=== PATIENT | female | born 1960 | race Hispanic/Latino ===

== ENCOUNTER 2017-09-12 13:34 | Emergency (ER) | payer MEDICAID ==
[2017-09-12 14:24] LABS: APPEARANCE,URINE Clear (CLEAR); BILIRUBIN,URINE Negative (NEGATIVE); COLOR,URINE Yellow (YELLOW); GLUCOSE, URINE (UA) Negative (NEGATIVE); KETONES,URINE Trace mg/dL (NEGATIVE); LEUKOCYTE ESTERASE ,URINE Negative (NEGATIVE); NITRATE,URINE Negative (NEGATIVE); OCCULT BLOOD,URINE Negative (NEGATIVE); PH,URINE 5.5 (5.0-8.0); PROTEIN,URINE Negative (NEGATIVE)
[2017-09-12 14:35] LABS: BACTERIA,URINE Rare /HPF (None Seen); RBC,URINE None Seen /HPF (0-1); WBC,URINE 0-1 /HPF (0-1)
[2017-09-12] MEDS ORDERED: ONDANSETRON HCL 4 MG/2 ML VIAL ONE (14:37)
[2017-09-12 15:00] LABS: BASOPHILS % (AUTO) 0.4 % (0.0-5.0); EOSINOPHILS % (AUTO) 2.2 % (0.0-8.0); HEMATOCRIT 41.1 % (36-48); LYMPHOCYTES % (AUTO) 23.5 % (21.0-51.0); MEAN CORPUSCULAR HEMOGLOBIN 27.5 pg (27.0-33.0); MEAN CORPUSCULAR HGB CONC 33.7 g/dL (32.0-36.0); MEAN CORPUSCULAR VOLUME 81.6 fL (79-99); MONOCYTES % (AUTO) 7.4 % (3.0-13.0); NEUTROPHILS % (AUTO) 66.5 % (40.0-77.0); PLATELET COUNT (AUTO) 223 K/uL (130-400); RED BLOOD CELL COUNT(AUTO) 5.03 MIL/uL (4.00-5.50); RED CELL DISTRIBUTION WIDTH 14.7 % (11.0-15.5); WHITE BLOOD COUNT (AUTO) 5.7 K/uL (4.8-10.8)
[2017-09-12 15:18] LABS: CREATININE 0.7 mg/dL (0.5-1.5); POTASSIUM 3.5 mmol/L (3.5-5.1)
[2017-09-12 15:20] LABS: ALBUMIN 3.4 g/dL (3.5-5.0); BILIRUBIN,DIRECT 0.1 mg/dL (0.0-0.3); BILIRUBIN,TOTAL 0.6 mg/dL (0.2-1.0); TOTAL PROTEIN, SERUM 7.1 g/dL (6.0-8.3)
[2017-09-12] MEDS ORDERED: HYOSCYAMINE SULFATE 0.125 MG TAB.SUBL SL ONE (15:48)
[2017-09-12] MEDS ORDERED: KETOROLAC TROMETHAMINE 30MG/ML ONE (15:48)
[2018-01-28] MEDS ORDERED: ATOR40TA71 PO (10:08)
[2018-01-28] MEDS ORDERED: CYCL30DR OP (10:08)
[2018-01-28] MEDS ORDERED: PANT40TA25 PO (10:08)
[2018-01-28] MEDS ORDERED: ERGO500014 PO (10:08)
[2018-01-28] MEDS ORDERED: METO5TAB87 PO (10:08)
[2018-01-28] MEDS ORDERED: HYDR-2534 PO (10:08)
[2018-01-28] MEDS ORDERED: SUCR1ORA3 PO (10:08)
[2018-01-28] MEDS ORDERED: METO-409 PO (10:08)
[2018-01-28] MEDS ORDERED: ISOS20TA7 PO (10:08)
[2018-01-28] MEDS ORDERED: ENAL20TA PO (10:08)
[2018-01-28] MEDS ORDERED: AMLO5TAB5 PO (10:08)
[2018-01-28] MEDS ORDERED: METF500T6 PO (10:08)
== END 2017-09-12 16:53 | disposition home or self-care (01) ==
LOC: EDH 13:34
DX: R10.84 Generalized abdominal pain (principal); M71.552 Other bursitis, not elsewhere classified, left hip; I25.10 Atherosclerotic heart disease of native coronary artery without angina pectoris; E11.9 Type 2 diabetes mellitus without complications; E78.5 Hyperlipidemia, unspecified; I10 Essential (primary) hypertension; Z90.49 Acquired absence of other specified parts of digestive tract; Z98.890 Other specified postprocedural states
CPT/HCPCS: 36415; 74176; 80048; 80076; 81001; 83690; 85025; 96374; 96375; 99285; J1885; J2405

== ENCOUNTER 2017-10-08 16:08 | Emergency (ER) | payer MEDICAID ==
[2017-10-08 16:51] LABS: BASOPHILS % (AUTO) 0.8 % (0.0-5.0); EOSINOPHILS % (AUTO) 3.8 % (0.0-8.0); HEMATOCRIT 40.3 % (36-48); LYMPHOCYTES % (AUTO) 33.1 % (21.0-51.0); MEAN CORPUSCULAR HEMOGLOBIN 28.4 pg (27.0-33.0); MEAN CORPUSCULAR HGB CONC 34.5 g/dL (32.0-36.0); MEAN CORPUSCULAR VOLUME 82.1 fL (79-99); MONOCYTES % (AUTO) 7.4 % (3.0-13.0); NEUTROPHILS % (AUTO) 54.9 % (40.0-77.0); PLATELET COUNT (AUTO) 239 K/uL (130-400); RED BLOOD CELL COUNT(AUTO) 4.91 MIL/uL (4.00-5.50); RED CELL DISTRIBUTION WIDTH 14.2 % (11.0-15.5); WHITE BLOOD COUNT (AUTO) 6.5 K/uL (4.8-10.8)
[2017-10-08 16:59] LABS: CREATININE 0.8 mg/dL (0.5-1.5); POTASSIUM 3.8 mmol/L (3.5-5.1)
[2017-10-08 17:03] LABS: ALBUMIN 3.5 g/dL (3.5-5.0); BILIRUBIN,TOTAL 0.3 mg/dL (0.2-1.0); TOTAL PROTEIN, SERUM 7.4 g/dL (6.0-8.3)
[2018-01-28] MEDS ORDERED: METF500T6 PO (10:08)
[2018-01-28] MEDS ORDERED: PANT40TA25 PO (10:08)
[2018-01-28] MEDS ORDERED: METO-409 PO (10:08)
[2018-01-28] MEDS ORDERED: ISOS20TA7 PO (10:08)
[2018-01-28] MEDS ORDERED: AMLO5TAB5 PO (10:08)
[2018-01-28] MEDS ORDERED: HYDR-2534 PO (10:08)
[2018-01-28] MEDS ORDERED: METO5TAB87 PO (10:08)
[2018-01-28] MEDS ORDERED: ERGO500014 PO (10:08)
[2018-01-28] MEDS ORDERED: SUCR1ORA3 PO (10:08)
[2018-01-28] MEDS ORDERED: CYCL30DR OP (10:08)
[2018-01-28] MEDS ORDERED: ENAL20TA PO (10:08)
[2018-01-28] MEDS ORDERED: ATOR40TA71 PO (10:08)
== END 2017-10-08 18:54 | disposition home or self-care (01) ==
LOC: EDH 16:08
DX: F41.9 Anxiety disorder, unspecified (principal); E11.9 Type 2 diabetes mellitus without complications; I10 Essential (primary) hypertension; I25.10 Atherosclerotic heart disease of native coronary artery without angina pectoris; E78.5 Hyperlipidemia, unspecified; Z98.890 Other specified postprocedural states
CPT/HCPCS: 36415; 80053; 84484; 85025; 93005

== ENCOUNTER 2017-11-20 13:46 | Emergency (ER) | payer MEDICAID ==
[2017-11-20] MEDS ORDERED: KETOROLAC TROMETHAMINE 30MG/ML ONE (15:04)
[2018-01-28] MEDS ORDERED: HYDR-2534 PO (10:08)
[2018-01-28] MEDS ORDERED: ENAL20TA PO (10:08)
[2018-01-28] MEDS ORDERED: ATOR40TA71 PO (10:08)
[2018-01-28] MEDS ORDERED: SUCR1ORA3 PO (10:08)
[2018-01-28] MEDS ORDERED: ISOS20TA7 PO (10:08)
[2018-01-28] MEDS ORDERED: CYCL30DR OP (10:08)
[2018-01-28] MEDS ORDERED: PANT40TA25 PO (10:08)
[2018-01-28] MEDS ORDERED: METO-409 PO (10:08)
[2018-01-28] MEDS ORDERED: ERGO500014 PO (10:08)
[2018-01-28] MEDS ORDERED: AMLO5TAB5 PO (10:08)
[2018-01-28] MEDS ORDERED: METF500T6 PO (10:08)
[2018-01-28] MEDS ORDERED: METO5TAB87 PO (10:08)
== END 2017-11-20 15:25 | disposition home or self-care (01) ==
LOC: EDH 13:46
DX: K08.89 Other specified disorders of teeth and supporting structures (principal); H92.01 Otalgia, right ear; I25.10 Atherosclerotic heart disease of native coronary artery without angina pectoris; E11.9 Type 2 diabetes mellitus without complications; E78.5 Hyperlipidemia, unspecified; I10 Essential (primary) hypertension
CPT/HCPCS: 96372; 99283; J1885

== ENCOUNTER 2018-01-21 03:58 | Emergency (ER) | payer MEDICAID ==
[2018-01-21] MEDS ORDERED: HYDROCODONE/ACETAMINOPHEN 7.5/325 MG 15 ML UDCUP ONE (04:32)
[2018-01-21 04:46] LABS: CREATININE 0.8 mg/dL (0.5-1.5); POTASSIUM 3.5 mmol/L (3.5-5.1)
[2018-01-21 04:51] LABS: ALBUMIN 3.3 g/dL (3.5-5.0); BILIRUBIN,TOTAL 0.2 mg/dL (0.2-1.0); TOTAL PROTEIN, SERUM 6.9 g/dL (6.0-8.3)
[2018-01-21 05:04] LABS: BASOPHILS % (AUTO) 0.5 % (0.0-5.0); EOSINOPHILS % (AUTO) 2.7 % (0.0-8.0); HEMATOCRIT 36.5 % (36-48); LYMPHOCYTES % (AUTO) 34.1 % (21.0-51.0); MEAN CORPUSCULAR HEMOGLOBIN 29.3 pg (27.0-33.0); MEAN CORPUSCULAR HGB CONC 34.7 g/dL (32.0-36.0); MEAN CORPUSCULAR VOLUME 84.5 fL (79-99); NEUTROPHILS % (AUTO) 54.7 % (40.0-77.0); NUCLEATED RED BLOOD CELLS 0.1 % (0.0-0.19); PLATELET COUNT (AUTO) 220 K/uL (130-400); RED BLOOD CELL COUNT(AUTO) 4.32 MIL/uL (4.00-5.50); RED CELL DISTRIBUTION WIDTH 14.6 % (11.0-15.5); WHITE BLOOD COUNT (AUTO) 8.1 K/uL (4.8-10.8)
[2018-01-21] MEDS ORDERED: KETOROLAC TROMETHAMINE 30MG/ML ONE (06:34)
[2018-01-28] MEDS ORDERED: PANT40TA25 PO (10:08)
[2018-01-28] MEDS ORDERED: ERGO500014 PO (10:08)
[2018-01-28] MEDS ORDERED: METF500T6 PO (10:08)
[2018-01-28] MEDS ORDERED: CYCL30DR OP (10:08)
[2018-01-28] MEDS ORDERED: METO5TAB87 PO (10:08)
[2018-01-28] MEDS ORDERED: HYDR-2534 PO (10:08)
[2018-01-28] MEDS ORDERED: AMLO5TAB5 PO (10:08)
[2018-01-28] MEDS ORDERED: ISOS20TA7 PO (10:08)
[2018-01-28] MEDS ORDERED: METO-409 PO (10:08)
[2018-01-28] MEDS ORDERED: ATOR40TA71 PO (10:08)
[2018-01-28] MEDS ORDERED: ENAL20TA PO (10:08)
[2018-01-28] MEDS ORDERED: SUCR1ORA3 PO (10:08)
== END 2018-01-21 06:50 | disposition home or self-care (01) ==
LOC: EDH 03:58
DX: R10.9 Unspecified abdominal pain (principal); G89.29 Other chronic pain; E11.9 Type 2 diabetes mellitus without complications; I10 Essential (primary) hypertension; E78.5 Hyperlipidemia, unspecified; I25.10 Atherosclerotic heart disease of native coronary artery without angina pectoris; Z98.51 Tubal ligation status; Z90.49 Acquired absence of other specified parts of digestive tract
CPT/HCPCS: 36415; 76705; 80053; 85025; 96374; 99285; J1885

== ENCOUNTER 2018-01-29 08:49 | Day surgery (SDC) | payer MEDICAID ==
[~2018-01-29] VITALS: Ht 160 cm; Wt 106.6 kg
[~2018-01-29 08:49] MED LIST: AMLO5TAB5 PO; ATOR40TA71 PO; CYCL30DR OP; ENAL20TA PO; ERGO500014 PO; HYDR-2534 PO; ISOS20TA7 PO; METF500T6 PO; METO-409 PO; METO5TAB87 PO; PANT40TA25 PO; SODIUM CHLORIDE 0.9% 1000ML 1,000 ML IV ONE; SUCR1ORA3 PO
[2018-01-29 09:33] VITALS: BP 148/62
[2018-01-29] MEDS ORDERED: PROPOFOL 10 MG/ML 20ML VIAL IV ONE ×2 (10:09)
[2018-01-29 10:21] VITALS: BP 117/60
[2018-01-29 10:27] VITALS: BP 121/62
[2018-01-29 10:30] VITALS: BP 117/68
== END 2018-01-29 10:51 | disposition home or self-care (01) ==
LOC: ENDO 08:49 → DAH 08:49 → ENDO 10:51
PROVIDERS: ATTEND Internal Medicine Gastroenterology
DX: K29.50 Unspecified chronic gastritis without bleeding (principal); K22.8 Other specified diseases of esophagus; E78.5 Hyperlipidemia, unspecified; I10 Essential (primary) hypertension; E66.9 Obesity, unspecified; M19.90 Unspecified osteoarthritis, unspecified site; M54.16 Radiculopathy, lumbar region; E11.43 Type 2 diabetes mellitus with diabetic autonomic (poly)neuropathy; K31.84 Gastroparesis; G25.81 Restless legs syndrome; Z90.49 Acquired absence of other specified parts of digestive tract; Z98.890 Other specified postprocedural states; Z68.41 Body mass index [BMI] 40.0-44.9, adult; Z79.899 Other long term (current) drug therapy; Z79.84 Long term (current) use of oral hypoglycemic drugs; Z79.4 Long term (current) use of insulin; K21.9 Gastro-esophageal reflux disease without esophagitis; K76.0 Fatty (change of) liver, not elsewhere classified; G47.30 Sleep apnea, unspecified
CPT/HCPCS: 43239; 82948 ×2; 88305; 88312; A4606; J2704 ×2; J7030

== ENCOUNTER → 2018-09-09 | Outpatient (CLI) | payer MEDICAID ==
[~2018-09-09] MED LIST changes: +METF-444 PO; -METF500T6 PO; -SODIUM CHLORIDE 0.9% 1000ML 1,000 ML IV ONE
== END | disposition home or self-care (01) ==
LOC: RAH 09:24
PROVIDERS: ATTEND Internal Medicine Gastroenterology
DX: K21.9 Gastro-esophageal reflux disease without esophagitis (principal); K31.84 Gastroparesis; R13.10 Dysphagia, unspecified
CPT/HCPCS: 74240

== ENCOUNTER 2018-09-16 16:36 | Observation (INO) | payer MEDICAID ==
[2018-09-16 17:08] LABS: BASOPHILS % (AUTO) 0.4 % (0.0-5.0); EOSINOPHILS % (AUTO) 2.5 % (0.0-8.0); HEMATOCRIT 40.6 % (36-48); LYMPHOCYTES % (AUTO) 36.6 % (21.0-51.0); MEAN CORPUSCULAR HEMOGLOBIN 27.1 pg (27.0-33.0); MEAN CORPUSCULAR VOLUME 81.9 fL (79-99); MONOCYTES % (AUTO) 8.7 % (3.0-13.0); NEUTROPHILS % (AUTO) 51.8 % (40.0-77.0); NUCLEATED RED BLOOD CELLS 0.1 % (0.0-0.19); PLATELET COUNT (AUTO) 207 K/uL (130-400); RED BLOOD CELL COUNT(AUTO) 4.95 MIL/uL (4.00-5.50); RED CELL DISTRIBUTION WIDTH 14.9 % (11.0-15.5); WHITE BLOOD COUNT (AUTO) 6.6 K/uL (4.8-10.8)
[2018-09-16] MEDS ORDERED: ONDANSETRON HCL 4 MG/2 ML VIAL ONE (17:13)
[2018-09-16] MEDS ORDERED: MORPHINE SULFATE 4 MG/1ML SYG ONE ×2 (17:13→19:55)
[2018-09-16 17:21] LABS: CARBON DIOXIDE 28 mmol/L (21-32); CHLORIDE 103 mmol/L (101-111); CREATININE 0.8 mg/dL (0.5-1.5); GLOMERULAR FILTR. RATE CALC 78 mL/min (>60); GLUCOSE,RANDOM 117 mg/dL (70-105); POTASSIUM 4.1 mmol/L (3.5-5.1); SODIUM SERUM 141 mmol/L (136-145); UREA NITROGEN, BLOOD 14 mg/dL (7-18)
[2018-09-16 17:31] LABS: INR 0.92 (0.85-1.15); PARTIAL THROMBOPLASTIN TIME 25.1 SEC (26.3-35.5); PROTHROMBIN TIME 9.7 SEC (9.6-11.6)
[2018-09-16 17:34] LABS: ALANINE AMINOTRANSFERASE 40 U/L (12-78); ALBUMIN 3.5 g/dL (3.5-5.0); ASPARTATE AMINOTRANSFERASE 24 U/L (10-37); BILIRUBIN,TOTAL 0.3 mg/dL (0.2-1.0); CREATINE KINASE, TOTAL 78 U/L (21-232); MYOGLOBIN 29 ng/mL (10-92); TOTAL PROTEIN, SERUM 7.1 g/dL (6.0-8.3); TROPONIN I < 0.04 ng/mL (0.00-0.06)
[2018-09-16] MEDS ORDERED: IOHEXOL 350 MG/ML 100ML INFUS..BTL IV ONE ×2 (17:53→18:32)
[2018-09-16] MEDS ORDERED: LABETALOL HCL 5 MG/ML 20ML VIAL IV ONE (19:36)
[2018-09-16] MEDS ORDERED: ASPIRIN 325 MG TABLET ONE (19:55)
[2018-09-16] MEDS ORDERED: NITROGLYCERIN 1GM/1 INCH PACKET TD ONE (19:55)
[2018-09-16] MEDS ORDERED: ACETAMINOPHEN 325 MG TAB PO PRN (21:30)
[2018-09-16] MEDS ORDERED: ONDANSETRON HCL 4 MG/2 ML VIAL IV PRN (21:30)
[2018-09-16] MEDS ORDERED: NITROGLYCERIN 1GM/1 INCH PACKET TD SCH (21:30)
[2018-09-16] MEDS ORDERED: MORPHINE SULFATE 2 MG/ML 1ML SYG IV PRN (21:30)
[2018-09-16 21:32] LABS: APPEARANCE,URINE Cloudy (CLEAR); BILIRUBIN,URINE Negative (NEGATIVE); COLOR,URINE Yellow (YELLOW); GLUCOSE, URINE (UA) Negative (NEGATIVE); KETONES,URINE Negative (NEGATIVE); LEUKOCYTE ESTERASE ,URINE Negative (NEGATIVE); NITRATE,URINE Negative (NEGATIVE); OCCULT BLOOD,URINE Negative (NEGATIVE); PROTEIN,URINE Negative (NEGATIVE); UROBILINOGEN,URINE 0.2 mg/dL (0.2-1.0)
[2018-09-16 21:55] LABS: BACTERIA,URINE Rare /HPF (None Seen); MUCUS,URINE None Seen LPF (None Seen); RBC,URINE 0-1 /HPF (0-1); WBC,URINE 0-1 /HPF (0-1)
[2018-09-17] MEDS ORDERED: ONDANSETRON HCL 4 MG/2 ML VIAL ONE ×2 (01:30→05:50)
[2018-09-17] MEDS ORDERED: MORPHINE SULFATE 2 MG/ML 1ML SYG ONE ×2 (01:30→05:51)
[2018-09-17 05:54] LABS: BASOPHILS % (AUTO) 0.4 % (0.0-5.0); EOSINOPHILS % (AUTO) 2.6 % (0.0-8.0); HEMATOCRIT 38.6 % (36-48); LYMPHOCYTES % (AUTO) 34.1 % (21.0-51.0); MEAN CORPUSCULAR HEMOGLOBIN 27.5 pg (27.0-33.0); MEAN CORPUSCULAR HGB CONC 33.6 g/dL (32.0-36.0); MEAN CORPUSCULAR VOLUME 81.8 fL (79-99); MONOCYTES % (AUTO) 7.9 % (3.0-13.0); NUCLEATED RED BLOOD CELLS 0.1 % (0.0-0.19); PLATELET COUNT (AUTO) 216 K/uL (130-400); RED BLOOD CELL COUNT(AUTO) 4.71 MIL/uL (4.00-5.50); RED CELL DISTRIBUTION WIDTH 15.5 % (11.0-15.5); WHITE BLOOD COUNT (AUTO) 5.9 K/uL (4.8-10.8)
[2018-09-17 06:11] LABS: CREATININE 0.6 mg/dL (0.5-1.5); POTASSIUM 4.3 mmol/L (3.5-5.1)
[2018-09-17 06:17] LABS: ALBUMIN 3.1 g/dL (3.5-5.0); BILIRUBIN,TOTAL 0.4 mg/dL (0.2-1.0); TOTAL PROTEIN, SERUM 6.7 g/dL (6.0-8.3)
[2018-09-17] MEDS ORDERED: ASPIRIN 325 MG TABLET ONE (08:24)
[2018-09-17] MEDS ORDERED: AMLODIPINE BESYLATE 5 MG TAB PO ONE (08:25)
[2018-09-17] MEDS ORDERED: NITROGLYCERIN 1GM/1 INCH PACKET TD ONE (08:25)
[2018-09-17] MEDS ORDERED: ENOXAPARIN SODIUM 40 MG/0.4 ML SYRINGE SQ ONE (08:25)
[2018-09-17] MEDS ORDERED: FAMOTIDINE/PF 20 MG/2 ML VIAL IV ONE (08:26)
[2018-09-17] MEDS ORDERED: METOCLOPRAMIDE 5 MG TABLET ONE (08:26)
[2018-09-17] MEDS ORDERED: SUCRALFATE 1 GM TABLET ONE (08:26)
[2018-09-17] MEDS ORDERED: NITROGLYCERIN 1GM/1 INCH PACKET TD SCH (08:52)
[2018-09-17] MEDS ORDERED: AMLODIPINE BESYLATE 5 MG TAB PO SCH (09:00)
[2018-09-17] MEDS ORDERED: ASPIRIN 325 MG TABLET PO SCH (09:00)
[2018-09-17] MEDS ORDERED: SUCRALFATE 1 GM/10 ML PO SCH (09:00)
[2018-09-17] MEDS ORDERED: METOCLOPRAMIDE 5 MG TABLET PO SCH (09:00)
[2018-09-17] MEDS ORDERED: PANTOPRAZOLE SODIUM 40 MG TABLET.DR PO SCH (09:00)
[2018-09-17] MEDS ORDERED: Cyclosporine (Restasis) 1 EACH OP SCH (09:00)
[2018-09-17] MEDS ORDERED: ATORVASTATIN CALCIUM 40 MG TABLET PO SCH (09:00)
[2018-09-17] MEDS ORDERED: Metoprolol Succinate 100 MG PO SCH (09:00)
[2018-09-17] MEDS ORDERED: METFORMIN HCL 500 MG TABLET PO SCH (09:00)
[2018-09-17] MEDS ORDERED: HYDROCHLOROTHIAZIDE 25 MG TABLET PO SCH (09:00)
[2018-09-17] MEDS ORDERED: ENALAPRIL MALEATE 10 MG TABLET PO SCH (09:00)
[2018-09-17] MEDS ORDERED: ENOXAPARIN SODIUM 40 MG/0.4 ML SYRINGE SQ SCH (09:00)
[2018-09-17] MEDS ORDERED: FAMOTIDINE/PF 20 MG/2 ML VIAL IV SCH (09:00)
[2018-09-17] MEDS ORDERED: ISOSORBIDE MONONITRATE 20 MG TABLET PO SCH ×2 (09:00)
[2018-09-17] MEDS ORDERED: INSULIN HUMULIN R 100 UNIT/ML 3ML SQ SCH (11:30)
== END 2018-09-17 13:15 | disposition home or self-care (01) ==
LOC: EDH 16:36 → EDHIP 16:37
PROVIDERS: ADMIT Internal Medicine; ATTEND Internal Medicine
DX: I25.110 Atherosclerotic heart disease of native coronary artery with unstable angina pectoris (principal); I11.9 Hypertensive heart disease without heart failure; E11.9 Type 2 diabetes mellitus without complications; E78.5 Hyperlipidemia, unspecified; N20.0 Calculus of kidney; N28.1 Cyst of kidney, acquired; E66.01 Morbid (severe) obesity due to excess calories; Z79.84 Long term (current) use of oral hypoglycemic drugs; Z96.653 Presence of artificial knee joint, bilateral; Z82.49 Family history of ischemic heart disease and other diseases of the circulatory system; Z82.3 Family history of stroke; Z91.81 History of falling; Z83.3 Family history of diabetes mellitus; Z90.49 Acquired absence of other specified parts of digestive tract; Z98.51 Tubal ligation status; Z79.01 Long term (current) use of anticoagulants
CPT/HCPCS: 36415 ×2; 71045; 71275; 74174; 80053 ×2; 81001; 82550; 83874; 84484 ×3; 85025 ×2; 85378; 85610; 85730; 93005; 99291; G0378 ×21; J1650; J2270 ×2; J2405 ×3; J3490 ×2; Q9967 ×2

== ENCOUNTER 2018-09-21 01:35 | Observation (INO) | payer MEDICAID ==
[~2018-09-21] VITALS: Ht 160 cm; Wt 110.8 kg
[~2018-09-21 01:35] MED LIST changes: -ENAL20TA PO; -HYDR-2534 PO; -METO5TAB87 PO
[2018-09-21 02:02] LABS: BASOPHILS % (AUTO) 0.6 % (0.0-5.0); EOSINOPHILS % (AUTO) 3.7 % (0.0-8.0); HEMATOCRIT 40.6 % (36-48); LYMPHOCYTES % (AUTO) 39.1 % (21.0-51.0); MEAN CORPUSCULAR HEMOGLOBIN 27.5 pg (27.0-33.0); MEAN CORPUSCULAR HGB CONC 33.4 g/dL (32.0-36.0); MEAN CORPUSCULAR VOLUME 82.5 fL (79-99); MONOCYTES % (AUTO) 9.2 % (3.0-13.0); NEUTROPHILS % (AUTO) 47.4 % (40.0-77.0); NUCLEATED RED BLOOD CELLS 0.1 % (0.0-0.19); PLATELET COUNT (AUTO) 194 K/uL (130-400); RED BLOOD CELL COUNT(AUTO) 4.92 MIL/uL (4.00-5.50); RED CELL DISTRIBUTION WIDTH 14.6 % (11.0-15.5); WHITE BLOOD COUNT (AUTO) 6.1 K/uL (4.8-10.8)
[2018-09-21 02:11] LABS: CREATININE 0.8 mg/dL (0.5-1.5); POTASSIUM 4.3 mmol/L (3.5-5.1)
[2018-09-21 02:16] LABS: ALBUMIN 3.6 g/dL (3.5-5.0); BILIRUBIN,TOTAL 0.2 mg/dL (0.2-1.0); TOTAL PROTEIN, SERUM 7.2 g/dL (6.0-8.3)
[2018-09-21 02:22] LABS: INR 0.93 (0.85-1.15); PARTIAL THROMBOPLASTIN TIME 23.4 SEC (26.3-35.5); PROTHROMBIN TIME 9.8 SEC (9.6-11.6)
[2018-09-21 02:50] LABS: APPEARANCE,URINE Cloudy (CLEAR); BILIRUBIN,URINE Negative (NEGATIVE); COLOR,URINE Yellow (YELLOW); GLUCOSE, URINE (UA) Negative (NEGATIVE); KETONES,URINE Negative (NEGATIVE); LEUKOCYTE ESTERASE ,URINE Negative (NEGATIVE); NITRATE,URINE Negative (NEGATIVE); OCCULT BLOOD,URINE Negative (NEGATIVE); PROTEIN,URINE Negative (NEGATIVE); UROBILINOGEN,URINE 0.2 mg/dL (0.2-1.0)
[2018-09-21] MEDS ORDERED: LORAZEPAM 1 MG TABLET ONE (03:03)
[2018-09-21] MEDS: NITROGLYCERIN 1GM/1 INCH PACKET TD SCH ×3 (03:30→20:32)
[2018-09-21] MEDS ORDERED: MORPHINE SULFATE 2 MG/ML 1ML SYG IV PRN (03:30)
[2018-09-21] MEDS ORDERED: ACETAMINOPHEN 325 MG TAB PO PRN (03:30)
[2018-09-21] MEDS ORDERED: LORAZEPAM 1 MG TABLET PO PRN (03:30)
[2018-09-21] MEDS ORDERED: ONDANSETRON HCL 4 MG/2 ML VIAL IV PRN (03:30)
[2018-09-21] MEDS ORDERED: MORPHINE SULFATE 2 MG/ML 1ML SYG ONE (03:44)
[2018-09-21] MEDS ORDERED: NITROGLYCERIN 1GM/1 INCH PACKET TD ONE (03:44)
[2018-09-21] MEDS ORDERED: ONDANSETRON HCL 4 MG/2 ML VIAL ONE (03:44)
[2018-09-21] MEDS ORDERED: LORA10TA7 PO (06:23)
[2018-09-21] MEDS ORDERED: AEC81 PO (06:23)
[2018-09-21] MEDS ORDERED: OXYB5TAB10 PO (06:23)
[2018-09-21 06:56] VITALS: BP 133/77
[2018-09-21] MEDS: CYCLOSPORINE OP SCH ×2 (09:00→21:00)
[2018-09-21] MEDS: AMLODIPINE BESYLATE 5 MG TAB PO SCH (09:08)
[2018-09-21] MEDS: ISOSORBIDE MONONITRATE 20 MG TABLET PO SCH (09:08)
[2018-09-21] MEDS: ASPIRIN 325 MG TABLET PO SCH (09:09)
[2018-09-21] MEDS: ENOXAPARIN SODIUM 40 MG/0.4 ML SYRINGE SQ SCH ×2 (09:09→20:33)
[2018-09-21] MEDS: PANTOPRAZOLE SODIUM 40 MG TABLET.DR PO SCH (09:09)
[2018-09-21] MEDS: SUCRALFATE 1 GM/10 ML PO SCH ×4 (09:09→20:31)
[2018-09-21] MEDS: FAMOTIDINE/PF 20 MG/2 ML VIAL IV SCH ×2 (09:09→20:32)
[2018-09-21] MEDS: METOPROLOL TARTRATE 50 MG TAB PO SCH ×2 (09:09→20:32)
[2018-09-21 11:30] VITALS: BP 123/65
--- NOTE | 2018-09-21 14:50 | NUR ---
INITIAL: Met with pt and dtr this afternoon to discuss dcp. Prior to admission pt was living w spouse and son. Pt uses a cane for ambulation and requires assist ADLs. She mentions that her dtr assists her as needed. Pt does not own any DME or receive services. Per pt she feels safe and comfortable to return home at [place]. Will continue to follow and wait for Md recommendations. Addendum: 09/21/18 at 1452 by NURIA EDDY Amended: Links added.
[2018-09-21 16:50] VITALS: BP 132/65
[2018-09-21 19:52] VITALS: BP 146/81
[2018-09-21] MEDS ORDERED: ATORVASTATIN CALCIUM 20 MG TABLET PO SCH (21:00)
[2018-09-22] VITALS: BP 134/77
[2018-09-22 04:00] VITALS: BP 131/80
[2018-09-22] MEDS: NITROGLYCERIN 1GM/1 INCH PACKET TD SCH ×3 (05:14→19:30)
[2018-09-22 05:34] LABS: BASOPHILS % (AUTO) 0.6 % (0.0-5.0); HEMATOCRIT 39.2 % (36-48); LYMPHOCYTES % (AUTO) 34.5 % (21.0-51.0); MEAN CORPUSCULAR HEMOGLOBIN 27.5 pg (27.0-33.0); MEAN CORPUSCULAR HGB CONC 33.3 g/dL (32.0-36.0); MEAN CORPUSCULAR VOLUME 82.6 fL (79-99); MONOCYTES % (AUTO) 7.9 % (3.0-13.0); NUCLEATED RED BLOOD CELLS 0.1 % (0.0-0.19); PLATELET COUNT (AUTO) 204 K/uL (130-400); RED BLOOD CELL COUNT(AUTO) 4.75 MIL/uL (4.00-5.50); RED CELL DISTRIBUTION WIDTH 14.6 % (11.0-15.5); WHITE BLOOD COUNT (AUTO) 5.7 K/uL (4.8-10.8)
[2018-09-22 05:50] LABS: CREATININE 0.6 mg/dL (0.5-1.5); POTASSIUM 3.8 mmol/L (3.5-5.1); THYROID STIMULATING HORMONE 2.52 uIU/mL (0.36-3.74)
[2018-09-22 08:00] VITALS: BP 152/92
[2018-09-22] MEDS: SUCRALFATE 1 GM/10 ML PO SCH ×3 (08:35→17:00)
[2018-09-22] MEDS: ENOXAPARIN SODIUM 40 MG/0.4 ML SYRINGE SQ SCH (08:35)
[2018-09-22] MEDS: PANTOPRAZOLE SODIUM 40 MG TABLET.DR PO SCH (08:36)
[2018-09-22] MEDS: AMLODIPINE BESYLATE 5 MG TAB PO SCH (08:36)
[2018-09-22] MEDS: CYCLOSPORINE OP SCH (08:36)
[2018-09-22] MEDS: ASPIRIN 325 MG TABLET PO SCH (08:36)
[2018-09-22] MEDS: ISOSORBIDE MONONITRATE 20 MG TABLET PO SCH (08:36)
[2018-09-22] MEDS: METOPROLOL TARTRATE 50 MG TAB PO SCH (08:36)
[2018-09-22] MEDS: FAMOTIDINE/PF 20 MG/2 ML VIAL IV SCH (08:36)
[2018-09-22 12:00] VITALS: BP 134/76
[2018-09-22 13:20] LABS: APPEARANCE,URINE CLOUDY (CLEAR); BILIRUBIN,URINE NEGATIVE (NEGATIVE); COLOR,URINE YELLOW (YELLOW); GLUCOSE, URINE (UA) NEGATIVE (NEGATIVE); KETONES,URINE NEGATIVE (NEGATIVE); LEUKOCYTE ESTERASE ,URINE SMALL (NEGATIVE); NITRATE,URINE NEGATIVE (NEGATIVE); OCCULT BLOOD,URINE SMALL (NEGATIVE); PROTEIN,URINE NEGATIVE (NEGATIVE); UROBILINOGEN,URINE 0.2 mg/dL (0.2-1.0)
[2018-09-22 13:28] LABS: AMPHET/METH SCREEN,URINE NEGATIVE (NEGATIVE); BARBITURATE SCREEN, URINE NEGATIVE (NEGATIVE); BENZODIAZEPINES SCREEN,URINE NEGATIVE (NEGATIVE); CANNABINOID SCREEN,URINE NEGATIVE (NEGATIVE); COCAINE SCREEN,URINE NEGATIVE (NEGATIVE); OPIATE SCREEN,URINE NEGATIVE (NEGATIVE); PHENCYCLIDINE SCREEN,URINE NEGATIVE (NEGATIVE)
[2018-09-22 13:36] LABS: BACTERIA,URINE Rare /HPF (None Seen); RBC,URINE 0-1 /HPF (0-1); SQUAMOUS EPITHELIAL CELL,UR Rare /HPF (0-2); WBC,URINE 51-100 /HPF (0-1)
[2018-09-22 16:00] VITALS: BP 119/80
--- NOTE | 2018-09-22 17:00 | NUR ---
PT D/C WITH EDUCATION GIVEN USING TEACH BACK SATISFACTORILY IV REMOVED, CATHETER INTACT NO SIGNS OF DISTRESS NOTED PT DENIES SOB OR CHEST PAIN
== END 2018-09-22 17:00 | disposition home or self-care (01) ==
LOC: EDH 01:35 → EDHIP 01:36 → 4CH 05:49
PROVIDERS: ADMIT Hospitalist; ATTEND Hospitalist
DX: R07.89 Other chest pain (principal); R00.2 Palpitations; E11.9 Type 2 diabetes mellitus without complications; I11.9 Hypertensive heart disease without heart failure; E78.5 Hyperlipidemia, unspecified; G47.33 Obstructive sleep apnea (adult) (pediatric); I25.10 Atherosclerotic heart disease of native coronary artery without angina pectoris; E66.01 Morbid (severe) obesity due to excess calories; Z82.3 Family history of stroke; Z83.3 Family history of diabetes mellitus; Z82.49 Family history of ischemic heart disease and other diseases of the circulatory system; Z79.84 Long term (current) use of oral hypoglycemic drugs; Z23 Encounter for immunization; Z79.899 Other long term (current) drug therapy
CPT/HCPCS: 36415 ×2; 71045; 80048; 80053; 80305; 81001; 81003; 82550; 82948 ×6; 83880; 84443; 84484 ×2; 85025 ×2; 85610; 85730; 93005; 96372 ×2; 96374; 96375; 96376 ×2; 99284; G0008; G0378 ×39; J1650 ×3; J2405 ×2; J3490 ×3; Q2035

== ENCOUNTER → 2018-11-06 | Outpatient (CLI) | payer MEDICAID ==
[~2018-11-06] MED LIST changes: +AEC81 PO; +LORA10TA7 PO; +OXYB5TAB10 PO
--- NOTE | 2018-11-06 13:47 | NUR ---
MBSS COMPLETED. -S/S OF ASPIRATION. RECOMMEND REGULAR, THIN LIQUID DIET; PILLS WHOLE WITH LIQUIDS. GI CONSULT. PATIENT INFORMATION: Pt IS A 58Y.O. FEMALE REFERRED FOR A MBSS SECONDARY TO DIFFICULTY SWALLOWING. Pt STATES THAT SHE FEELS LIKE SHE IS VERY FULL QUICKLY AFTER EATING. SHE STATES THAT SHE FEELS A PAIN IN THE MID SECTION OF HER ABDOMEN WHEN SHE EATS. Pt HAS A PAST MEDICAL HISTORY SIGNIFICANT FOR NON-INSULIN DEPENDENT DIABETES MELLITUS, CORONARY ARTERY DISEASE, HYPERLIPIDEMIA, HYPERTENSION, OBESITY, AND GERD (ON PROTONIX). MBSS INTERPRETATION: SWALLOW FUNCTION AND EFFICIENCY WITHIN FUNCTIONAL LIMITS. ORAL MOTOR STRENGTH, COORDINATION, AND ROM WITHIN FUNCTIONAL LIMITS. LARYNGEAL ELEVATION/EXCURSION STRONG WITH TIMELY PHARYNGEAL RESPONSE. NO OVERT SIGNS OR SYMPTOMS OF ASPIRATION PRESENT DURING MBSS. A-P VIEW: REFLUX OF BOLUS WITHIN THE ESOPHAGUS WITH RESIDUE IN UPPER 1/3 OF ESOPHAGUS NOT EXCEEDING UPPER ESOPHAGEAL SPHINCTER. RECOMMENDATIONS: 1. REGULAR TEXTURE, THIN LIQUID DIET; PILLS WHOLE WITH LIQUIDS. 2. COMPENSATORY STRATEGIES (PROPHYLAXIS): *SEATED AT 90 DEGREE ANGLE *ALTERNATE BITES AND SIPS *SLOW RATE *REMAIN UPRIGHT 30 MINUTES AFTER MEAL TIMES 3. GI CONSULT DUE TO A-P VIEW FINDINGS G-CODES SWALLOWING: [id number]
== END | disposition home or self-care (01) ==
LOC: RAH 10:50
PROVIDERS: ATTEND Internal Medicine
DX: R13.13 Dysphagia, pharyngeal phase (principal); R63.3 Feeding difficulties
CPT/HCPCS: 74230

== ENCOUNTER 2018-11-09 23:13 | Emergency (ER) | payer MEDICAID ==
[2018-11-09 23:35] LABS: BASOPHILS % (AUTO) 0.4 % (0.0-5.0); EOSINOPHILS % (AUTO) 2.9 % (0.0-8.0); HEMATOCRIT 41.1 % (36-48); LYMPHOCYTES % (AUTO) 21.3 % (21.0-51.0); MEAN CORPUSCULAR HEMOGLOBIN 27.6 pg (27.0-33.0); MEAN CORPUSCULAR HGB CONC 33.7 g/dL (32.0-36.0); MEAN CORPUSCULAR VOLUME 81.9 fL (79-99); MONOCYTES % (AUTO) 6.5 % (3.0-13.0); NEUTROPHILS % (AUTO) 68.9 % (40.0-77.0); PLATELET COUNT (AUTO) 192 K/uL (130-400); RED BLOOD CELL COUNT(AUTO) 5.02 MIL/uL (4.00-5.50); RED CELL DISTRIBUTION WIDTH 14.4 % (11.0-15.5); WHITE BLOOD COUNT (AUTO) 6.3 K/uL (4.8-10.8)
[2018-11-09 23:35] LABS: APPEARANCE,URINE Clear (CLEAR); BILIRUBIN,URINE Negative (NEGATIVE); COLOR,URINE Yellow (YELLOW); GLUCOSE, URINE (UA) Negative (NEGATIVE); KETONES,URINE Negative (NEGATIVE); LEUKOCYTE ESTERASE ,URINE Trace (NEGATIVE); NITRATE,URINE Negative (NEGATIVE); OCCULT BLOOD,URINE Negative (NEGATIVE); PH,URINE 5.5 (5.0-8.0); PROTEIN,URINE Negative (NEGATIVE)
[2018-11-09 23:40] LABS: HCG,QUAL RESULT NEGATIVE (NEGATIVE)
[2018-11-09 23:42] LABS: CREATININE 0.7 mg/dL (0.5-1.5); POTASSIUM 3.9 mmol/L (3.5-5.1)
[2018-11-09 23:46] LABS: ALBUMIN 3.8 g/dL (3.5-5.0); BILIRUBIN,TOTAL 0.3 mg/dL (0.2-1.0); TOTAL PROTEIN, SERUM 7.5 g/dL (6.0-8.3)
[2018-11-09] MEDS ORDERED: ONDANSETRON HCL 4 MG/2 ML VIAL ONE (23:55)
[2018-11-09] MEDS ORDERED: MORPHINE SULFATE 4 MG/1ML SYG ONE (23:56)
[2018-11-10 00:02] LABS: BACTERIA,URINE None Seen /HPF (None Seen); RBC,URINE None Seen /HPF (0-1); SQUAMOUS EPITHELIAL CELL,UR Rare /HPF (0-2); WBC,URINE 0-1 /HPF (0-1)
== END 2018-11-10 01:19 | disposition home or self-care (01) ==
LOC: EDH 23:13
DX: N20.0 Calculus of kidney (principal); I10 Essential (primary) hypertension; E11.9 Type 2 diabetes mellitus without complications; I25.10 Atherosclerotic heart disease of native coronary artery without angina pectoris; E78.5 Hyperlipidemia, unspecified; Z90.49 Acquired absence of other specified parts of digestive tract; Z98.51 Tubal ligation status; Z98.890 Other specified postprocedural states
CPT/HCPCS: 36415 ×2; 74176; 80053; 81001; 81025; 83690; 85025; 96374; 96375; 99284; J2270; J2405

== ENCOUNTER → 2018-12-09 | Outpatient (CLI) | payer MEDICAID | END | disposition home or self-care (01) | LOC: RAH 11:05 | PROVIDERS: ATTEND Internal Medicine Gastroenterology | DX: R10.10 Upper abdominal pain, unspecified (principal); K31.84 Gastroparesis; R11.2 Nausea with vomiting, unspecified | CPT/HCPCS: 78264; A9541 ==

== ENCOUNTER 2019-01-01 23:16 | Emergency (ER) | payer MEDICAID ==
[2019-01-01 23:56] LABS: BASOPHILS % (AUTO) 0.8 % (0.0-5.0); EOSINOPHILS % (AUTO) 5.1 % (0.0-8.0); HEMATOCRIT 38.6 % (36-48); LYMPHOCYTES % (AUTO) 39.3 % (21.0-51.0); MEAN CORPUSCULAR HEMOGLOBIN 27.7 pg (27.0-33.0); MEAN CORPUSCULAR HGB CONC 33.3 g/dL (32.0-36.0); NEUTROPHILS % (AUTO) 46.8 % (40.0-77.0); PLATELET COUNT (AUTO) 184 K/uL (130-400); RED BLOOD CELL COUNT(AUTO) 4.64 MIL/uL (4.00-5.50); RED CELL DISTRIBUTION WIDTH 14.8 % (11.0-15.5); WHITE BLOOD COUNT (AUTO) 5.8 K/uL (4.8-10.8)
[2019-01-01 23:58] LABS: RAPID GROUP A STREP NEGATIVE (NEGATIVE)
[2019-01-02 00:06] LABS: CREATININE 0.7 mg/dL (0.5-1.5); INR 0.91 (0.85-1.15); PARTIAL THROMBOPLASTIN TIME 25.1 SEC (26.3-35.5); PROTHROMBIN TIME 9.6 SEC (9.6-11.6)
[2019-01-02 00:06] LABS: AMYLASE 28 U/L (25-115); LIPASE 93 U/L (114-286)
[2019-01-02 00:11] LABS: ALBUMIN 3.6 g/dL (3.5-5.0); BILIRUBIN,TOTAL 0.2 mg/dL (0.2-1.0); TOTAL PROTEIN, SERUM 7.2 g/dL (6.0-8.3)
[2019-01-02] MEDS ORDERED: ONDANSETRON HCL 4 MG/2 ML VIAL ONE (01:00)
[2019-01-02] MEDS ORDERED: HYOSCYAMINE SULFATE 0.125 MG TAB.SUBL SL ONE (01:01)
[2019-01-02 01:07] LABS: APPEARANCE,URINE Clear (CLEAR); BILIRUBIN,URINE Negative (NEGATIVE); COLOR,URINE Yellow (YELLOW); GLUCOSE, URINE (UA) Negative (NEGATIVE); KETONES,URINE Negative (NEGATIVE); LEUKOCYTE ESTERASE ,URINE Negative (NEGATIVE); NITRATE,URINE Negative (NEGATIVE); OCCULT BLOOD,URINE Negative (NEGATIVE); PROTEIN,URINE Negative (NEGATIVE); UROBILINOGEN,URINE 0.2 mg/dL (0.2-1.0)
== END 2019-01-02 02:20 | disposition home or self-care (01) ==
LOC: EDH 23:16
DX: E86.0 Dehydration (principal); R11.2 Nausea with vomiting, unspecified; E11.9 Type 2 diabetes mellitus without complications; I10 Essential (primary) hypertension; E78.5 Hyperlipidemia, unspecified; I25.10 Atherosclerotic heart disease of native coronary artery without angina pectoris; Z98.51 Tubal ligation status; Z90.49 Acquired absence of other specified parts of digestive tract
CPT/HCPCS: 36415; 71045; 80053; 81003; 82150; 83690; 84484; 85025; 85610; 85730; 87804 ×2; 87880; 93005; 96361; 96374; 99285; J2405

== ENCOUNTER 2019-01-23 00:20 | Emergency (ER) | payer MEDICAID ==
[2019-01-23] MEDS ORDERED: ASPIRIN 325 MG TABLET ONE (00:37)
[2019-01-23 00:52] LABS: BASOPHILS % (AUTO) 0.5 % (0.0-5.0); EOSINOPHILS % (AUTO) 4.9 % (0.0-8.0); HEMATOCRIT 39.4 % (36-48); LYMPHOCYTES % (AUTO) 39.1 % (21.0-51.0); MEAN CORPUSCULAR HEMOGLOBIN 28.1 pg (27.0-33.0); MEAN CORPUSCULAR HGB CONC 33.4 g/dL (32.0-36.0); MEAN CORPUSCULAR VOLUME 84.1 fL (79-99); MONOCYTES % (AUTO) 7.6 % (3.0-13.0); NEUTROPHILS % (AUTO) 47.9 % (40.0-77.0); NUCLEATED RED BLOOD CELLS 0.1 % (0.0-0.19); PLATELET COUNT (AUTO) 172 K/uL (130-400); RED BLOOD CELL COUNT(AUTO) 4.68 MIL/uL (4.00-5.50); RED CELL DISTRIBUTION WIDTH 14.9 % (11.0-15.5); WHITE BLOOD COUNT (AUTO) 6.7 K/uL (4.8-10.8)
[2019-01-23 01:01] LABS: CREATININE 0.7 mg/dL (0.5-1.5); POTASSIUM 3.9 mmol/L (3.5-5.1)
[2019-01-23 01:05] LABS: ALBUMIN 3.8 g/dL (3.5-5.0); BILIRUBIN,TOTAL 0.2 mg/dL (0.2-1.0); INR 0.93 (0.85-1.15); PARTIAL THROMBOPLASTIN TIME 25.9 SEC (26.3-35.5); PROTHROMBIN TIME 9.8 SEC (9.6-11.6); TOTAL PROTEIN, SERUM 7.2 g/dL (6.0-8.3)
[2019-01-23] MEDS ORDERED: LIDOCAINE 5% TOPICAL PATCH TP ONE (02:25)
[2019-01-23] MEDS ORDERED: KETOROLAC TROMETHAMINE 15MG/ML ONE (03:06)
[2019-01-23] MEDS ORDERED: ORPHENADRINE CITRATE 30 MG/ML ML ONE (03:06)
== END 2019-01-23 04:39 | disposition home or self-care (01) ==
LOC: EDH 00:20
DX: M62.830 Muscle spasm of back (principal); M54.6 Pain in thoracic spine; I10 Essential (primary) hypertension; E78.5 Hyperlipidemia, unspecified; E11.9 Type 2 diabetes mellitus without complications; I25.10 Atherosclerotic heart disease of native coronary artery without angina pectoris; Z90.49 Acquired absence of other specified parts of digestive tract; Z98.51 Tubal ligation status
CPT/HCPCS: 36415; 71045; 80053; 82550; 84484 ×2; 85025; 85610; 85730; 93005; 96374; 96375; 99285; J1885; J2360

== ENCOUNTER 2019-03-18 01:12 | Emergency (ER) | payer MEDICAID ==
[2019-03-18] MEDS ORDERED: ASPIRIN 325MG EC TAB 325 MG TABLET.DR PO ONE (01:33)
[2019-03-18] MEDS ORDERED: KETOROLAC TROMETHAMINE 15MG/ML ONE (01:34)
[2019-03-18] MEDS ORDERED: ORPHENADRINE CITRATE 30 MG/ML ML ONE (01:34)
[2019-03-18] MEDS ORDERED: LIDOCAINE 5% TOPICAL PATCH TP ONE (02:13)
== END 2019-03-18 02:52 | disposition home or self-care (01) ==
LOC: EDH 01:12
DX: S29.011A Strain of muscle and tendon of front wall of thorax, initial encounter (principal); R07.89 Other chest pain; I10 Essential (primary) hypertension; E11.9 Type 2 diabetes mellitus without complications; I25.10 Atherosclerotic heart disease of native coronary artery without angina pectoris; E78.5 Hyperlipidemia, unspecified; Z98.51 Tubal ligation status; Z90.49 Acquired absence of other specified parts of digestive tract; Z95.1 Presence of aortocoronary bypass graft; Z96.653 Presence of artificial knee joint, bilateral; X58.XXXA Exposure to other specified factors, initial encounter; Y93.89 Activity, other specified; Y92.89 Other specified places as the place of occurrence of the external cause; Y99.8 Other external cause status
CPT/HCPCS: 84484; 93005; 96372 ×2; 99285; J1885; J2360

== ENCOUNTER 2019-04-16 00:19 | Emergency (ER) | payer MEDICAID ==
[2019-04-16] MEDS ORDERED: ONDANSETRON HCL 4 MG/2 ML VIAL ONE (01:23)
[2019-04-16] MEDS ORDERED: SODIUM CHLORIDE 0.9% 1000ML 1,000 ML IV ONE (01:24)
[2019-04-16 01:25] LABS: BASOPHILS % (AUTO) 0.9 % (0.0-5.0); EOSINOPHILS % (AUTO) 1.9 % (0.0-8.0); HEMATOCRIT 38.5 % (36-48); MEAN CORPUSCULAR HEMOGLOBIN 27.8 pg (27.0-33.0); MEAN CORPUSCULAR HGB CONC 33.5 g/dL (32.0-36.0); MEAN CORPUSCULAR VOLUME 83.1 fL (79-99); MONOCYTES % (AUTO) 7.9 % (3.0-13.0); NEUTROPHILS % (AUTO) 53.3 % (40.0-77.0); NUCLEATED RED BLOOD CELLS 0.1 % (0.0-0.19); PLATELET COUNT (AUTO) 199 K/uL (130-400); RED BLOOD CELL COUNT(AUTO) 4.64 MIL/uL (4.00-5.50); RED CELL DISTRIBUTION WIDTH 13.8 % (11.0-15.5); WHITE BLOOD COUNT (AUTO) 8.3 K/uL (4.8-10.8)
[2019-04-16 01:25] LABS: APPEARANCE,URINE Clear (CLEAR); BILIRUBIN,URINE Negative (NEGATIVE); COLOR,URINE Yellow (YELLOW); GLUCOSE, URINE (UA) Negative (NEGATIVE); KETONES,URINE Trace mg/dL (NEGATIVE); LEUKOCYTE ESTERASE ,URINE Negative (NEGATIVE); NITRATE,URINE Negative (NEGATIVE); OCCULT BLOOD,URINE Negative (NEGATIVE); PH,URINE 5.5 (5.0-8.0); PROTEIN,URINE Negative (NEGATIVE)
[2019-04-16 01:34] LABS: CREATININE 1.1 mg/dL (0.5-1.5); POTASSIUM 4.1 mmol/L (3.5-5.1)
[2019-04-16 01:42] LABS: ALBUMIN 3.7 g/dL (3.5-5.0); BILIRUBIN,TOTAL 0.2 mg/dL (0.2-1.0); TOTAL PROTEIN, SERUM 7.1 g/dL (6.0-8.3)
== END 2019-04-16 02:17 | disposition home or self-care (01) ==
LOC: EDH 00:19
DX: K52.89 Other specified noninfective gastroenteritis and colitis (principal); E11.9 Type 2 diabetes mellitus without complications; I10 Essential (primary) hypertension; E78.5 Hyperlipidemia, unspecified; I25.10 Atherosclerotic heart disease of native coronary artery without angina pectoris; Z90.49 Acquired absence of other specified parts of digestive tract; Z98.51 Tubal ligation status; Z96.653 Presence of artificial knee joint, bilateral
CPT/HCPCS: 36415; 80053; 81003; 83690; 85025; 87804 ×2; 96361; 96374; 99284; J2405; J7030

== ENCOUNTER 2021-07-25 23:55 | Emergency (ER) | payer MEDICAID ==
[~2021-07-25] VITALS: Ht 167.6 cm; Wt 113.4 kg
[~2021-07-25 23:55] MED LIST changes: -ISOS20TA7 PO; +ISOS20TA85 PO; -OXYB5TAB10 PO; +OXYB5TAB15 PO; -PANT40TA25 PO; +PANT40TA54 PO
[2021-07-26] MEDS ORDERED: LIDOCAINE HCL 2% JELLY 5 ML ONE (01:13)
[2021-07-26] MEDS ORDERED: CLIN-141 PO (01:16)
[2021-07-26] MEDS ORDERED: [UNRECOGNIZED DRUG - CODE] MM (01:16)
[2021-07-26 01:27] VITALS: BP 132/78
[2021-07-26] MEDS ORDERED: LIDOCAINE HCL 2% VISCOUS 15 ML UDCUP MM ONE (01:30)
[2021-07-26] MEDS ORDERED: CLINDAMYCIN 150 MG CAP PO ONE (01:30)
[2021-07-26] MEDS ORDERED: ACETAMINOPHEN 500 MG TABLET PO ONE (01:30)
== END 2021-07-26 01:36 | disposition home or self-care (01) ==
LOC: EDH 23:55
DX: K08.89 Other specified disorders of teeth and supporting structures (principal); H92.02 Otalgia, left ear; E11.9 Type 2 diabetes mellitus without complications; E78.00 Pure hypercholesterolemia, unspecified; I10 Essential (primary) hypertension; Z79.82 Long term (current) use of aspirin; Z79.84 Long term (current) use of oral hypoglycemic drugs; Z79.899 Other long term (current) drug therapy; Z98.890 Other specified postprocedural states

== ENCOUNTER 2021-12-07 15:40 | Emergency (ER) | payer MEDICAID ==
[~2021-12-07] VITALS: Ht 160 cm; Wt 112.9 kg
[~2021-12-07 15:40] MED LIST changes: +CLIN-141 PO; +[UNRECOGNIZED DRUG - CODE] MM
[2021-12-07 16:13] VITALS: BP 159/83
[2021-12-07 16:19] LABS: APPEARANCE,URINE Clear (CLEAR); BILIRUBIN,URINE Negative (NEGATIVE); COLOR,URINE Yellow (YELLOW); GLUCOSE, URINE (UA) 250 mg/dL (NEGATIVE); KETONES,URINE Negative (NEGATIVE); LEUKOCYTE ESTERASE ,URINE Negative (NEGATIVE); NITRATE,URINE Negative (NEGATIVE); OCCULT BLOOD,URINE Negative (NEGATIVE); PH,URINE 6.5 (5.0-8.0); PROTEIN,URINE Negative (NEGATIVE); UROBILINOGEN,URINE 0.2 mg/dL (0.2-1.0)
[2021-12-07 16:30] LABS: BACTERIA,URINE Few /HPF (None Seen); MUCUS,URINE Rare LPF (None Seen); RBC,URINE 0-1 /HPF (0-1); SQUAMOUS EPITHELIAL CELL,UR Few /HPF (0-2); WBC,URINE 0-1 /HPF (0-1)
[2021-12-07] MEDS ORDERED: ASPIRIN 325MG TAB PO ONE (16:30)
[2021-12-07 16:31] LABS: BASOPHILS % (AUTO) 0.4 % (0.0-5.0); EOSINOPHILS % (AUTO) 2.1 % (0.0-8.0); HEMATOCRIT 40.9 % (36-48); LYMPHOCYTES % (AUTO) 31.1 % (21.0-51.0); MEAN CORPUSCULAR HEMOGLOBIN 25.9 pg (27.0-33.0); MEAN CORPUSCULAR HGB CONC 31.8 g/dL (32.0-36.0); MEAN CORPUSCULAR VOLUME 81.6 fL (79-99); MONOCYTES % (AUTO) 6.6 % (3.0-13.0); NEUTROPHILS % (AUTO) 59.3 % (40.0-77.0); PLATELET COUNT (AUTO) 181 K/uL (130-400); RED BLOOD CELL COUNT(AUTO) 5.01 MIL/uL (4.00-5.50); WHITE BLOOD COUNT (AUTO) 8.5 K/uL (4.8-10.8)
[2021-12-07 16:51] LABS: B-TYPE NATRIURETIC PEPTIDE 15 pg/mL (0-100)
[2021-12-07 16:52] LABS: CREATININE 0.6 mg/dL (0.5-1.5)
[2021-12-07 17:01] LABS: ALBUMIN 3.5 g/dL (3.5-5.0); BILIRUBIN,TOTAL 0.3 mg/dL (0.2-1.0); TOTAL PROTEIN, SERUM 7.2 g/dL (6.0-8.3)
[2021-12-07] MEDS ORDERED: LORAZEPAM 1 MG TABLET PO ONE (18:00)
== END 2021-12-07 18:24 | disposition home or self-care (01) ==
LOC: EDH 15:40
DX: R07.89 Other chest pain (principal); E11.65 Type 2 diabetes mellitus with hyperglycemia; F41.9 Anxiety disorder, unspecified; I11.9 Hypertensive heart disease without heart failure; I25.10 Atherosclerotic heart disease of native coronary artery without angina pectoris; K21.9 Gastro-esophageal reflux disease without esophagitis; E66.9 Obesity, unspecified; Z79.82 Long term (current) use of aspirin; Z79.84 Long term (current) use of oral hypoglycemic drugs; Z79.899 Other long term (current) drug therapy; Z90.49 Acquired absence of other specified parts of digestive tract; Z68.41 Body mass index [BMI] 40.0-44.9, adult
CPT/HCPCS: 36415; 71045; 80053; 81001; 82550; 83880; 84484; 85025; 93005

== ENCOUNTER → 2022-01-23 | Outpatient (CLI) | payer MEDICAID | END | disposition home or self-care (01) | LOC: RAH 08:42 | PROVIDERS: ATTEND Internal Medicine Gastroenterology | DX: K76.0 Fatty (change of) liver, not elsewhere classified (principal); R10.11 Right upper quadrant pain | CPT/HCPCS: 76700 ==

== ENCOUNTER → 2022-02-19 | Outpatient (CLI) | payer MEDICAID ==
[~2022-02-19] VITALS: Ht 157.5 cm; Wt 112.5 kg
[~2022-02-19] MED LIST changes: +REGADENOSON 0.4 MG/5 ML PF SYG IVP SCH
== END | disposition home or self-care (01) ==
LOC: SHCH 08:14
PROVIDERS: ATTEND Internal Medicine Cardiovascular Disease
DX: I25.10 Atherosclerotic heart disease of native coronary artery without angina pectoris (principal); I49.3 Ventricular premature depolarization
CPT/HCPCS: 78452; 93017; 96374; A9500 ×2; J2785

== ENCOUNTER 2022-05-17 01:27 | Emergency (ER) | payer MEDICAID ==
[~2022-05-17] VITALS: Ht 160 cm; Wt 115.2 kg
[~2022-05-17 01:27] MED LIST changes: -REGADENOSON 0.4 MG/5 ML PF SYG IVP SCH
[2022-05-17 02:17] LABS: BASOPHILS % (AUTO) 0.4 % (0.0-5.0); EOSINOPHILS % (AUTO) 3.1 % (0.0-8.0); HEMATOCRIT 37.4 % (36-48); LYMPHOCYTES % (AUTO) 30.5 % (21.0-51.0); MEAN CORPUSCULAR HEMOGLOBIN 26.8 pg (27.0-33.0); MEAN CORPUSCULAR HGB CONC 33.2 g/dL (32.0-36.0); MEAN CORPUSCULAR VOLUME 80.8 fL (79-99); MONOCYTES % (AUTO) 7.6 % (3.0-13.0); PLATELET COUNT (AUTO) 173 K/uL (130-400); RED BLOOD CELL COUNT(AUTO) 4.63 MIL/uL (4.00-5.50); RED CELL DISTRIBUTION WIDTH 13.7 % (11.0-15.5); WHITE BLOOD COUNT (AUTO) 7.4 K/uL (4.8-10.8)
[2022-05-17 02:26] LABS: APPEARANCE,URINE CLEAR (CLEAR); BILIRUBIN,URINE NEGATIVE (NEGATIVE); COLOR,URINE LIGHT-YELLOW (YELLOW); GLUCOSE, URINE (UA) >=1000 mg/dL (NEGATIVE); KETONES,URINE 5 mg/dL (NEGATIVE); LEUKOCYTE ESTERASE ,URINE NEGATIVE Leu/uL (NEGATIVE); NITRATE,URINE NEGATIVE (NEGATIVE); OCCULT BLOOD,URINE NEGATIVE (NEGATIVE); PH,URINE 6.5 (5.0-8.0); PROTEIN,URINE NEGATIVE (NEGATIVE); UROBILINOGEN,URINE 0.2 mg/dL (0.2-1.0)
[2022-05-17 02:28] LABS: BACTERIA,URINE RARE /HPF (None Seen); SQUAMOUS EPITHELIAL CELL,UR MOD /HPF (0-2)
[2022-05-17 02:28] LABS: CREATININE 0.8 mg/dL (0.5-1.5)
[2022-05-17 02:33] LABS: ALBUMIN 3.5 g/dL (3.5-5.0); TOTAL PROTEIN, SERUM 6.6 g/dL (6.0-8.3)
[2022-05-17 02:38] LABS: B-TYPE NATRIURETIC PEPTIDE 17 pg/mL (0-100)
[2022-05-17] MEDS ORDERED: ALBUHFA IH (03:47)
[2022-05-17 03:53] VITALS: BP 150/80
== END 2022-05-17 04:01 | disposition home or self-care (01) ==
LOC: EDH 01:27
DX: R06.00 Dyspnea, unspecified (principal); E11.9 Type 2 diabetes mellitus without complications; E78.00 Pure hypercholesterolemia, unspecified; I10 Essential (primary) hypertension; G47.30 Sleep apnea, unspecified; Z79.899 Other long term (current) drug therapy; Z79.84 Long term (current) use of oral hypoglycemic drugs; Z79.82 Long term (current) use of aspirin; Z90.49 Acquired absence of other specified parts of digestive tract; Z98.890 Other specified postprocedural states
CPT/HCPCS: 99285; 71045; 87635; 84484; 80053; 83880; 85025; 87077; 87088; 87186; 87804 ×2; 81001; 36415; 93005; C9803

== ENCOUNTER 2022-05-30 23:50 | Emergency (ER) | payer MEDICAID ==
[~2022-05-30] VITALS: Ht 160 cm; Wt 113.4 kg
[~2022-05-30 23:50] MED LIST changes: +ALBUHFA IH
[2022-05-31 01:20] LABS: BASOPHILS % (AUTO) 0.3 % (0.0-5.0); EOSINOPHILS % (AUTO) 3.7 % (0.0-8.0); LYMPHOCYTES % (AUTO) 36.8 % (21.0-51.0); MEAN CORPUSCULAR VOLUME 81.8 fL (79-99); MONOCYTES % (AUTO) 7.8 % (3.0-13.0); NEUTROPHILS % (AUTO) 51.1 % (40.0-77.0); PLATELET COUNT (AUTO) 193 K/uL (130-400); RED BLOOD CELL COUNT(AUTO) 4.89 MIL/uL (4.00-5.50); WHITE BLOOD COUNT (AUTO) 7.3 K/uL (4.8-10.8)
[2022-05-31 01:24] LABS: APPEARANCE,URINE CLEAR (CLEAR); BILIRUBIN,URINE NEGATIVE (NEGATIVE); COLOR,URINE COLORLESS (YELLOW); GLUCOSE, URINE (UA) NEGATIVE (NEGATIVE); KETONES,URINE NEGATIVE (NEGATIVE); LEUKOCYTE ESTERASE ,URINE NEGATIVE Leu/uL (NEGATIVE); NITRATE,URINE NEGATIVE (NEGATIVE); OCCULT BLOOD,URINE NEGATIVE (NEGATIVE); PH,URINE 6.5 (5.0-8.0); PROTEIN,URINE NEGATIVE (NEGATIVE); UROBILINOGEN,URINE 0.2 mg/dL (0.2-1.0)
[2022-05-31] MEDS ORDERED: ONDANSETRON 4MG INJ IVP ONE (01:30)
[2022-05-31 01:32] LABS: CREATININE 0.7 mg/dL (0.5-1.5); POTASSIUM 3.6 mmol/L (3.5-5.1)
[2022-05-31 01:39] LABS: TOTAL PROTEIN, SERUM 7.8 g/dL (6.0-8.3)
[2022-05-31] MEDS ORDERED: ACETAMINOPHEN 325 MG TAB PO ONE (04:30)
[2022-05-31] MEDS ORDERED: DEXAMETHASONE SOD PHOSPHATE 4 MG/ML 1ML VIAL IV ONE (07:00)
[2022-05-31] MEDS ORDERED: MECLIZINE HCL 25 MG TABLET PO ONE (07:00)
[2022-05-31] MEDS ORDERED: MAGNESIUM 2GM PREMIX 50ML 50 ML IV SCH (08:00)
[2022-05-31] MEDS ORDERED: IOHEXOL 350 MG/ML 100ML INFUS..BTL IV ONE (08:45)
[2022-05-31] MEDS ORDERED: MECL-226 PO (13:01)
[2022-05-31 13:42] VITALS: BP 141/73
== END 2022-05-31 13:44 | disposition home or self-care (01) ==
LOC: EDH 23:50
DX: R42 Dizziness and giddiness (principal); E11.9 Type 2 diabetes mellitus without complications; K21.9 Gastro-esophageal reflux disease without esophagitis; I10 Essential (primary) hypertension; G47.30 Sleep apnea, unspecified; Z98.890 Other specified postprocedural states; Z79.899 Other long term (current) drug therapy; Z79.84 Long term (current) use of oral hypoglycemic drugs; Z79.82 Long term (current) use of aspirin
CPT/HCPCS: 99285; 82550; 83735; 84484; 80053; 83690; 85025; 81003; 36415; 70450; 74174; 96365; 71045; 96375; 96366; 71275; 93005; J1100; J3475; J2405; Q9967

== ENCOUNTER → 2022-06-16 | Outpatient (CLI) | payer MEDICAID ==
[~2022-06-16] MED LIST changes: +BIOT10006 PO; +DICY20TA3 PO; +FAMO40TA7 PO; +GLIP5TAB11 PO; +MECL-226 PO; +METO5TAB2 PO; +PYRI100T10 PO
== END | disposition home or self-care (01) ==
LOC: SHCH 14:46
PROVIDERS: ATTEND Internal Medicine Cardiovascular Disease
DX: R79.1 Abnormal coagulation profile (principal); R60.9 Edema, unspecified
CPT/HCPCS: 93970

== ENCOUNTER 2022-08-06 04:22 | Observation (INO) | payer MEDICAID ==
[2022-08-06] VITALS (22 sets, daily range): BP systolic 118–172; BP diastolic 55–90
[~2022-08-06] VITALS: Ht 160 cm; Wt 112.9 kg
[~2022-08-06 04:22] MED LIST changes: -BIOT10006 PO; -DICY20TA3 PO; -FAMO40TA7 PO; -GLIP5TAB11 PO; -METO5TAB2 PO; -PYRI100T10 PO
[2022-08-06 05:06] LABS: APPEARANCE,URINE CLEAR (CLEAR); BASOPHILS % (AUTO) 0.2 % (0.0-5.0); BILIRUBIN,URINE NEGATIVE (NEGATIVE); COLOR,URINE COLORLESS (YELLOW); EOSINOPHILS % (AUTO) 1.5 % (0.0-8.0); GLUCOSE, URINE (UA) NEGATIVE (NEGATIVE); HEMATOCRIT 41.8 % (36-48); KETONES,URINE NEGATIVE (NEGATIVE); LEUKOCYTE ESTERASE ,URINE NEGATIVE Leu/uL (NEGATIVE); MEAN CORPUSCULAR HEMOGLOBIN 26.4 pg (27.0-33.0); MEAN CORPUSCULAR HGB CONC 32.5 g/dL (32.0-36.0); MONOCYTES % (AUTO) 6.8 % (3.0-13.0); NEUTROPHILS % (AUTO) 68.9 % (40.0-77.0); NITRATE,URINE NEGATIVE (NEGATIVE); OCCULT BLOOD,URINE NEGATIVE (NEGATIVE); PLATELET COUNT (AUTO) 196 K/uL (130-400); PROTEIN,URINE NEGATIVE (NEGATIVE); RED BLOOD CELL COUNT(AUTO) 5.16 MIL/uL (4.00-5.50); RED CELL DISTRIBUTION WIDTH 13.5 % (11.0-15.5); UROBILINOGEN,URINE 0.2 mg/dL (0.2-1.0); WHITE BLOOD COUNT (AUTO) 10.5 K/uL (4.8-10.8)
[2022-08-06 05:22] LABS: CREATININE 0.6 mg/dL (0.5-1.5); POTASSIUM 4.1 mmol/L (3.5-5.1)
[2022-08-06 05:27] LABS: ALBUMIN 3.9 g/dL (3.5-5.0); TOTAL PROTEIN, SERUM 7.3 g/dL (6.0-8.3)
[2022-08-06] MEDS ORDERED: MORPHINE 4 MG SYG IVP ONE (05:30)
[2022-08-06] MEDS ORDERED: ONDANSETRON 4MG INJ IVP ONE (05:30)
[2022-08-06 05:32] LABS: B-TYPE NATRIURETIC PEPTIDE 15 pg/mL (0-100)
[2022-08-06] MEDS ORDERED: LIDOCAINE HCL-MPF 1% 2ML VIAL IV PRN (07:30)
[2022-08-06] MEDS ORDERED: ONDANSETRON 4MG INJ IVP PRN (07:30)
[2022-08-06] MEDS: INSULIN HUMULIN R 100 UNIT/ML 3ML SQ SCH ×4 (07:30→20:52)
[2022-08-06] MEDS ORDERED: LABETALOL 20MG VIAL IV PRN (07:30)
[2022-08-06] MEDS ORDERED: POTASSIUM CHLORIDE 10MEQ/100ML 100 ML IV PRN (07:30)
[2022-08-06] MEDS: LACTATED RINGERS 1000ML 1,000 ML IV SCH ×2 (07:54→21:24)
[2022-08-06] MEDS: MORPHINE 2 MG SYG IVP PRN ×2 (08:00→11:56)
[2022-08-06] MEDS: FAMOTIDINE 20MG VIAL IV SCH ×2 (09:30→21:24)
[2022-08-06] MEDS: ENOXAPARIN SODIUM 40 MG/0.4 ML SYRINGE SQ SCH (09:31)
[2022-08-06] MEDS: ZOSYN 3.375GM +NS 50ML IV SCH ×2 (11:00→19:32)
[2022-08-06] MEDS: HYDROMORPHONE 0.5 MG SYG (0.5MG/0.5ML) IVP PRN (13:55)
[2022-08-06] MEDS ORDERED: BUPIVACAINE/EPI/PF 0.25% 10ML VIAL IJ ONE ×2 (14:56→17:29)
[2022-08-06] MEDS ORDERED: BIOT10006 PO (15:46)
[2022-08-06] MEDS ORDERED: PYRI100T10 PO (15:46)
[2022-08-06] MEDS ORDERED: METO5TAB2 PO (15:46)
[2022-08-06] MEDS ORDERED: FAMO40TA7 PO (15:46)
[2022-08-06] MEDS ORDERED: GLIP5TAB11 PO (15:46)
[2022-08-06] MEDS ORDERED: DICY20TA3 PO (15:46)
[2022-08-06] MEDS ORDERED: PROPOFOL 10 MG/ML 20ML VIAL IV ONE (16:59)
[2022-08-06] MEDS ORDERED: MIDAZOLAM HCL 1 MG/ML 2ML VIAL ONE (16:59)
[2022-08-06] MEDS ORDERED: FENTANYL CITRATE PF 50 MCG/1 ML 2ML VIAL ONE (16:59)
[2022-08-06] MEDS ORDERED: ROCURONIUM 10MG/1ML SYR 10 MG/ML ML ONE (16:59)
[2022-08-06] MEDS ORDERED: SUCCINYLCHOLINE 200MG/10ML SYR ONE (16:59)
[2022-08-06] MEDS ORDERED: LIDOCAINE HCL 1% 20 ML VIAL MISC ONE (17:29)
[2022-08-06] MEDS ORDERED: ONDANSETRON 4MG INJ ONE (17:39)
[2022-08-06] MEDS ORDERED: GLYCOPYRROLATE 1 MG/5 ML SYRINGE ONE (17:40)
[2022-08-06] MEDS ORDERED: NEOSTIGMINE 5MG/5ML SYR IV ONE (17:40)
[2022-08-06] MEDS ORDERED: OXYCODONE/ACETAMIN 5/325MG TAB PO PRN (23:30)
[2022-08-07 00:07] VITALS: BP 155/76
[2022-08-07 00:25] VITALS: BP 164/95
[2022-08-07] MEDS: HYDROMORPHONE 0.5 MG SYG (0.5MG/0.5ML) IVP PRN ×3 (00:30→14:39)
[2022-08-07 00:52] VITALS: BP 150/81
[2022-08-07] MEDS: ZOSYN 3.375GM +NS 50ML IV SCH ×2 (02:36→11:20)
[2022-08-07 03:00] VITALS: BP 153/97
[2022-08-07 05:41] LABS: BASOPHILS % (AUTO) 0.2 % (0.0-5.0); EOSINOPHILS % (AUTO) 1.4 % (0.0-8.0); HEMATOCRIT 38.2 % (36-48); MEAN CORPUSCULAR HEMOGLOBIN 26.5 pg (27.0-33.0); MEAN CORPUSCULAR HGB CONC 31.9 g/dL (32.0-36.0); MEAN CORPUSCULAR VOLUME 82.9 fL (79-99); PLATELET COUNT (AUTO) 172 K/uL (130-400); RED BLOOD CELL COUNT(AUTO) 4.61 MIL/uL (4.00-5.50); RED CELL DISTRIBUTION WIDTH 14.2 % (11.0-15.5); WHITE BLOOD COUNT (AUTO) 8.3 K/uL (4.8-10.8)
[2022-08-07 05:53] LABS: ALBUMIN 3.1 g/dL (3.5-5.0); CREATININE 0.6 mg/dL (0.5-1.5); CRP QUANTITATIVE 41.7 mg/L (0.00-9.0); MAGNESIUM 1.5 mg/dL (1.80-2.40); TOTAL PROTEIN, SERUM 6.6 g/dL (6.0-8.3)
[2022-08-07] MEDS: INSULIN HUMULIN R 100 UNIT/ML 3ML SQ SCH ×2 (06:03→13:21)
[2022-08-07 07:29] VITALS: BP 161/92
[2022-08-07] MEDS ORDERED: MAGNESIUM 2GM PREMIX 50ML 50 ML IV SCH (07:30)
[2022-08-07] MEDS: FAMOTIDINE 20MG VIAL IV SCH (08:54)
[2022-08-07] MEDS: ENOXAPARIN SODIUM 40 MG/0.4 ML SYRINGE SQ SCH (08:55)
[2022-08-07 12:04] VITALS: BP 133/63
== END 2022-08-07 16:25 | disposition home or self-care (01) ==
LOC: EDH 04:22 → EDHIP 04:23 → INTOOBSV 04:23 → WSH 12:25
PROVIDERS: ADMIT Hospitalist; ATTEND Hospitalist
DX: K35.80 Unspecified acute appendicitis (principal); I10 Essential (primary) hypertension; E11.9 Type 2 diabetes mellitus without complications; E66.01 Morbid (severe) obesity due to excess calories; I25.10 Atherosclerotic heart disease of native coronary artery without angina pectoris; K35.30 Acute appendicitis with localized peritonitis, without perforation or gangrene; K38.1 Appendicular concretions; Z68.42 Body mass index [BMI] 45.0-49.9, adult; Z79.82 Long term (current) use of aspirin; Z86.73 Personal history of transient ischemic attack (TIA), and cerebral infarction without residual deficits; Z96.642 Presence of left artificial hip joint; Z96.653 Presence of artificial knee joint, bilateral; Z79.899 Other long term (current) drug therapy; Z98.890 Other specified postprocedural states
CPT/HCPCS: 44970; 96376 ×2; 96372 ×2; 96365; 96366 ×4; 96375; 99285; 84484; 80053 ×2; 83880; 85025 ×2; 82948 ×6; 81003; 36415 ×2; 71045; 74176; 93005; 96367; 83735; 86140; 73030; J7030; A4452; A4344; S0028 ×3; J3010; J0330; J3490 ×3; J2710; J2250; J2405 ×3; J2270; J2543 ×4; J1650 ×2; S0020 ×2; J1170 ×4; C1769 ×3; A4649 ×4; A4930; J7120; G0378 ×6; J3475; J1815; J2704

== ENCOUNTER 2022-08-24 20:08 | Emergency (ER) | payer MEDICAID ==
[~2022-08-24] VITALS: Ht 157.5 cm; Wt 111.6 kg
[~2022-08-24 20:08] MED LIST changes: -AMLO5TAB5 PO; +BIOT10006 PO; -CLIN-141 PO; +DICY20TA3 PO; -ERGO500014 PO; +FAMO40TA7 PO; +GLIP5TAB11 PO; -ISOS20TA85 PO; -LORA10TA7 PO; -MECL-226 PO; -METO-409 PO; +METO5TAB2 PO; +PYRI100T10 PO; -SUCR1ORA3 PO; -[UNRECOGNIZED DRUG - CODE] MM
[2022-08-24 20:58] LABS: APPEARANCE,URINE CLEAR (CLEAR); BILIRUBIN,URINE NEGATIVE (NEGATIVE); COLOR,URINE LIGHT-YELLOW (YELLOW); GLUCOSE, URINE (UA) NEGATIVE (NEGATIVE); KETONES,URINE NEGATIVE (NEGATIVE); LEUKOCYTE ESTERASE ,URINE NEGATIVE Leu/uL (NEGATIVE); NITRATE,URINE NEGATIVE (NEGATIVE); OCCULT BLOOD,URINE NEGATIVE (NEGATIVE); PH,URINE 6.5 (5.0-8.0); PROTEIN,URINE NEGATIVE (NEGATIVE); UROBILINOGEN,URINE 0.2 mg/dL (0.2-1.0)
[2022-08-24 21:03] LABS: BASOPHILS % (AUTO) 0.5 % (0.0-5.0); HEMATOCRIT 40.1 % (36-48); LYMPHOCYTES % (AUTO) 35.2 % (21.0-51.0); MEAN CORPUSCULAR HEMOGLOBIN 26.2 pg (27.0-33.0); MEAN CORPUSCULAR HGB CONC 32.7 g/dL (32.0-36.0); MEAN CORPUSCULAR VOLUME 80.2 fL (79-99); MONOCYTES % (AUTO) 7.8 % (3.0-13.0); NEUTROPHILS % (AUTO) 52.1 % (40.0-77.0); NUCLEATED RED BLOOD CELLS 0.3 % (0.0-0.19); PLATELET COUNT (AUTO) 216 K/uL (130-400); RED CELL DISTRIBUTION WIDTH 13.9 % (11.0-15.5); WHITE BLOOD COUNT (AUTO) 7.6 K/uL (4.8-10.8)
[2022-08-24 21:12] LABS: CREATININE 0.7 mg/dL (0.5-1.5); POTASSIUM 4.1 mmol/L (3.5-5.1)
[2022-08-24 21:20] LABS: ALBUMIN 3.7 g/dL (3.5-5.0); TOTAL PROTEIN, SERUM 7.5 g/dL (6.0-8.3)
[2022-08-24 21:45] LABS: B-TYPE NATRIURETIC PEPTIDE 48 pg/mL (0-100)
[2022-08-25] MEDS ORDERED: ACETAMINOPHEN 500 MG TABLET PO ONE (04:00)
[2022-08-25] MEDS ORDERED: GUAI120L62 PO (05:06)
[2022-08-25] MEDS ORDERED: BENZ200C53 PO (05:06)
[2022-08-25 05:10] VITALS: BP 159/80
== END 2022-08-25 05:25 | disposition home or self-care (01) ==
LOC: EDH 20:08
DX: B34.9 Viral infection, unspecified (principal); E11.9 Type 2 diabetes mellitus without complications; M19.90 Unspecified osteoarthritis, unspecified site; E78.00 Pure hypercholesterolemia, unspecified; I10 Essential (primary) hypertension; Z79.82 Long term (current) use of aspirin; Z79.84 Long term (current) use of oral hypoglycemic drugs; Z79.899 Other long term (current) drug therapy; Z90.49 Acquired absence of other specified parts of digestive tract; Z96.653 Presence of artificial knee joint, bilateral; Z20.822 Contact with and (suspected) exposure to COVID-19
CPT/HCPCS: 99285; 71045; 87635; 84484 ×2; 80053; 83880; 85025; 87804 ×2; 81003; 36415; 93005; C9803

== ENCOUNTER 2022-10-28 20:17 | Emergency (ER) | payer MEDICAID ==
[~2022-10-28] VITALS: Ht 160 cm; Wt 111.3 kg
[~2022-10-28 20:17] MED LIST changes: +BENZ200C53 PO; +GUAI120L62 PO
[2022-10-28 21:04] LABS: APPEARANCE,URINE CLEAR (CLEAR); BILIRUBIN,URINE NEGATIVE (NEGATIVE); COLOR,URINE YELLOW (YELLOW); GLUCOSE, URINE (UA) NEGATIVE (NEGATIVE); KETONES,URINE NEGATIVE (NEGATIVE); LEUKOCYTE ESTERASE ,URINE NEGATIVE Leu/uL (NEGATIVE); NITRATE,URINE NEGATIVE (NEGATIVE); OCCULT BLOOD,URINE NEGATIVE (NEGATIVE); PROTEIN,URINE NEGATIVE (NEGATIVE); UROBILINOGEN,URINE 0.2 mg/dL (0.2-1.0)
[2022-10-28 21:04] LABS: BASOPHILS % (AUTO) 0.2 % (0.0-5.0); EOSINOPHILS % (AUTO) 1.2 % (0.0-8.0); LYMPHOCYTES % (AUTO) 26.2 % (21.0-51.0); MEAN CORPUSCULAR HEMOGLOBIN 26.9 pg (27.0-33.0); MEAN CORPUSCULAR HGB CONC 32.4 g/dL (32.0-36.0); MONOCYTES % (AUTO) 6.3 % (3.0-13.0); NEUTROPHILS % (AUTO) 65.6 % (40.0-77.0); PLATELET COUNT (AUTO) 186 K/uL (130-400); RED BLOOD CELL COUNT(AUTO) 4.94 MIL/uL (4.00-5.50); RED CELL DISTRIBUTION WIDTH 14.1 % (11.0-15.5); WHITE BLOOD COUNT (AUTO) 8.5 K/uL (4.8-10.8)
[2022-10-28 21:21] LABS: CREATININE 0.7 mg/dL (0.5-1.5)
[2022-10-28 21:25] LABS: ALBUMIN 3.5 g/dL (3.5-5.0); TOTAL PROTEIN, SERUM 7.1 g/dL (6.0-8.3)
[2022-10-28] MEDS ORDERED: IOHEXOL 350 MG/ML 100ML INFUS..BTL IV ONE (21:37)
[2022-10-28 22:07] VITALS: BP 155/81
[2022-10-28] MEDS ORDERED: DOCU-116 PO (22:32)
[2022-10-28] MEDS ORDERED: IBUP-2071 PO (22:32)
[2022-10-28] MEDS ORDERED: TRAM50TA4 PO (22:32)
== END 2022-10-28 22:43 | disposition home or self-care (01) ==
LOC: EDH 20:17
DX: K42.9 Umbilical hernia without obstruction or gangrene (principal); I10 Essential (primary) hypertension; E78.00 Pure hypercholesterolemia, unspecified; E11.9 Type 2 diabetes mellitus without complications; Z79.82 Long term (current) use of aspirin; Z79.84 Long term (current) use of oral hypoglycemic drugs; Z79.899 Other long term (current) drug therapy; Z90.49 Acquired absence of other specified parts of digestive tract
CPT/HCPCS: 99285; 74177; 80053; 83690; 85025; 81003; 36415; Q9967

== ENCOUNTER 2023-03-10 17:48 | Emergency (ER) | payer MEDICAID ==
[~2023-03-10] VITALS: Ht 157.5 cm; Wt 113.4 kg
[~2023-03-10 17:48] MED LIST changes: +DOCU-116 PO; +IBUP-2071 PO; +TRAM50TA4 PO
[2023-03-10 17:50] VITALS: BP 154/84; PULSE 80; RESP 20
[2023-03-10 18:27] LABS: BASOPHILS % (AUTO) 0.4 % (0.0-5.0); EOSINOPHILS % (AUTO) 3.6 % (0.0-8.0); LYMPHOCYTES % (AUTO) 36.4 % (21.0-51.0); MEAN CORPUSCULAR HGB CONC 32.3 g/dL (32.0-36.0); MEAN CORPUSCULAR VOLUME 83.5 fL (79-99); MONOCYTES % (AUTO) 6.9 % (3.0-13.0); NEUTROPHILS % (AUTO) 52.3 % (40.0-77.0); PLATELET COUNT (AUTO) 204 K/uL (130-400); RED BLOOD CELL COUNT(AUTO) 4.67 MIL/uL (4.00-5.50); WHITE BLOOD COUNT (AUTO) 7.4 K/uL (4.8-10.8)
[2023-03-10 18:37] LABS: CREATININE 0.6 mg/dL (0.5-1.5)
[2023-03-10 18:43] LABS: ALBUMIN 3.2 g/dL (3.5-5.0); TOTAL PROTEIN, SERUM 6.8 g/dL (6.0-8.3)
[2023-03-10 18:49] LABS: B-TYPE NATRIURETIC PEPTIDE 83 pg/mL (0-100)
[2023-03-10] MEDS ORDERED: CYCL-309 PO (20:21)
[2023-03-10] MEDS ORDERED: IBUP-1493 PO (20:21)
[2023-03-10] MEDS ORDERED: CYCLOBENZAPRINE HCL 10 MG TABLET ONE (20:51)
[2023-03-10] MEDS ORDERED: CYCLOBENZAPRINE HCL 10 MG TABLET PO ONE (21:00)
== END 2023-03-10 21:01 | disposition home or self-care (01) ==
LOC: EDH 17:48
DX: M54.9 Dorsalgia, unspecified (principal); I10 Essential (primary) hypertension; E11.9 Type 2 diabetes mellitus without complications; E78.00 Pure hypercholesterolemia, unspecified; Z20.822 Contact with and (suspected) exposure to COVID-19; Z79.82 Long term (current) use of aspirin; Z79.84 Long term (current) use of oral hypoglycemic drugs; Z79.899 Other long term (current) drug therapy; Z98.890 Other specified postprocedural states
CPT/HCPCS: 99285; 71045; 87635; 80053; 83880; 85025; 87804 ×2; 36415; 93005; C9803

== ENCOUNTER → 2023-06-04 | Outpatient (CLI) | payer MEDICAID ==
[~2023-06-04] MED LIST changes: -BENZ200C53 PO; +CYCL-309 PO; -GLIP5TAB11 PO; +GLIP5TAB15 PO; -GUAI120L62 PO; +IBUP-1493 PO; -IBUP-2071 PO; -OXYB5TAB15 PO; +OXYB5TAB20 PO
[2023-06-04 16:22] LABS: CREATININE 0.7 mg/dL (0.5-1.5)
== END | disposition home or self-care (01) ==
LOC: LAB 15:39
PROVIDERS: ATTEND Internal Medicine Gastroenterology
DX: R10.30 Lower abdominal pain, unspecified (principal)
CPT/HCPCS: 36415; 82565; 84520

== ENCOUNTER 2023-06-13 23:12 | Emergency (ER) | payer MEDICAID ==
[~2023-06-13] VITALS: Ht 160 cm; Wt 110.7 kg
[2023-06-13 23:58] LABS: APPEARANCE,URINE CLEAR (CLEAR); BILIRUBIN,URINE NEGATIVE (NEGATIVE); COLOR,URINE COLORLESS (YELLOW); GLUCOSE, URINE (UA) NEGATIVE (NEGATIVE); KETONES,URINE NEGATIVE (NEGATIVE); LEUKOCYTE ESTERASE ,URINE NEGATIVE Leu/uL (NEGATIVE); NITRATE,URINE NEGATIVE (NEGATIVE); OCCULT BLOOD,URINE NEGATIVE (NEGATIVE); PH,URINE 6.5 (5.0-8.0); PROTEIN,URINE NEGATIVE (NEGATIVE); UROBILINOGEN,URINE 0.2 mg/dL (0.2-1.0)
[2023-06-13 23:59] LABS: ADD UA MICROSCOPIC NO
[2023-06-14] MEDS ORDERED: KETOROLAC 15MG/ML VIAL (15MG/ML) IV ONE
[2023-06-14] MEDS ORDERED: ONDANSETRON 4MG INJ IVP ONE
[2023-06-14 00:44] LABS: BASOPHILS # (AUTO) 0.02 K/uL (0.00-0.20); BASOPHILS % (AUTO) 0.3 % (0.0-5.0); EOSINOPHILS # (AUTO) 0.27 K/uL (0.00-0.70); EOSINOPHILS % (AUTO) 4.3 % (0.0-8.0); HEMATOCRIT 37.7 % (36-48); IMMATURE GRANULOCYTE ABSOLUTE 0.01 K/uL (0-1); LYMPHOCYTES # (AUTO) 2.6 K/uL (1.0-4.8); LYMPHOCYTES % (AUTO) 41.2 % (21.0-51.0); MEAN CORPUSCULAR HEMOGLOBIN 27.2 pg (27.0-33.0); MEAN CORPUSCULAR HGB CONC 32.6 g/dL (32.0-36.0); MEAN CORPUSCULAR VOLUME 83.4 fL (79-99); MONOCYTES # (AUTO) 0.5 K/uL (0.1-1.0); MONOCYTES % (AUTO) 8.4 % (3.0-13.0); NEUTROPHILS # (AUTO) 2.9 K/uL (1.8-7.7); NEUTROPHILS % (AUTO) 45.6 % (40.0-77.0); PLATELET COUNT (AUTO) 188 K/uL (130-400); RED BLOOD CELL COUNT(AUTO) 4.52 MIL/uL (4.00-5.50); RED CELL DISTRIBUTION WIDTH 13.8 % (11.0-15.5); WHITE BLOOD COUNT (AUTO) 6.3 K/uL (4.8-10.8)
[2023-06-14 00:57] LABS: CREATININE 0.7 mg/dL (0.5-1.5); POTASSIUM 3.7 mmol/L (3.5-5.1)
[2023-06-14 01:01] LABS: ALBUMIN 3.3 g/dL (3.5-5.0); BILIRUBIN,TOTAL 0.3 mg/dL (0.2-1.0); TOTAL PROTEIN, SERUM 6.8 g/dL (6.0-8.3)
[2023-06-14] MEDS ORDERED: IOHEXOL 350 MG/ML 100ML INFUS..BTL IV ONE (01:10)
[2023-06-14 02:26] VITALS: BP 146/76; PULSE 77; RESP 16; O2SAT 96
[2023-06-14] MEDS ORDERED: DICY20TA2 PO (02:27)
[2023-06-14] MEDS ORDERED: OMEP40CA21 PO (02:27)
== END 2023-06-14 02:56 | disposition home or self-care (01) ==
LOC: EDH 23:12
DX: R10.11 Right upper quadrant pain (principal); E11.9 Type 2 diabetes mellitus without complications; E78.00 Pure hypercholesterolemia, unspecified; I10 Essential (primary) hypertension; Z79.1 Long term (current) use of non-steroidal anti-inflammatories (NSAID); Z79.621 Long term (current) use of calcineurin inhibitor; Z79.82 Long term (current) use of aspirin; Z79.84 Long term (current) use of oral hypoglycemic drugs; Z79.899 Other long term (current) drug therapy; Z90.49 Acquired absence of other specified parts of digestive tract
CPT/HCPCS: 99285; 74177; 76705; 80053; 83690; 85025; 81003; 36415; 96374; 96375; J2405; J1885; Q9967

== ENCOUNTER → 2023-12-19 | Outpatient (CLI) | payer MEDICAID ==
[~2023-12-19] MED LIST changes: +DICY20TA2 PO; +OMEP40CA21 PO
== END | disposition home or self-care (01) ==
LOC: SHCH 14:21
PROVIDERS: ATTEND Internal Medicine Cardiovascular Disease
DX: I87.2 Venous insufficiency (chronic) (peripheral) (principal); I73.9 Peripheral vascular disease, unspecified
CPT/HCPCS: 93925; 93970

== ENCOUNTER 2024-04-28 23:36 | Emergency (ER) | payer MEDICAID ==
[~2024-04-28] VITALS: Ht 160 cm; Wt 103.0 kg
[~2024-04-28 23:36] MED LIST changes: -ALBUHFA IH; +APIX5TAB PO; -BIOT10006 PO; -CYCL-309 PO; -CYCL30DR OP; -DICY20TA2 PO; -DICY20TA3 PO; -DOCU-116 PO; -FAMO40TA7 PO; +FURO20TA6 PO; -GLIP5TAB15 PO; +HYDR12.54 PO; +HYDR25 PO; -IBUP-1493 PO; +LABE100T7 PO; -METF-444 PO; -METO5TAB2 PO; +MONT-39 PO; -OMEP40CA21 PO; -PANT40TA54 PO; -PYRI100T10 PO; +TELM80TA10 PO; +TIZA-194 PO; -TRAM50TA4 PO; +VIT-11 PO
[2024-04-29 00:32] LABS: CREATININE 0.7 mg/dL (0.5-1.0); MAGNESIUM 1.6 mg/dL (1.80-2.40); POTASSIUM 3.8 mmol/L (3.5-5.1)
[2024-04-29 00:37] LABS: BASOPHILS # (AUTO) 0.02 K/uL (0.00-0.20); BASOPHILS % (AUTO) 0.3 % (0.0-5.0); EOSINOPHILS # (AUTO) 0.26 K/uL (0.00-0.70); EOSINOPHILS % (AUTO) 3.9 % (0.0-8.0); IMMATURE GRANULOCYTE ABSOLUTE 0.02 K/uL (0-1); LYMPHOCYTES # (AUTO) 2.2 K/uL (1.0-4.8); LYMPHOCYTES % (AUTO) 32.9 % (21.0-51.0); MEAN CORPUSCULAR HEMOGLOBIN 27.6 pg (27.0-33.0); MEAN CORPUSCULAR HGB CONC 32.6 g/dL (32.0-36.0); MEAN CORPUSCULAR VOLUME 84.7 fL (79-99); MONOCYTES # (AUTO) 0.6 K/uL (0.1-1.0); MONOCYTES % (AUTO) 8.4 % (3.0-13.0); NEUTROPHILS # (AUTO) 3.6 K/uL (1.8-7.7); NEUTROPHILS % (AUTO) 54.2 % (40.0-77.0); PLATELET COUNT (AUTO) 215 K/uL (130-400); RED BLOOD CELL COUNT(AUTO) 3.66 MIL/uL (4.00-5.50); RED CELL DISTRIBUTION WIDTH 14.5 % (11.0-15.5); WHITE BLOOD COUNT (AUTO) 6.7 K/uL (4.8-10.8)
[2024-04-29] MEDS: dexaMETHasone SOD PHOSPHATE 4 MG/ML 1ML VIAL IVP ONE (01:24)
[2024-04-29] MEDS: ketOROlac 15MG/ML VIAL (15MG/ML) IV ONE (01:24)
[2024-04-29] MEDS: ORPHENADRINE 60MG/2ML IVP ONE (01:25)
[2024-04-29] MEDS ORDERED: BACL10TA PO (02:50)
[2024-04-29 03:29] VITALS: BP 160/64; PULSE 82; RESP 18; TEMP 98.4; O2SAT 96
== END 2024-04-29 03:31 | disposition home or self-care (01) ==
LOC: EDH 23:36
DX: M54.89 Other dorsalgia (principal); M54.2 Cervicalgia; I10 Essential (primary) hypertension; E11.9 Type 2 diabetes mellitus without complications; M19.90 Unspecified osteoarthritis, unspecified site; I48.91 Unspecified atrial fibrillation; M79.7 Fibromyalgia; Z79.82 Long term (current) use of aspirin; Z79.84 Long term (current) use of oral hypoglycemic drugs; Z79.899 Other long term (current) drug therapy; Z90.49 Acquired absence of other specified parts of digestive tract; Z98.890 Other specified postprocedural states
CPT/HCPCS: 99285; 83735; 80048; 85025; 36415; 96374; 70450; 96375; J1100; J1885; J2360

== ENCOUNTER 2024-05-20 21:44 | Emergency (ER) | payer MEDICAID ==
[~2024-05-20] VITALS: Ht 160 cm; Wt 104.3 kg
[~2024-05-20 21:44] MED LIST changes: +BACL10TA PO
[2024-05-20 22:25] LABS: APPEARANCE,URINE CLEAR (CLEAR); BILIRUBIN,URINE NEGATIVE (NEGATIVE); COLOR,URINE LIGHT-YELLOW (YELLOW); GLUCOSE, URINE (UA) NEGATIVE (NEGATIVE); KETONES,URINE NEGATIVE (NEGATIVE); LEUKOCYTE ESTERASE ,URINE 25 Leu/uL (NEGATIVE); NITRATE,URINE NEGATIVE (NEGATIVE); OCCULT BLOOD,URINE NEGATIVE (NEGATIVE); PROTEIN,URINE NEGATIVE (NEGATIVE); UROBILINOGEN,URINE 0.2 mg/dL (0.2-1.0)
[2024-05-20 22:30] LABS: ADD UA MICROSCOPIC YES
[2024-05-20 22:33] LABS: BASOPHILS # (AUTO) 0.03 K/uL (0.00-0.20); BASOPHILS % (AUTO) 0.5 % (0.0-5.0); EOSINOPHILS # (AUTO) 0.18 K/uL (0.00-0.70); EOSINOPHILS % (AUTO) 2.8 % (0.0-8.0); HEMATOCRIT 33.5 % (36-48); IMMATURE GRANULOCYTE ABSOLUTE 0.03 K/uL (0-1); LYMPHOCYTES # (AUTO) 2.1 K/uL (1.0-4.8); LYMPHOCYTES % (AUTO) 33.1 % (21.0-51.0); MEAN CORPUSCULAR HGB CONC 32.5 g/dL (32.0-36.0); MEAN CORPUSCULAR VOLUME 86.1 fL (79-99); MONOCYTES # (AUTO) 0.6 K/uL (0.1-1.0); MONOCYTES % (AUTO) 9.2 % (3.0-13.0); NEUTROPHILS # (AUTO) 3.4 K/uL (1.8-7.7); NEUTROPHILS % (AUTO) 53.9 % (40.0-77.0); PLATELET COUNT (AUTO) 215 K/uL (130-400); RED BLOOD CELL COUNT(AUTO) 3.89 MIL/uL (4.00-5.50); RED CELL DISTRIBUTION WIDTH 13.9 % (11.0-15.5); WHITE BLOOD COUNT (AUTO) 6.4 K/uL (4.8-10.8)
[2024-05-20 22:35] LABS: BACTERIA,URINE FEW /HPF (None Seen); MUCUS,URINE RARE LPF (None Seen); SQUAMOUS EPITHELIAL CELL,UR FEW /HPF (0-2)
[2024-05-20 22:48] LABS: CREATININE 0.8 mg/dL (0.5-1.0)
[2024-05-20 22:52] LABS: ALBUMIN 3.5 g/dL (3.5-5.0); BILIRUBIN,TOTAL 0.4 mg/dL (0.2-1.0); TOTAL PROTEIN, SERUM 7.1 g/dL (6.0-8.3)
[2024-05-20] MEDS ORDERED: GABA-529 PO (23:23)
[2024-05-20] MEDS ORDERED: CEPH500B PO (23:24)
[2024-05-20] MEDS: LACTATED RINGERS 1000ML 1,000 ML IV ONE (23:35)
[2024-05-20] MEDS: GABApentin 100 MG CAPSULE PO STA (23:39)
[2024-05-20 23:43] VITALS: BP 167/92; PULSE 85; RESP 16; TEMP 98.6; O2SAT 96
== END 2024-05-20 23:46 | disposition home or self-care (01) ==
LOC: EDH 21:44
DX: N39.0 Urinary tract infection, site not specified (principal); M19.90 Unspecified osteoarthritis, unspecified site; E11.9 Type 2 diabetes mellitus without complications; I10 Essential (primary) hypertension; I48.91 Unspecified atrial fibrillation; Z79.01 Long term (current) use of anticoagulants; Z79.82 Long term (current) use of aspirin; Z79.899 Other long term (current) drug therapy; Z98.890 Other specified postprocedural states
CPT/HCPCS: 36415; 80053; 81001; 82550; 83690; 84484; 85025; 87086; 87186; 93005

== ENCOUNTER 2024-06-14 23:41 | Emergency (ER) | payer MEDICAID ==
[~2024-06-14] VITALS: Ht 160 cm; Wt 98.9 kg
[~2024-06-14 23:41] MED LIST changes: +CEPH500B PO; +GABA-529 PO
[2024-06-14 23:43] VITALS: TEMP 97.9
--- NOTE | 2024-06-14 23:48 | NUR ---
UA CUP PROVIDED
[2024-06-15 00:14] LABS: APPEARANCE,URINE CLEAR (CLEAR); BILIRUBIN,URINE NEGATIVE (NEGATIVE); COLOR,URINE LIGHT-YELLOW (YELLOW); GLUCOSE, URINE (UA) NEGATIVE (NEGATIVE); KETONES,URINE NEGATIVE (NEGATIVE); LEUKOCYTE ESTERASE ,URINE NEGATIVE Leu/uL (NEGATIVE); NITRATE,URINE NEGATIVE (NEGATIVE); OCCULT BLOOD,URINE NEGATIVE (NEGATIVE); PH,URINE 6.5 (5.0-8.0); PROTEIN,URINE NEGATIVE (NEGATIVE); UROBILINOGEN,URINE 0.2 mg/dL (0.2-1.0)
[2024-06-15 00:21] LABS: ADD UA MICROSCOPIC NO
--- NOTE | 2024-06-15 00:26 | ERN ---
ED Note History of Present Illness Stated Complaint: GBW, ABD PAIN Chief Complaint: Abdominal Pain Time Seen by MD: 00:18 Dictation: Patient is 63 years old female with came to the emergency department with a complaint of abdominal pain, nausea, that started on 06/11/2024. She had similar presentations in January at which time she initially presented to [facility] where she was discharged in from the ER as gastritis and constipation. Subsequently she came to [facility] and a CT scan of the abdomen and pelvis revealed a small bowel obstruction and she was admitted to the hospital. February 19, 2024 she underwent surgery and ventral hernia repair with a mesh placement. She has a had off and on abdominal symptoms since then but current episode started a few days ago the pain is diffuse throughout the abdomen and she feels extremely bloated and gassy. She also feels pressure in the hypogastric area. Denied fever chills, dysuria hematuria. She was concerned with a extensive history and hence came into the ER for re-evaluation. Temperature 97.9 pulse 76 respirations 16 blood pressure 148/70 with a pulse oximetry of 98% on room air Her chronic medical problems include obstructive sleep apnea, Coronary Artery Disease, hyperlipidemia, hypertension, diabetes, anxiety, atrial fibrillation, osteoarthritis, small bowel obstruction status post mesh repair in February 13, 2024 Allergies: Coded Allergies: No Known Drug Allergies (Unverified Allergy, 12/27/11) Home Meds Active Scripts Cephalexin Monohydrate (Keflex) 500 Mg Cap, 500 MG PO BID for 5 Days, #10 CAP Prov:SHANDA COSME MD 05/20/24 Gabapentin (Gabapentin) 100 Mg Capsule, 100 MG PO BID PRN for PAIN LEVEL 6 TO 10 for 4 Days, #8 CAP Prov:SHANDA COSME MD 05/20/24 Baclofen (Baclofen) 10 Mg Tablet, 10 MG PO BID for 5 Days, #10 TAB Prov:CHINA DUTTA 04/29/24 Hydralazine HCl (Apresoline) 25 Mg Tab, 25 MG PO BID, #60 TAB Prov:MERRITT FLORES MD 03/04/24 Furosemide (Lasix 20Mg Tab) 20 Mg Tablet, 20 MG PO DAILY, #30 TAB Prov:MERRITT FLORES MD 03/04/24 Apixaban (Eliquis) 5 Mg Tablet, 5 MG PO BID, #60 TAB Prov:MERRITT FLORES MD 03/04/24 Reported Medications Vit A/C/E AC/Znox/Cupric Oxide (Eyeprotect Tablet) 7,160-113 Tablet, 1 EACH PO DAILY, TAB 02/19/24 Montelukast Sodium (Montelukast Sodium) 10 Mg Tablet, 10 MG PO DAILY, TAB 02/19/24 Tizanidine HCl (Tizanidine HCl) 2 Mg Tablet, 2 MG PO HSPRN PRN for MUSCLE SPASMS, TAB 02/19/24 Labetalol HCl (Labetalol HCl) 100 Mg Tablet, 100 MG PO DAILY, TAB 02/19/24 Hydrochlorothiazide (Hydrochlorothiazide) 12.5 Mg Tablet, 12.5 MG PO DAILY, TAB 02/19/24 Telmisartan (Telmisartan) 80 Mg Tablet, 80 MG PO DAILY, TAB 02/19/24 Aspirin (ASPIRIN 81 MG ECTAB) 81 Mg Ectab, 81 MG PO DAILY, TAB.EC 09/21/18 Oxybutynin Chloride (Oxybutynin Chloride) 5 Mg Tablet, 10 MG PO DAILY, TAB 09/21/18 Atorvastatin Calcium (Atorvastatin Calcium) 40 Mg Tablet, 40 MG PO DAILY, TAB 01/28/18 Past Medical History Past Medical History: A-Fib, Arthritis, Diabetes-Type I, Diabetes-Type II, Hypertension Additional Past Medical Hx: UMBILICAL HERNIA, SEPSIS Surgical History: Appendectomy, Cholecystectomy, Other Surgical History Other: HERNIA, LEFT HIP, BILATERAL FEET, BILATERAL KNEE, Family History: CAD, DM, HTN Social History: Negative, Lives with family, Other History: Not Applicable RN Note Reviewed/Agreed w/PFSH: Yes Review of System Dictation Constitutional: Negative for fever,chills, and weight loss Eyes: Negative for injury, pain,redness, and discharge ENT: Negative for injury,pain or swelling Cardiovascular: Negative for chest pain, palpitations, and edema Respiratory: Negative for shortness of breath, cough, and wheezing, Abdomen/GI: Positive for abdominal pain, nausea, but denied vomiting, diarrhea, and constipation Back: Negative for injury and pain : Negative for injury, bleeding and discharge MS/Extremity: Negative for injury and deformity Skin: Negative for rash, and discoloration Neuro: Negative for headache, weakness, numbness, tingling, and seizure Psych: Negative for suicide ideation, homicidal ideation, and hallucinations Initial Vital Sign VS Vital Signs Date Time Temp Pulse Resp B/P (MAP) Pulse Ox O2 Delivery O2 Flow Rate FiO2 06/14/24 23:43 97.9 76 16 148/70 98 Room Air 06/15/24 01:48 0 21 Physical Exam Dictation General: awake, alert, NAD Head/Face: Normocephalic, atraumatic Eyes: PERRL, EOMI, vision at baseline ENT: oral cavity clear, TMs clear, no signs of infection Neck: Trachea midline, supple, no nuchal rigidity Cardiovascular: RRR, normal S1/S2, No MRGs, no JVD Respiratory: CTAB, no respiratory distress, No rales or wheezes Abdomen: Soft, very-distended, diffusely tender to palpation, no guarding or marvin ound. Skin: Warm, dry, normal turgor, no rash MS/Extremity: Pulses equal, no cyanosis, neurovascular intact, FROM Neuro: COAx4, GCS 15, strength 5/5, CN 2-12 intact, normal cerebellar exam, normal gait, Psych: Normal behavior, mood, and affect normal Extremities-trace edema without any palpable cords, Homans sign is negative Results (Laboratory/Radiology) Laboratory/Radiology Laboratory Tests Test 06/15/24 00:01 06/15/24 00:14 Urine Color LIGHT-YELLOW (YELLOW) Urine Appearance CLEAR (CLEAR) Urine pH 6.5 (5.0-8.0) Urine Specific [place] 1.015 (1.001-1.031) Urine Protein NEGATIVE mg/dL (NEGATIVE) Urine Glucose (UA) NEGATIVE mg/dL (NEGATIVE) Urine Ketones NEGATIVE mg/dL (NEGATIVE) Urine Occult Blood NEGATIVE (NEGATIVE) Urine Nitrate NEGATIVE (NEGATIVE) Urine Bilirubin NEGATIVE mg/dL (NEGATIVE) Urine Urobilinogen 0.2 mg/dL (0.2-1.0) Urine Leukocyte Esterase NEGATIVE [place]/uL White Blood Count 8.9 K/uL (4.8-10.8) Red Blood Count 3.90 MIL/uL (4.00-5.50) L Hemoglobin 10.8 g/dL (12.0-16.0) L Hematocrit 33.1 % (36-48) L Mean Corpuscular Volume 84.9 fL (79-99) Mean Corpuscular Hemoglobin 27.7 pg (27.0-33.0) Mean Corpuscular Hemoglobin Concent 32.6 g/dL (32.0-36.0) Red Cell Distribution Width 14.0 % (11.0-15.5) Platelet Count 230 K/uL (130-400) Mean Platelet Volume 10.6 fL (7.5-10.5) H Immature Granulocyte % (Auto) 0.4 % (0-1) Neutrophils (%) (Auto) 56.3 % (40.0-77.0) Lymphocytes (%) (Auto) 32.4 % (21.0-51.0) Monocytes (%) (Auto) 7.9 % (3.0-13.0) Eosinophils (%) (Auto) 2.7 % (0.0-8.0) Basophils (%) (Auto) 0.3 % (0.0-5.0) Neutrophils # (Auto) 5.0 K/uL (1.8-7.7) Lymphocytes # (Auto) 2.9 K/uL (1.0-4.8) Monocytes # (Auto) 0.7 K/uL (0.1-1.0) Eosinophils # (Auto) 0.24 K/uL (0.00-0.70) Basophils # (Auto) 0.03 K/uL (0.00-0.20) Absolute Immature Granulocyte (auto 0.04 K/uL (0-1) Nucleated Red Blood Cells 0.0 % (0.0-0.19) Sodium Level 134 mmol/L (136-145) L Potassium Level 4.1 mmol/L (3.5-5.1) Chloride Level 103 mmol/L (101-111) Carbon Dioxide Level 27 mmol/L (21-32) Blood Urea Nitrogen 21 mg/dL (7-18) H Creatinine 0.7 mg/dL (0.5-1.0) Glomerular Filtration Rate Calc 97 mL/min (>90) Random Glucose 113 mg/dL (70-105) H Lactic Acid Level 1.3 mmol/L (0.8-2.5) Total Calcium 8.9 mg/dL (8.5-10.1) Magnesium Level 1.80 mg/dL (1.80-2.40) Troponin I High Sensitivity 6 ng/L (4-50) Labs Reviewed?: Yes X-RAY Comment: PATIENT: KIM SOTELO MR#: [id number] : 1960 SEX: F AGE: 63 LOCATION: [facility] ORDER 45 STATUS: REG ER REPORT#: [id number] SERVICE 44 REASON: ABD PAIN, GBW ORDERING PHYSICIAN: JORGE WHALEN MD PROCEDURE: CXR1VW - CHEST 1VW CHEST 1VW HISTORY: Abdominal pain COMPARISON: 02/28/2024 FINDINGS: A frontal projection of the chest was obtained. No acute pulmonary infiltrates is seen. The heart is enlarged. Degenerative changes are seen. Prominent interstitial markings are seen. No evidence of aortic calcification is seen. IMPRESSION: 1. No acute pulmonary infiltrate is seen. DICTATED BY: LINUS ANNE MD DATE: 06/15/2436 ELECTRONICALLY SIGNED BY: LINUS ANNE MD DATE: 06/15/[address] Scan Comment: PATIENT: KIM SOTELO MR#: [id number] : 1960 SEX: F AGE: 63 LOCATION: ED ORDER 002 STATUS: REG ER REPORT#: [id number] SERVICE 002 REASON: h/o SBO in january 2024. abdominal pain and nausea ORDERING PHYSICIAN: JORGE WHALEN MD PROCEDURE: ABD PEL W - CT ABDOMEN/PELVIS W/CONTRAST CT ABDOMEN/PELVIS W/CONTRAST HISTORY: Small bowel obstruction, abdominal pain COMPARISON: None TECHNIQUE: Multiple sequential axial images of the abdomen and pelvis were obtained from the dome of the diaphragm through symphysis pubis. Patient was given 75 cc of Omnipaque through intravenous route. Oral contrast was not given. FINDINGS: No pleural effusion is seen bilaterally. There is no evidence of parenchymal disease or pulmonary nodule of the visualized lower lungs. Degenerative changes of the thoracolumbar spine are present. The heart is not enlarged. Liver measures 16 cm. Postcholecystectomy changes are seen. Mild small bowel dilatation is seen may be related to enteritis. Transitional point cannot be determined from this study. Clinical correlation is recommended. The liver, spleen, adrenal glands and pancreas are unremarkable. There is no evidence of hydronephrosis bilaterally. 2 mm left renal pelvic stone is seen.. Fecal material is seen in the colon. There are normal size retroperitoneal and mesenteric lymph nodes. No ascites is seen. Atherosclerotic changes are present. Pelvic sidewalls are symmetric bilaterally. There is left hip prosthesis. Bladder is well distended without wall thickening. IMPRESSION: 1. No hydronephrosis is seen. 2 mm left renal pelvic stone is seen. Mild small bowel dilatation is seen may be related to enteritis. Transitional point cannot be determined from this study. Clinical correlation is recommended. CT was performed with one or more following dose reduction techniques: automated exposure control, adjustment of the mA and kv according to patient's size, or use of a iterative reconstruction technique. DICTATED BY: LINUS ANNE MD DATE: 06/15/24139 ELECTRONICALLY SIGNED BY: LINUS ANNE MD DATE: 06/15/24148 PATIENT: KMI SOTELO MR#: [id number] : 1960 SEX: F AGE: 63 LOCATION: [facility] ORDER 47 STATUS: [facility] REPORT#: [id number] SERVICE 45 REASON: Abdominal Pain ORDERING PHYSICIAN: MARTHA PAREDES PROCEDURE: ABD PEL W - CT ABDOMEN/PELVIS W/CONTRAST CT ABDOMEN/PELVIS W/CONTRAST CLINICAL HISTORY: Abdominal Pain COMPARISON: 06/14/2023 TECHNIQUE: Sequential axial images of abdomen and pelvis with 100 mL of Omnipaque 350 IV contrast with sagittal and coronal reconstructions. CT was performed with one or more of the following dose reduction techniques: automated exposure control, adjustment of the mA and/or kV according to patient size, or use of iterative reconstruction technique. FINDINGS: There is mild dependent atelectasis lung bases. The liver and spleen are unremarkable. The gallbladder is surgically absent. The pancreas and adrenal glands are unremarkable. There are bilateral renal parapelvic cysts. The bladder is unremarkable. There are multiple dilated fluid-filled loops of small bowel with air-fluid levels as well as fecal content in loops of small bowel which are contained within the umbilicus hernia which is the source of obstruction. The bowel is decompressed beyond this point. The uterus is unremarkable. The bony structures demonstrate change in left hip arthroplasty. IMPRESSION: Small bowel obstruction secondary to loops of bowel contained within the umbilicus hernia. DICTATED BY: SHANDA WEBB DO DATE: 02/18/242199 ELECTRONICALLY SIGNED BY: SHANDA WEBB DO DATE: 02/18/242204 ED Course ED Course Orders Procedure Category Date Status Time Urinalysis Profile LAB 06/14/24 Complete 23:45 Cbc With Differential LAB 06/14/24 Complete 23:45 Basic Metabolic Panel LAB 06/14/24 Complete 23:45 Troponin I High LAB 06/14/24 Complete Sensitivity 23:45 Chest 1vw RAD 06/14/24 Resulted 23:45 12 Lead Ekg Tracing- EKG 06/14/24 Logged Technical 23:45 Magnesium LAB 06/14/24 Complete 23:45 Lactic Acid LAB 06/14/24 Complete 23:48 Ct Abdomen/Pelvis CT 06/15/24 Resulted W/Contrast 00:25 Iohexol (Omnipaque) PHA 06/15/24 Complete 00:48 Current Medications Medications (Trade) Dose Ordered Sig/Angelic Route PRN Reason Start Time Stop Time Status Last Admin Dose Admin Iohexol (Omnipaque) 75 ml STK-MED ONCE IV 06/15/24 00:48 06/15/24 00:48 DC Vital Signs Date Time Temp Pulse Resp B/P (MAP) Pulse Ox O2 Delivery O2 Flow Rate FiO2 06/15/24 02:16 67 18 112/44 97 Room Air* 0 06/15/24 01:48 69 18 145/60 96 Room Air* 0 21 06/14/24 23:43 97.9 76 16 148/70 98 Room Air We will perform diagnostic labs, advanced imaging and administer medications according to the patient's complaint. Once the results are available, will review and personally interpreted the labs to rule out any acute life- threatening emergency the trach require immediate intervention and treatment. I will then re-evaluate the patient after treatment and diagnostic exams have return to determine whether the patient requires any further testing, can safely be discharged home or need further admission to hospital for additional treatment and evaluation. 12:39 a.m. urinalysis is negative lactic acid is 1.3 CBC BNP is pending. We will pursue CT scan of the abdomen and pelvis to evaluate for any recurrent SBO. 12:50 a.m. CBC showed a hemoglobin of 10.8 white count of 8.9 BNP 7 showed a sodium of 134 BUN and creatinine are 21 and 0.7, troponins negative, magnesium 1.8 CT scan of the abdomen and pelvis is pending. Chest x-ray is unremarkable for any acute infiltrate Medical Decision Making MDM MDM: Differential diagnosis: Gastroenteritis, constipation, recurrent small-bowel obstruction, colitis diverticulitis, gastritis Rationale: Tests considered and ordered secondary to shared decision making include: Previous outside records reviewed: Old ER visits. Risk of complication and/or morbidity or mortality of patient management: None Medications-Per medication reconciliation Need for hospitalization: Patient does not meet criteria for hospitalization. Need for emergency major/minor surgery: No There are no social concerns with this patient. Prescription drug management Prescriptions will include symptomatic care Patient's prior external medical records from other ER visits were reviewed by me as indicated. Prior testing and results from previous visits were reviewed. Prior tests were taken into account with medical decision making and resource utilization, independent historian/historians were used to obtain complete medical history. I independently interpreted the test that were performed, results were reviewed by me and considered findings on radiology if ordered. Medical management and examination interpretation discussions were had by me with other qualified healthcare professionals as indicated for the patient's care. Problem List Problem List: (1) Constipation (2) Diffuse abdominal pain (3) Renal colic on left side (4) Nephrolithiasis (5) Morbid obesity (6) Hypertension (7) Hyperlipidemia (8) Obstructive sleep apnea (9) Non-insulin dependent type 2 diabetes mellitus (10) Anxiety DX & DISP Disposition: Discharge Departure Impression: Primary Impression: Diffuse abdominal pain Additional Impressions: Constipation, Renal colic on left side, Nephrolithiasis, Hyperlipidemia, Hypertension, Non-insulin dependent type 2 diabetes mellitus, Morbid obesity, Anxiety Condition: Stable Scripts Lactulose (Lactulose) 20 Gram/30 Ml Solution 30 ML PO DAILY for constipation for 30 Days, #900 ML 0 Refills Prov: JORGE WHALEN MD 06/15/24 Additional Instructions: Patient and the caregiver have been informed of all the diagnostic tests and the imaging conducted during the today's visit to the emergency room and has verba lized understanding of the results I have personally reviewed and interpreted all diagnostic exams performed here in the ER today as well as the vital signs documented by the nursing staff. The patient is now being discharged to home and should follow up with the primary care physician or the specialist as directed by the ER staff. Follow-up with primary care provider in 1 to 2 days. Take medications as directed here in the emergency room. Okay to continue home medications unless otherwise discussed during your visit in the emergency room today. Return to your nearest emergency room if symptoms worsen or if there is no improvement. Call 911 if you need immediate assistance. Take Tylenol or Motrin [id number] as needed and if no contraindications are present. Increase oral hydration. A wound culture or urine culture was ordered here in the emergency room department please follow-up with primary care provider and advise them to get repeat ports from our facility. If you had any Chung wrap/splints t hat were applied here, please do not remove them until you see your primary care or specialty. Referrals: NIMESH ALVAREZ NP (PCP) JORGE WHALEN MD Jun 15, 2024 00:26
[2024-06-15 00:32] LABS: CREATININE 0.7 mg/dL (0.5-1.0); MAGNESIUM 1.8 mg/dL (1.80-2.40); POTASSIUM 4.1 mmol/L (3.5-5.1)
--- NOTE | 2024-06-15 00:40 | HMCIMG ---
CHEST 1VW HISTORY: Abdominal pain COMPARISON: 02/28/2024 FINDINGS: A frontal projection of the chest was obtained. No acute pulmonary infiltrates is seen. The heart is enlarged. Degenerative changes are seen. Prominent interstitial markings are seen. No evidence of aortic calcification is seen. IMPRESSION: 1. No acute pulmonary infiltrate is seen.
[2024-06-15 00:47] LABS: BASOPHILS # (AUTO) 0.03 K/uL (0.00-0.20); BASOPHILS % (AUTO) 0.3 % (0.0-5.0); EOSINOPHILS # (AUTO) 0.24 K/uL (0.00-0.70); EOSINOPHILS % (AUTO) 2.7 % (0.0-8.0); HEMATOCRIT 33.1 % (36-48); IMMATURE GRANULOCYTE ABSOLUTE 0.04 K/uL (0-1); LYMPHOCYTES # (AUTO) 2.9 K/uL (1.0-4.8); LYMPHOCYTES % (AUTO) 32.4 % (21.0-51.0); MEAN CORPUSCULAR HEMOGLOBIN 27.7 pg (27.0-33.0); MEAN CORPUSCULAR HGB CONC 32.6 g/dL (32.0-36.0); MEAN CORPUSCULAR VOLUME 84.9 fL (79-99); MONOCYTES # (AUTO) 0.7 K/uL (0.1-1.0); MONOCYTES % (AUTO) 7.9 % (3.0-13.0); NEUTROPHILS % (AUTO) 56.3 % (40.0-77.0); PLATELET COUNT (AUTO) 230 K/uL (130-400); WHITE BLOOD COUNT (AUTO) 8.9 K/uL (4.8-10.8)
[2024-06-15] MEDS ORDERED: IOHEXOL-350 75 ML VIAL IV ONE (00:48)
--- NOTE | 2024-06-15 01:03 | NUR ---
PATIENT TO CT SCAN.
--- NOTE | 2024-06-15 01:49 | HMCIMG ---
CT ABDOMEN/PELVIS W/CONTRAST HISTORY: Small bowel obstruction, abdominal pain COMPARISON: None TECHNIQUE: Multiple sequential axial images of the abdomen and pelvis were obtained from the dome of the diaphragm through symphysis pubis. Patient was given 75 cc of Omnipaque through intravenous route. Oral contrast was not given. FINDINGS: No pleural effusion is seen bilaterally. There is no evidence of parenchymal disease or pulmonary nodule of the visualized lower lungs. Degenerative changes of the thoracolumbar spine are present. The heart is not enlarged. Liver measures 16 cm. Postcholecystectomy changes are seen. Mild small bowel dilatation is seen may be related to enteritis. Transitional point cannot be determined from this study. Clinical correlation is recommended. The liver, spleen, adrenal glands and pancreas are unremarkable. There is no evidence of hydronephrosis bilaterally. 2 mm left renal pelvic stone is seen.. Fecal material is seen in the colon. There are normal size retroperitoneal and mesenteric lymph nodes. No ascites is seen. Atherosclerotic changes are present. Pelvic sidewalls are symmetric bilaterally. There is left hip prosthesis. Bladder is well distended without wall thickening. IMPRESSION: 1. No hydronephrosis is seen. 2 mm left renal pelvic stone is seen. Mild small bowel dilatation is seen may be related to enteritis. Transitional point cannot be determined from this study. Clinical correlation is recommended. CT was performed with one or more following dose reduction techniques: automated exposure control, adjustment of the mA and kv according to patient's size, or use of a iterative reconstruction technique.
[2024-06-15 02:16] VITALS: BP 112/44; PULSE 67; RESP 18; O2SAT 97
[2024-06-15] MEDS ORDERED: LACT10SO9 PO (02:30)
[2024-06-15] MEDS: MAGNESIUM CITRATE 296 ML SOLUTION PO ONE (02:38)
--- NOTE | 2024-06-15 06:26 | EKG ---
[facility] Test Date: 2024-06-14 Test Time: 23:56:35 Pat Name: KIM SOTELO Department: ED Room: Gender: F Mold Chipper: [id number] : 1960 Requested By: JORGE WHALEN Order Number: [id number] Reading MD: Liv Tripp Measurements Intervals [place] Rate: 71 P: 7 SC: 192 QRS: 11 QRSD: 97 T: 49 QT: 402 QTc: 438 Interpretive Statements Sinus rhythm Compared to ECG 05/20/2024 22:18:59 No significant changes Electronically Signed On 06-15-2024 19:32:08 CDT by Liv Tripp Please click the below link to view image of tracing.
== END 2024-06-15 02:52 | disposition home or self-care (01) ==
LOC: EDH 23:41
DX: K59.00 Constipation, unspecified (principal); N20.0 Calculus of kidney; I10 Essential (primary) hypertension; E11.9 Type 2 diabetes mellitus without complications; E78.5 Hyperlipidemia, unspecified; G47.33 Obstructive sleep apnea (adult) (pediatric); E66.01 Morbid (severe) obesity due to excess calories; M19.90 Unspecified osteoarthritis, unspecified site; I48.91 Unspecified atrial fibrillation; F41.9 Anxiety disorder, unspecified; Z79.01 Long term (current) use of anticoagulants; Z79.82 Long term (current) use of aspirin; Z79.84 Long term (current) use of oral hypoglycemic drugs; Z79.899 Other long term (current) drug therapy; Z90.49 Acquired absence of other specified parts of digestive tract; Z98.890 Other specified postprocedural states
CPT/HCPCS: 99285; 71045; 83735; 84484; 80048; 85025; 83605; 81003; 36415; 93005; 74177; Q9967

== ENCOUNTER → 2024-07-02 | Outpatient (CLI) | payer MEDICAID ==
[~2024-07-02] MED LIST changes: +LACT10SO9 PO
--- NOTE | 2024-07-02 09:49 | HMCIMG ---
UPPER GI TRACT, WO KUB REASON: ABNORMAL FINDINGS ON DX IMAGING PF DIGESTIVE TRACT. COMPARISON: None TECHNIQUE: Biphasic upper GI series study was performed. FINDINGS: There is no obstruction to the antegrade passage of barium from mouth through jejunum. A normal esophageal stripping wave is seen. There is no evidence of hiatal hernia. Gastroesophageal reflux is seen to the level of mid thoracic esophagus. Stomach is distended with retained food material. Patient is nothing by mouth. No evidence of ulceration or mass lesion is seen. Duodenal bulb and duodenal sweep are unremarkable. IMPRESSION: No obstruction. Gastroesophageal reflux to the level of mid thoracic esophagus.
== END | disposition home or self-care (01) ==
LOC: RAH 08:32
PROVIDERS: ATTEND Internal Medicine
DX: K21.9 Gastro-esophageal reflux disease without esophagitis (principal); R93.3 Abnormal findings on diagnostic imaging of other parts of digestive tract; K46.9 Unspecified abdominal hernia without obstruction or gangrene
CPT/HCPCS: 74240

== ENCOUNTER 2024-09-01 16:01 | Emergency (ER) | payer MEDICARE, MEDICAID ==
[~2024-09-01] VITALS: Ht 160 cm; Wt 98.9 kg
--- NOTE | 2024-09-01 16:32 | EKG ---
[facility] Test Date: 2024-09-01 Test Time: 16:24:51 Pat Name: KIM SOTELO Department: ED Room: Gender: F Bag Sealer: [id number] : 1960 Requested By: JERSON DE LEON Order Number: [id number] Reading MD: Liv Tripp Measurements Intervals [place] Rate: 83 P: 51 [place]: 196 QRS: 11 QRSD: 98 T: 49 QT: 376 QTc: 443 Interpretive Statements Sinus rhythm Compared to ECG 06/14/2024 23:56:35 No significant changes Electronically Signed On 09-02-2024 08:08:59 [employer] by Liv Tripp Please click the below link to view image of tracing.
[2024-09-01 16:35] VITALS: BP 100/48; PULSE 84; RESP 16; TEMP 97.6; O2SAT 99
[2024-09-01 16:36] LABS: APPEARANCE,URINE CLEAR (CLEAR); BILIRUBIN,URINE NEGATIVE (NEGATIVE); COLOR,URINE YELLOW (YELLOW); GLUCOSE, URINE (UA) NEGATIVE (NEGATIVE); KETONES,URINE 5 mg/dL (NEGATIVE); LEUKOCYTE ESTERASE ,URINE TRACE Leu/uL (NEGATIVE); NITRATE,URINE POSITIVE (NEGATIVE); OCCULT BLOOD,URINE NEGATIVE (NEGATIVE); PROTEIN,URINE TRACE mg/dL (NEGATIVE)
[2024-09-01 16:38] LABS: BASOPHILS # (AUTO) 0.01 K/uL (0.00-0.20); BASOPHILS % (AUTO) 0.2 % (0.0-5.0); EOSINOPHILS # (AUTO) 0.17 K/uL (0.00-0.70); EOSINOPHILS % (AUTO) 2.9 % (0.0-8.0); HEMATOCRIT 37.6 % (36-48); IMMATURE GRANULOCYTE ABSOLUTE 0.03 K/uL (0-1); LYMPHOCYTES # (AUTO) 1.4 K/uL (1.0-4.8); LYMPHOCYTES % (AUTO) 23.5 % (21.0-51.0); MEAN CORPUSCULAR HEMOGLOBIN 27.3 pg (27.0-33.0); MEAN CORPUSCULAR HGB CONC 32.7 g/dL (32.0-36.0); MEAN CORPUSCULAR VOLUME 83.4 fL (79-99); MONOCYTES # (AUTO) 0.6 K/uL (0.1-1.0); MONOCYTES % (AUTO) 10.2 % (3.0-13.0); NEUTROPHILS # (AUTO) 3.7 K/uL (1.8-7.7); NEUTROPHILS % (AUTO) 62.7 % (40.0-77.0); PLATELET COUNT (AUTO) 196 K/uL (130-400); RED BLOOD CELL COUNT(AUTO) 4.51 MIL/uL (4.00-5.50); RED CELL DISTRIBUTION WIDTH 14.3 % (11.0-15.5); WHITE BLOOD COUNT (AUTO) 5.9 K/uL (4.8-10.8)
[2024-09-01 16:43] LABS: ADD UA MICROSCOPIC YES
--- NOTE | 2024-09-01 16:48 | ERN ---
ED Note History of Present Illness Stated Complaint: DIARRHEA NAUSEA BODY ACHES Chief Complaint: Diarrhea Dictation: This is a case of 64-year-old female with a past medical history of atrial fibrillation, diabetes mellitus type 2, hypertension, arthritis who presented to the ED with the complaints of mild diffuse abdominal pain, diarrhea, nausea, bilious vomiting, mild headache, dizziness since 4 days. She also complains of fever and shortness of breath especially at night since the past 3 days. She denies chest pain, palpitations, burning sensation when urinating, increased frequency of urination. Allergies: Coded Allergies: No Known Drug Allergies (Unverified Allergy, 12/27/11) Home Meds Active Scripts Lactulose (Lactulose) 20 Gram/30 Ml Solution, 30 ML PO DAILY for constipation for 30 Days, #900 ML 0 Refills Prov:JORGE WHALEN MD 06/15/24 Cephalexin Monohydrate (Keflex) 500 Mg Cap, 500 MG PO BID for 5 Days, #10 CAP Prov:SHANDA COSME MD 05/20/24 Gabapentin (Gabapentin) 100 Mg Capsule, 100 MG PO BID PRN for PAIN LEVEL 6 TO 10 for 4 Days, #8 CAP Prov:SHANDA COSME MD 05/20/24 Baclofen (Baclofen) 10 Mg Tablet, 10 MG PO BID for 5 Days, #10 TAB Prov:CHINA DUTTA 04/29/24 Hydralazine HCl (Apresoline) 25 Mg Tab, 25 MG PO BID, #60 TAB Prov:MERRITT FLORES MD 03/04/24 Furosemide (Lasix 20Mg Tab) 20 Mg Tablet, 20 MG PO DAILY, #30 TAB Prov:MERRITT FLORES MD 03/04/24 Apixaban (Eliquis) 5 Mg Tablet, 5 MG PO BID, #60 TAB Prov:MERRITT FLORES MD 03/04/24 Reported Medications Vit A/C/E AC/Znox/Cupric Oxide (Eyeprotect Tablet) 7,160-113 Tablet, 1 EACH PO DAILY, TAB 02/19/24 Montelukast Sodium (Montelukast Sodium) 10 Mg Tablet, 10 MG PO DAILY, TAB 02/19/24 Tizanidine HCl (Tizanidine HCl) 2 Mg Tablet, 2 MG PO HSPRN PRN for MUSCLE SPASMS, TAB 02/19/24 Labetalol HCl (Labetalol HCl) 100 Mg Tablet, 100 MG PO DAILY, TAB 02/19/24 Hydrochlorothiazide (Hydrochlorothiazide) 12.5 Mg Tablet, 12.5 MG PO DAILY, TAB 02/19/24 Telmisartan (Telmisartan) 80 Mg Tablet, 80 MG PO DAILY, TAB 02/19/24 Aspirin (ASPIRIN 81 MG ECTAB) 81 Mg Ectab, 81 MG PO DAILY, TAB.EC 09/21/18 Oxybutynin Chloride (Oxybutynin Chloride) 5 Mg Tablet, 10 MG PO DAILY, TAB 09/21/18 Atorvastatin Calcium (Atorvastatin Calcium) 40 Mg Tablet, 40 MG PO DAILY, TAB 01/28/18 Past Medical History Past Medical History: A-Fib, Diabetes-Type II, Hypertension Additional Past Medical Hx: UMBILICAL HERNIA, SEPSIS Surgical History: Appendectomy, Other Surgical History Other: BILATERAL KNEE, LEFT HIP, HERNIA Family History: CAD, DM, HTN Social History: Negative, Lives with family, Other History: Not Applicable Review of System Dictation CONSTITUTIONAL: No chills, fever no weakness, no diaphoresis, no malaise. HEAD/FACE: No signs of trauma. EENT: No eye pain, no blurred vision, no tearing, no double vision, no ear pain, no ear discharge, no nose pain, no nasal congestion, no throat pain, no throat swelling, no mouth pain. RESPIRATORY: No cough, paroxysmal nocturnal dyspnea, shortness of breath, no stridor, no wheezing. CARDIOVASCULAR: No chest pain, no edema, no palpitations, no syncope. GASTROINTESTINAL/ABDOMINAL: Mild diffuse abdominal pain, no constipation, watery diarrhea , nausea, bilious vomiting GENITOURINARY: No abnormal discharge, no dysuria, no frequent urination, no hematuria. No complaints of pain in the genitals. MUSCULOSKELETAL: No back pain, no gout, no joint pain, no joint swelling, no muscle pain, no muscle stiffness, no neck pain. INTEGUMENTARY: No change in color, no change in hair/nails, no dryness, no lesion, no lumps, no rash. NEUROLOGICAL/PSYCH: No anxiety, not depressed, no emotional problem, no headache, no numbness, no pre-existing deficit, no history of seizures, no tremors, no weakness. HEMATOLOGIC/LYMPHATIC: , no history of blood clots, no apparent bleeding, no bruising, glands not swollen. All Systems Negative, Except as Noted. Initial Vital Sign VS Vital Signs Date Time Temp Pulse Resp B/P (MAP) Pulse Ox O2 Delivery O2 Flow Rate FiO2 09/01/24 16:15 99.0 89 20 98/57 99 Room Air 0 09/01/24 16:35 21 Physical Exam Dictation Physical Exam Dictation VITAL SIGNS: Reviewed. GENERAL APPEARANCE: Alert, oriented x3, no acute distress, obese. HEAD AND FACE: Non-traumatic. EYES: PERRL, pink conjunctivas, eyelid no trauma, anterior chamber clear. NOSE: No discharge, no bleeding. OROPHARYNX: Mouth normal, teeth no caries, tongue pink. Pharynx clear, no erythema. Tonsils no exudates, no abscesses noted. Mucous membrane moist. NECK: Supple, non-tender, no thyromegaly, no masses, no JVD, no bruits. BREAST: Deferred. CHEST: No tenderness, no crepitus, no paradoxical movement, no retractions. LUNGS: Clear, well-ventilated, symmetric, no rales, no wheezing, no rhonchi, no stridor, good breath sounds bilaterally. HEART: Regular rate, regular rhythm, no murmur, no gallops. VASCULAR: No peripheral edema. ABDOMEN: Soft, positive bowel sounds, nondistended, no guarding, mild tenderness in the epigastric region , no rebound, no Matamoros's sign, no hernias. RECTAL: Deferred. GENITAL: Deferred. NEUROLOGICAL: Normal speech, gross motor function intact, gross sensory function intact. MUSCULOSKELETAL: Neck nontender, full range of motion, back nontender, full range of motion. EXTREMITIES: Nontender, full range of motion. SKIN: Color pink, dry, no turgor, no rash, no lacerations, no abrasions, no contusions. LYMPHATICS: Deferred. Results (Laboratory/Radiology) Laboratory/Radiology Laboratory Tests Test 09/01/24 16:25 09/01/24 16:33 Urine Color YELLOW (YELLOW) Urine Appearance CLEAR (CLEAR) Urine pH 6.0 (5.0-8.0) Urine Specific [place] 1.025 (1.001-1.031) Urine Protein TRACE mg/dL (NEGATIVE) H Urine Glucose (UA) NEGATIVE mg/dL (NEGATIVE) Urine Ketones 5 mg/dL (NEGATIVE) H Urine Occult Blood NEGATIVE (NEGATIVE) Urine Nitrate POSITIVE (NEGATIVE) H Urine Bilirubin NEGATIVE mg/dL (NEGATIVE) Urine Urobilinogen 1.0 mg/dL (0.2-1.0) Urine Leukocyte Esterase TRACE [place]/uL (NEGATIVE) H Urine RBC 0-1 /HPF (0-1) Urine WBC 6-10 /HPF (0-1) H Urine Squamous Epithelial Cells Moderate /HPF (0-2) H Urine Bacteria Moderate /HPF (None Seen) H White Blood Count 5.9 K/uL (4.8-10.8) Red Blood Count 4.51 MIL/uL (4.00-5.50) Hemoglobin 12.3 g/dL (12.0-16.0) Hematocrit 37.6 % (36-48) Mean Corpuscular Volume 83.4 fL (79-99) Mean Corpuscular Hemoglobin 27.3 pg (27.0-33.0) Mean Corpuscular Hemoglobin Concent 32.7 g/dL (32.0-36.0) Red Cell Distribution Width 14.3 % (11.0-15.5) Platelet Count 196 K/uL (130-400) Mean Platelet Volume 10.6 fL (7.5-10.5) H Immature Granulocyte % (Auto) 0.5 % (0-1) Neutrophils (%) (Auto) 62.7 % (40.0-77.0) Lymphocytes (%) (Auto) 23.5 % (21.0-51.0) Monocytes (%) (Auto) 10.2 % (3.0-13.0) Eosinophils (%) (Auto) 2.9 % (0.0-8.0) Basophils (%) (Auto) 0.2 % (0.0-5.0) Neutrophils # (Auto) 3.7 K/uL (1.8-7.7) Lymphocytes # (Auto) 1.4 K/uL (1.0-4.8) Monocytes # (Auto) 0.6 K/uL (0.1-1.0) Eosinophils # (Auto) 0.17 K/uL (0.00-0.70) Basophils # (Auto) 0.01 K/uL (0.00-0.20) Absolute Immature Granulocyte (auto 0.03 K/uL (0-1) Nucleated Red Blood Cells 0.0 % (0.0-0.19) Sodium Level 142 mmol/L (136-145) Potassium Level 3.5 mmol/L (3.5-5.1) Chloride Level 106 mmol/L (101-111) Carbon Dioxide Level 23 mmol/L (21-32) Blood Urea Nitrogen 32 mg/dL (7-18) H Creatinine 1.0 mg/dL (0.5-1.0) Glomerular Filtration Rate Calc 63 mL/min (>90) Random Glucose 110 mg/dL (70-105) H Total Calcium 8.9 mg/dL (8.5-10.1) Total Creatine Kinase 85 U/L (21-232) Troponin I High Sensitivity < 4.0 ng/L (4-50) L Lipase 22 U/L (16-77) ED Course ED Course Orders Procedure Category Date Status Time Vital Signs Per CPOE 09/01/24 Transmitted Routine 16:18 Saline Lock Iv CPOE 09/01/24 Transmitted 16:18 Cbc With Differential LAB 09/01/24 Complete 16:18 Lipase LAB 09/01/24 Complete 16:18 Urinalysis Profile LAB 09/01/24 Complete 16:18 12 Lead Ekg Tracing- EKG 09/01/24 Complete Technical 16:18 Basic Metabolic Panel LAB 09/01/24 Complete 16:18 Covid19 (Sars Antigen LAB 09/01/24 In Process Rapid) 16:18 Influenza Type A & B, LAB 09/01/24 In Process Rapid 16:18 Cardiac Panel LAB 09/01/24 Complete 16:35 Ct Abdomen/Pelvis W/O CT 09/01/24 Resulted Contrast 16:35 0.9%Nacl 1000ml (Ns PHA 09/01/24 Complete 1000ml) 17:00 Culture Urine JOSÉ MIGUEL 09/01/24 In Process 16:43 Morphine 2mg Syg PHA 09/01/24 Complete (Morphine 2mg Syg) 17:30 Current Medications Medications (Trade) Dose Ordered Sig/Angelic Route PRN Reason Start Time Stop Time Status Last Admin Dose Admin Morphine Sulfate (morPHINE 2MG SYG) 2 mg ONCE ONCE IVP 09/01/24 17:30 09/01/24 17:31 DC 09/01/24 17:25 Sodium Chloride 1,000 ml @ 0 mls/hr ONCE ONCE IV 09/01/24 17:00 09/01/24 17:01 DC 09/01/24 17:21 Vital Signs Date Time Temp Pulse Resp B/P (MAP) Pulse Ox O2 Delivery O2 Flow Rate FiO2 09/01/24 16:35 97.5 84 16 100/48 99 Room Air* 0 21 09/01/24 16:15 99.0 89 20 98/57 99 Room Air 0 Medical Decision Making MDM MDM Potential differential diagnoses include: Influenza Gastroenteritis COVID Viral syndrome Assessment: We will order CBC was done in order to to rule any anemia, infections and to evaluate the overall health of the patient. CMP was ordered in order to assess various electrolytes, kidney function, liver function ,protein levels and blood glucose levels,Will order 1 Liter of NS for adequate hydration. I will re-evaluate the patient after treatment and diagnostic exams have returned to determine whether they require further testing, can be safely d ischarged home, or need admission for further treatment and evaluation. Given the social determinants of health affecting care, including literacy, access to medical care, prescription drug management, and [id number] drugs, I will ensure that treatment plans are tailored accordingly. Revaluation : PATIENT IS AWAKE ALERT AND ORIENTED. Labs BUN 32, urinalysis positive for nitrate WBC and bacteria. EKG resulted in sinus rhythm. Disposition: PATIENT IS BEING DISCHARGED HOME WITH ORAL PRESCRIPTION OF ZOFRAN Q.8H P.R.N. 4 MG P.O. FOR NAUSEA, KEFLEX 500 MG B.I.D. FOR 5 DAYS FOR UTI DX & DISP Disposition: Discharge Departure Impression: Primary Impression: Gastroenteritis Additional Impression: UTI (urinary tract infection) Critical Time: 30 minutes Condition: Stable Scripts Cephalexin Monohydrate (Keflex) 500 Mg Cap 1 CAP PO BID for 5 Days, #10 CAP 0 Refills Prov: ISABELLA CAMPBELL MD 09/01/24 Ondansetron (Ondansetron Odt) 4 Mg Tab.rapdis 1 TAB PO Q8HPRN PRN for nausea/vomiting for 4 Days, #12 TAB 0 Refills Prov: ISABELLA CAMPBELL MD 09/01/24 Additional Instructions: Follow up with PCP within 2-3 days Drink plenty of fluids especially water Complete the antibiotic course as directed Use Zofran p.r.n. for nausea Monitor for symptoms like fever, chills, persistent abdominal pain, persistent vomiting, persistent diarrhea, shortness of breath and seek immediate medical attention in such scenario Referrals: NIMESH ALVAREZ USER INTERFACE ENGINEER (PCP) ATTESTATION BY PHYSICIAN I have seen and examined the patient. I reviewed the documentation, medical decision making, and treatment plan as noted by the resident above. I agree with the findings and plan of care. ISABELLA KIRBY MD, MD Sep 01, 2024 16:48
[2024-09-01 16:50] LABS: POTASSIUM 3.5 mmol/L (3.5-5.1)
[2024-09-01 16:54] LABS: RBC,URINE 0-1 /HPF (0-1)
[2024-09-01 16:55] LABS: BACTERIA,URINE Moderate /HPF (None Seen); SQUAMOUS EPITHELIAL CELL,UR Moderate /HPF (0-2)
[2024-09-01 17:13] LABS: CREATINE KINASE, TOTAL 85 U/L (21-232)
[2024-09-01] MEDS: 0.9%NACL 1000ML 1,000 ML IV ONE (17:21)
--- NOTE | 2024-09-01 17:23 | HMCIMG ---
CT ABDOMEN WITHOUT CONTRAST. CT PELVIS WITHOUT CONTRAST. INDICATION: Abdominal pain and diarrhea TECHNIQUE: Routine transaxial imaging using 5 mm slice thickness through the abdomen and pelvis without the administration of IV contrast. Thin slice reconstructions are also provided. Coronal and sagittal reformatted images acquired for interpretation. CT was performed with one or more of the following dose reduction techniques: Automated exposure control, adjustment of the mA and/or kV according to patient size, or use of iterative reconstruction technique. COMPARISON: None FINDINGS: ON NONCONTRAST IMAGING: ABDOMEN: Heart size is normal. Visible lung bases are clear. No abnormal renal calcifications, hydronephrosis, perinephric inflammation, or proximal hydroureter detected. 5 mm curvilinear calcific effusion at the lower pole of the left kidney. The liver is normal in size and smooth in contour without biliary duct dilation. The spleen is normal in size and attenuation. The gallbladder is absent. The pancreas appears normal without pancreatic duct dilation. The adrenal glands appear normal. No significant abdominal, retrocrural or retroperitoneal adenopathy noted. No evidence for intra-abdominal free air or organized fluid collection. No aortic aneurysmal dilation identified. PELVIS: No abnormal calcifications within the urinary bladder or distal ureters. No evidence for free air or organized pelvic fluid collection. No significant pelvic adenopathy detected. Visualized small and large bowel loops appear unremarkable. Terminal ileum appears unremarkable. The appendix is absent. Streak artifact in total left hip prosthesis. IMPRESSION: Subcentimeter nonobstructing left renal stone without evidence for colitis.
[2024-09-01] MEDS: morPHINE 2 MG SYG IVP ONE (17:25)
[2024-09-01 17:36] LABS: COVID19 (SARS ANTIGEN RAPID) PRESUMPTIVE NEGATIVE (NEGATIVE); INFLUENZA TYPE A Negative For Type A (NEGATIVE); INFLUENZA TYPE B Negative For Type B (NEGATIVE)
[2024-09-01] MEDS ORDERED: ONDA-243 PO (17:37)
[2024-09-01] MEDS ORDERED: CEPH500B PO (17:37)
[2024-09-01] MEDS: ondanSETRON 4MG INJ IVP ONE (17:55)
== END 2024-09-01 19:03 | disposition home or self-care (01) ==
LOC: EDH 16:01
DX: K52.9 Noninfective gastroenteritis and colitis, unspecified (principal); N39.0 Urinary tract infection, site not specified; E11.9 Type 2 diabetes mellitus without complications; I10 Essential (primary) hypertension; I48.91 Unspecified atrial fibrillation; Z79.01 Long term (current) use of anticoagulants; Z79.82 Long term (current) use of aspirin; Z79.899 Other long term (current) drug therapy; Z90.49 Acquired absence of other specified parts of digestive tract; Z20.822 Contact with and (suspected) exposure to COVID-19
CPT/HCPCS: 99285; 74176; 96374; 96361; 96375; 87426; 82550; 84484; 80048; 83690; 85025; 87086 ×3; 87186 ×2; 87804 ×2; 81001; 36415; 93005; J2270; J7030; J2405

== ENCOUNTER 2025-01-03 16:24 | Emergency (ER) | payer OTHER, MEDICARE ==
[~2025-01-03] VITALS: Ht 157.5 cm; Wt 104.3 kg
[~2025-01-03 16:24] MED LIST changes: +ONDA-243 PO
[2025-01-03 17:05] LABS: BASOPHILS # (AUTO) 0.03 K/uL (0.00-0.20); BASOPHILS % (AUTO) 0.4 % (0.0-5.0); EOSINOPHILS # (AUTO) 0.17 K/uL (0.00-0.70); EOSINOPHILS % (AUTO) 2.4 % (0.0-8.0); HEMATOCRIT 35.2 % (36-48); IMMATURE GRANULOCYTE ABSOLUTE 0.02 K/uL (0-1); LYMPHOCYTES # (AUTO) 2.5 K/uL (1.0-4.8); LYMPHOCYTES % (AUTO) 34.9 % (21.0-51.0); MEAN CORPUSCULAR HEMOGLOBIN 27.5 pg (27.0-33.0); MEAN CORPUSCULAR HGB CONC 32.4 g/dL (32.0-36.0); MONOCYTES # (AUTO) 0.6 K/uL (0.1-1.0); MONOCYTES % (AUTO) 8.1 % (3.0-13.0); NEUTROPHILS # (AUTO) 3.8 K/uL (1.8-7.7); NEUTROPHILS % (AUTO) 53.9 % (40.0-77.0); PLATELET COUNT (AUTO) 202 K/uL (130-400); RED BLOOD CELL COUNT(AUTO) 4.14 MIL/uL (4.00-5.50); RED CELL DISTRIBUTION WIDTH 14.4 % (11.0-15.5)
[2025-01-03 17:19] LABS: CREATININE 0.7 mg/dL (0.5-1.0)
[2025-01-03 18:31] LABS: SARS-CoV-2, RNA, NAAT NEGATIVE SARS CoV-2 (NEGATIVE)
[2025-01-03 18:37] LABS: INFLUENZA TYPE A Negative For Type A (NEGATIVE); INFLUENZA TYPE B Negative For Type B (NEGATIVE)
[2025-01-03 18:42] LABS: APPEARANCE,URINE CLEAR (CLEAR); BILIRUBIN,URINE NEGATIVE (NEGATIVE); COLOR,URINE LIGHT-YELLOW (YELLOW); GLUCOSE, URINE (UA) NEGATIVE (NEGATIVE); KETONES,URINE NEGATIVE (NEGATIVE); LEUKOCYTE ESTERASE ,URINE NEGATIVE Leu/uL (NEGATIVE); NITRATE,URINE NEGATIVE (NEGATIVE); OCCULT BLOOD,URINE NEGATIVE (NEGATIVE); PROTEIN,URINE NEGATIVE (NEGATIVE); UROBILINOGEN,URINE 0.2 mg/dL (0.2-1.0)
[2025-01-03 18:43] LABS: ADD UA MICROSCOPIC NO
[2025-01-03] MEDS: ketOROlac 15MG/ML VIAL (15MG/ML) IV ONE (18:44)
--- NOTE | 2025-01-03 19:34 | HMCIMG ---
KNEE 3VWS RT INDICATION: PAIN/SWELLING TECHNIQUE: KNEE 3VWS RT. Comparison study 12/18/2016 FINDINGS AND IMPRESSION: No displaced fracture or dislocation is seen. Correlate clinically. There is diffuse soft tissue swelling Prosthesis in anatomic alignment. Lucency noted surrounding the femoral component of the prosthesis which may may represent loosening versus infection. Correlate clinically.
--- NOTE | 2025-01-03 19:58 | HMCIMG ---
CT ABDOMEN/PELVIS W/O CONTRAST INDICATION: hernia, umbilical, pain TECHNIQUE: CT ABDOMEN/PELVIS W/O CONTRAST. Oral contrast was not given. Coronal and sagittal reformats were performed. CT was performed with one or more of the following dose reduction techniques: Automated exposure control, adjustment of the mA and/or kV according to the patient's size, or use of the iterative reconstruction technique. Comparison: 09/01/2024 FINDINGS: The noncontrast nature this study limits evaluation of abdominal viscera. Mild atelectatic changes are seen in the lung bases. There is mild cardiomegaly. There is hepatic steatosis. Cholecystectomy changes are noted. The spleen, pancreas, and adrenal glands are within normal limits. No hydronephrosis. The urinary bladder is partially collapsed. 9 mm nonobstructing calculus in the lower pole of the left kidney. Evaluation of the pelvis is degraded due to streak artifact from the left hip prosthesis. Prominent fecal material is seen in the colon suggestive of constipation. Scattered diverticulosis coli without evidence of acute diverticulitis. No bowel obstruction is seen. Small fat-containing umbilical hernia. Appendix is not clearly visualized limiting evaluation. Correlate clinically. Atherosclerotic changes of the aorta with calcified plaques. Degenerative changes of the spine are seen. Mild grade 1 anterolisthesis at L4-L5. IMPRESSION: 1. Prominent fecal material is seen in the colon suggestive of constipation. 2. Scattered diverticulosis coli without evidence of acute diverticulitis. No bowel obstruction is seen. 3. Small fat-containing umbilical hernia.
--- NOTE | 2025-01-03 20:15 | ERN ---
ED Note History of Present Illness Stated Complaint: ABDOMEN PAIN,SWOLLEN KNEE Chief Complaint: Abdominal Pain Time Seen by MD: 16:32 Time Seen by Midlevel: 16:33 Dictation: 64-YEAR-OLD FEMALE COMING IN COMPLAINING OF UMBILICAL PAIN AND RIGHT KNEE PAIN. PATIENT STATES SHE ROLLED HER KNEE ON AN UNEVEN GROUND AND THEN SHE IS KNEES AND FELT A PULL TO HER BELLY BUTTON. IT IS CONCERNED BECAUSE HE HAS A HISTORY AND UMBILICAL HERNIA. DENIES ANY NAUSEA OR VOMITING DIARRHEA. Allergies: Coded Allergies: No Known Drug Allergies (Unverified Allergy, 12/27/11) Home Meds Active Scripts Cephalexin Monohydrate (Keflex) 500 Mg Cap, 1 CAP PO BID for 5 Days, #10 CAP 0 Refills Prov:ISABELLA CAMPBELL MD 09/01/24 Ondansetron (Ondansetron Odt) 4 Mg Tab.rapdis, 1 TAB PO Q8HPRN PRN for nausea/vomiting for 4 Days, #12 TAB 0 Refills Prov:ISABELLA CAMPBELL MD 09/01/24 Lactulose (Lactulose) 20 Gram/30 Ml Solution, 30 ML PO DAILY for constipation for 30 Days, #900 ML 0 Refills Prov:JORGE WHALEN MD 06/15/24 Cephalexin Monohydrate (Keflex) 500 Mg Cap, 500 MG PO BID for 5 Days, #10 CAP Prov:SHANDA COSME MD 05/20/24 Gabapentin (Gabapentin) 100 Mg Capsule, 100 MG PO BID PRN for PAIN LEVEL 6 TO 10 for 4 Days, #8 CAP Prov:SHANDA COSME MD 05/20/24 Baclofen (Baclofen) 10 Mg Tablet, 10 MG PO BID for 5 Days, #10 TAB Prov:CHINA DUTTA 04/29/24 Hydralazine HCl (Apresoline) 25 Mg Tab, 25 MG PO BID, #60 TAB Prov:MERRITT FLORES MD 03/04/24 Furosemide (Lasix 20Mg Tab) 20 Mg Tablet, 20 MG PO DAILY, #30 TAB Prov:MRERITT FLORES MD 03/04/24 Apixaban (Eliquis) 5 Mg Tablet, 5 MG PO BID, #60 TAB Prov:MERRITT FLORES MD 03/04/24 Reported Medications Vit A/C/E AC/Znox/Cupric Oxide (Eyeprotect Tablet) 7,160-113 Tablet, 1 EACH PO DAILY, TAB 02/19/24 Montelukast Sodium (Montelukast Sodium) 10 Mg Tablet, 10 MG PO DAILY, TAB 02/19/24 Tizanidine HCl (Tizanidine HCl) 2 Mg Tablet, 2 MG PO HSPRN PRN for MUSCLE SPASMS, TAB 02/19/24 Labetalol HCl (Labetalol HCl) 100 Mg Tablet, 100 MG PO DAILY, TAB 02/19/24 Hydrochlorothiazide (Hydrochlorothiazide) 12.5 Mg Tablet, 12.5 MG PO DAILY, TAB 02/19/24 Telmisartan (Telmisartan) 80 Mg Tablet, 80 MG PO DAILY, TAB 02/19/24 Aspirin (ASPIRIN 81 MG ECTAB) 81 Mg Ectab, 81 MG PO DAILY, TAB.EC 09/21/18 Oxybutynin Chloride (Oxybutynin Chloride) 5 Mg Tablet, 10 MG PO DAILY, TAB 09/21/18 Atorvastatin Calcium (Atorvastatin Calcium) 40 Mg Tablet, 40 MG PO DAILY, TAB 01/28/18 Past Medical History Past Medical History: A-Fib, Diabetes-Type II, High Cholesterol, Hypertension Additional Past Medical Hx: UMBILICAL HERNIA, SEPSIS Surgical History: Appendectomy, Cholecystectomy, Other Surgical History Other: BILATERAL KNEE, LEFT HIP, HERNIA Family History: CAD, DM, HTN Social History: Negative, Lives with family, Other History: Not Applicable Review of System Dictation CONSTITUTIONAL: NEGATIVE FOR FEVER,CHILLS, AND WEIGHT LOSS EYES: NEGATIVE FOR INJURY, PAIN,REDNESS, AND DISCHARGE ENT: NEGATIVE FOR INJURY,PAIN OR SWELLING CARDIOVASCULAR: NEGATIVE FOR CHEST PAIN, PALPITATIONS, AND EDEMA RESPIRATORY: NEGATIVE FOR SHORTNESS OF BREATH, COUGH, AND WHEEZING, ABDOMEN/GI: ABDOMINAL PAIN, NO NAUSEA, NO VOMITING, NO DIARRHEA, AND NO CONSTIPATION BACK: NEGATIVE FOR INJURY AND PAIN : NEGATIVE FOR INJURY, BLEEDING AND DISCHARGE MS/EXTREMITY: NEGATIVE FOR INJURY AND DEFORMITY SKIN: NEGATIVE FOR RASH, AND DISCOLORATION, RIGHT KNEE PAIN NEURO: NEGATIVE FOR HEADACHE, WEAKNESS, NUMBNESS, TINGLING, AND SEIZURE PSYCH: NEGATIVE FOR SUICIDE IDEATION, HOMICIDAL IDEATION, AND HALLUCINATIONS Review of Systems: was completed Initial Vital Sign VS Vital Signs Date Time Temp Pulse Resp B/P (MAP) Pulse Ox O2 Delivery O2 Flow Rate FiO2 01/03/25 16:34 98.6 75 14 126/78 97 Room Air 0 01/03/25 18:54 21 Physical Exam Dictation GENERAL: AWAKE, ALERT, NAD HEAD/FACE: NORMOCEPHALIC, ATRAUMATIC EYES: PERRL, EOMI, VISION AT BASELINE ENT: ORAL CAVITY CLEAR, TMS CLEAR, NO SIGNS OF INFECTION NECK: TRACHEA MIDLINE, SUPPLE, NO NUCHAL RIGIDITY CARDIOVASCULAR: RRR, NORMAL S1/S2, NO MRGS, NO JVD RESPIRATORY: CTAB, NO RESPIRATORY DISTRESS, NO RALES OR WHEEZES ABDOMEN: SOFT, NON-TENDER, NON-DISTENDED, NORMAL BOWEL SOUNDS, NO GUARDING OR REBOUND. SKIN: WARM, DRY, NORMAL TURGOR, NO RASH MS/EXTREMITY: PULSES EQUAL, NO CYANOSIS, NEUROVASCULAR INTACT, FROM NEURO: COAX4, GCS 15, STRENGTH 5/5, CN 2-12 INTACT, NORMAL CEREBELLAR EXAM, NORMAL GAIT, PSYCH: NORMAL BEHAVIOR, MOOD, AND AFFECT NORMAL Results (Laboratory/Radiology) Laboratory/Radiology Laboratory Tests Test 01/03/25 14:21 01/03/25 16:59 01/03/25 18:12 01/03/25 18:30 Group A Streptococcus Rapid negative (NEGATIVE) White Blood Count 7.0 K/uL (4.8-10.8) Red Blood Count 4.14 MIL/uL (4.00-5.50) Hemoglobin 11.4 g/dL (12.0-16.0) L Hematocrit 35.2 % (36-48) L Mean Corpuscular Volume 85.0 fL (79-99) Mean Corpuscular Hemoglobin 27.5 pg (27.0-33.0) Mean Corpuscular Hemoglobin Concent 32.4 g/dL (32.0-36.0) Red Cell Distribution Width 14.4 % (11.0-15.5) Platelet Count 202 K/uL (130-400) Mean Platelet Volume 10.5 fL (7.5-10.5) Immature Granulocyte % (Auto) 0.3 % (0-1) Neutrophils (%) (Auto) 53.9 % (40.0-77.0) Lymphocytes (%) (Auto) 34.9 % (21.0-51.0) Monocytes (%) (Auto) 8.1 % (3.0-13.0) Eosinophils (%) (Auto) 2.4 % (0.0-8.0) Basophils (%) (Auto) 0.4 % (0.0-5.0) Neutrophils # (Auto) 3.8 K/uL (1.8-7.7) Lymphocytes # (Auto) 2.5 K/uL (1.0-4.8) Monocytes # (Auto) 0.6 K/uL (0.1-1.0) Eosinophils # (Auto) 0.17 K/uL (0.00-0.70) Basophils # (Auto) 0.03 K/uL (0.00-0.20) Absolute Immature Granulocyte (auto 0.02 K/uL (0-1) Nucleated Red Blood Cells 0.0 % (0.0-0.19) Sodium Level 143 mmol/L (136-145) Potassium Level 4.0 mmol/L (3.5-5.1) Chloride Level 109 mmol/L (101-111) Carbon Dioxide Level 28 mmol/L (21-32) Blood Urea Nitrogen 20 mg/dL (7-18) H Creatinine 0.7 mg/dL (0.5-1.0) Glomerular Filtration Rate Calc 96 mL/min (>90) Random Glucose 132 mg/dL (70-105) H Lactic Acid Level 1.4 mmol/L (0.8-2.5) Total Calcium 8.3 mg/dL (8.5-10.1) L Lipase 34 U/L (16-77) Influenza Type A Antigen Negative For Type A Influenza Type B Antigen Negative For Type B SARS-CoV-2, RNA, NAAT NEGATIVE SARS CoV-2 Urine Color LIGHT-YELLOW (YELLOW) Urine Appearance CLEAR (CLEAR) Urine pH 6.0 (5.0-8.0) Urine Specific [place] 1.026 (1.001-1.031) Urine Protein NEGATIVE mg/dL (NEGATIVE) Urine Glucose (UA) NEGATIVE mg/dL (NEGATIVE) Urine Ketones NEGATIVE mg/dL (NEGATIVE) Urine Occult Blood NEGATIVE (NEGATIVE) Urine Nitrate NEGATIVE (NEGATIVE) Urine Bilirubin NEGATIVE mg/dL (NEGATIVE) Urine Urobilinogen 0.2 mg/dL (0.2-1.0) Urine Leukocyte Esterase NEGATIVE [place]/uL Test 01/03/25 20:35 Erythrocyte Sedimentation Rate 15 MM/HR (0-30) Labs Reviewed?: Yes X-RAY Comment: [place] [id number] [place] [id number] IMAGING REPORT Signed PATIENT: KIM SOTELO MR#: [id number] : 1960 SEX: F AGE: 64 LOCATION: ED ORDER 37 STATUS: REG ER REPORT#: [id number] SERVICE 35 REASON: PAIN/SWELLING ORDERING PHYSICIAN: ALDEN CORTEZ NP PROCEDURE: KNEE 3V RT - KNEE 3VWS RT KNEE 3VWS RT INDICATION: PAIN/SWELLING TECHNIQUE: KNEE 3VWS RT. Comparison study 12/18/2016 FINDINGS AND IMPRESSION: No displaced fracture or dislocation is seen. Correlate clinically. There is diffuse soft tissue swelling Prosthesis in anatomic alignment. Lucency noted surrounding the femoral component of the prosthesis which may may represent loosening versus infection. Correlate clinically. DICTATED BY: CARL FRENCH MD DATE: 01/03/251930 ELECTRONICALLY SIGNED BY: CARL FRENCH MD DATE: 01/03/251933 CT Scan Comment: [place] [id number] [id number] IMAGING REPORT Signed PATIENT: KIM SOTELO MR#: [id number] : 1960 SEX: F AGE: 64 LOCATION: ED ORDER 08 STATUS: REG ER REPORT#: [id number] SERVICE 07 REASON: hernia, umbilical, pain ORDERING PHYSICIAN: ALDEN CORTEZ NP PROCEDURE: ABD PEL WO - CT ABDOMEN/PELVIS W/O CONTRAST CT ABDOMEN/PELVIS W/O CONTRAST INDICATION: hernia, umbilical, pain TECHNIQUE: CT ABDOMEN/PELVIS W/O CONTRAST. Oral contrast was not given. Coronal and sagittal reformats were performed. CT was performed with one or more of the following dose reduction techniques: Automated exposure control, adjustment of the mA and/or kV according to the patient's size, or use of the iterative reconstruction technique. Comparison: 09/01/2024 FINDINGS: The noncontrast nature this study limits evaluation of abdominal viscera. Mild atelectatic changes are seen in the lung bases. There is mild cardiomegaly. There is hepatic steatosis. Cholecystectomy changes are noted. The spleen, pancreas, and adrenal glands are within normal limits. No hydronephrosis. The urinary bladder is partially collapsed. 9 mm nonobstructing calculus in the lower pole of the left kidney. Evaluation of the pelvis is degraded due to streak artifact from the left hip prosthesis. Prominent fecal material is seen in the colon suggestive of constipation. Scattered diverticulosis coli without evidence of acute diverticulitis. No bowel obstruction is seen. Small fat-containing umbilical hernia. Appendix is not clearly visualized limiting evaluation. Correlate clinically. Atherosclerotic changes of the aorta with calcified plaques. Degenerative changes of the spine are seen. Mild grade 1 anterolisthesis at L4-L5. IMPRESSION: 1. Prominent fecal material is seen in the colon suggestive of constipation. 2. Scattered diverticulosis coli without evidence of acute diverticulitis. No bowel obstruction is seen. 3. Small fat-containing umbilical hernia. ED Course ED Course Orders Procedure Category Date Status Time Cbc With Differential LAB 01/03/25 Complete 16:41 Basic Metabolic Panel LAB 01/03/25 Complete 16:41 Lipase LAB 01/03/25 Complete 16:41 Urinalysis Profile LAB 01/03/25 Complete 16:41 Lactic Acid LAB 01/03/25 Complete 16:41 Covid Rna Naat LAB 01/03/25 Complete 16:41 Influenza Type A & B, LAB 01/03/25 Complete Rapid 16:41 Knee 3vws Rt RAD 01/03/25 Resulted 18:36 Ketorolac PHA 01/03/25 Complete Tromethamine 15mg/Ml 19:00 Ct Abdomen/Pelvis W/O CT 01/03/25 Resulted Contrast 19:08 Erythrocyte LAB 01/03/25 Complete Sedimentation Rate 20:21 Rapid (Group A Strep) LAB 01/03/25 Complete 21:20 Current Medications Medications (Trade) Dose Ordered Sig/Angelic Route PRN Reason Start Time Stop Time Status Last Admin Dose Admin Ketorolac Tromethamine (toRADol) 15 mg ONCE ONCE IV 01/03/25 19:00 01/03/25 19:01 DC 01/03/25 18:44 Vital Signs Date Time Temp Pulse Resp B/P (MAP) Pulse Ox O2 Delivery O2 Flow Rate FiO2 01/03/25 22:12 71 17 155/71 98 Room Air* 0 21 01/03/25 21:23 98.6 69 18 160/76 100 Room Air* 0 21 01/03/25 18:54 68 18 153/69 99 Room Air* 0 21 01/03/25 16:34 98.6 75 14 126/78 97 Room Air 0 Medical Decision Making MDM MDM: 64-YEAR-OLD FEMALE COMING IN COMPLAINING OF UMBILICAL PAIN AND RIGHT KNEE PAIN. PATIENT STATES SHE ROLLED HER KNEE ON AN UNEVEN GROUND AND THEN SHE IS KNEES AND FELT A PULL TO HER BELLY BUTTON. IT IS CONCERNED BECAUSE HE HAS A HISTORY AND UMBILICAL HERNIA. DENIES ANY NAUSEA OR VOMITING DIARRHEA.CBC shows no leukocytosis, no anemia, no thrombocytopenia. Chemistry shows mild hyperglycemia at 132.. UA shows no evidence of urinary tract infection. Serology negative for strep, COVID, flu. CT scan shows hepatic steatosis, left kidney stone, constipation and an umbilical hernia containing fat. X-ray of the knee shows lucency noted surrounding the femoral complaining of prosthesis which may represent loosening versus infection, ESR is negative, patient does not have any redness, swelling, warmth or streaking. Low suspicion for infectious process. Discussed findings with the patient. Educated patient to follow up with her PCP and return to the hospital as needed. Patient verbalized understanding, answered all questions. DIFFERENTIAL DIAGNOSIS: Incarcerated hernia, knee contusion, knee dislocation, UTI RATIONALE: TESTS CONSIDERED AND ORDERED SECONDARY TO SHARED DECISION MAKING INCLUDE: PREVIOUS OUTSIDE RECORDS REVIEWED: OLD ER VISITS. RISK OF COMPLICATION AND/OR MORBIDITY OR MORTALITY OF PATIENT MANAGEMENT: NONE MEDICATIONS-PER MEDICATION RECONCILIATION NEED FOR HOSPITALIZATION: PATIENT DOES NOT MEET CRITERIA FOR HOSPITALIZATION. NEED FOR EMERGENCY MAJOR/MINOR SURGERY: NO THERE ARE NO SOCIAL CONCERNS WITH THIS PATIENT. PRESCRIPTION DRUG MANAGEMENT PRESCRIPTIONS WILL INCLUDE SYMPTOMATIC CARE PATIENT'S PRIOR EXTERNAL MEDICAL RECORDS FROM OTHER ER VISITS WERE REVIEWED BY ME INDICATED. PRIOR TESTING AND RESULTS FROM PREVIOUS VISITS WERE REVIEWED. PRIOR TESTS WERE TAKEN INTO ACCOUNT WITH MEDICAL DECISION MAKING AND RESOURCE UTILIZATION, INDEPENDENT HISTORIAN/HISTORIANS WERE USED TO OBTAIN COMPLETE MEDICAL HISTORY. I INDEPENDENTLY INTERPRETED THE TEST THAT WERE PERFORMED, RESULTS WERE REVIEWED BY ME AND CONSIDERED FINDINGS ON RADIOLOGY IF ORDERED. MEDICAL MANAGEMENT AND EXAMINATION INTERPRETATION DISCUSSIONS WERE HAD BY ME WITH OTHER QUALIFIED HEALTHCARE PROFESSIONALS INDICATED FOR THE PATIENT'S CARE. DX & DISP Disposition: Discharge Departure Impression: Primary Impression: Umbilical hernia Additional Impressions: Renal colic on left side, Knee pain, Constipation, Hepatic steatosis Condition: Stable Scripts Ketorolac Tromethamine (Ketorolac Tromethamine) 10 Mg Tablet 1 TAB PO BID PRN for pain for 5 Days, #10 TAB 0 Refills Prov: ALDEN CORTEZ NP 01/03/25 Additional Instructions: Follow up with your primary doctor in 1-2 days. Return to the hospital as needed. Take Tylenol or Motrin [id number] for pain control. Referrals: DANIEL SCOTT MD (PCP) Time of Disposition: 22:52 I have reviewed the case, and I agree with, Diagnosis and Plan ALDEN CORTEZ NP January 03, 2025 20:15
[2025-01-03 21:23] VITALS: TEMP 98.6
[2025-01-03 22:12] VITALS: BP 155/71; PULSE 71; RESP 17; O2SAT 98
[2025-01-03] MEDS ORDERED: KETO10TA2 PO (22:54)
== END 2025-01-03 23:02 | disposition home or self-care (01) ==
LOC: EDH 16:24
DX: K42.9 Umbilical hernia without obstruction or gangrene (principal); N23 Unspecified renal colic; K76.0 Fatty (change of) liver, not elsewhere classified; M25.561 Pain in right knee; I48.91 Unspecified atrial fibrillation; I10 Essential (primary) hypertension; K59.00 Constipation, unspecified; E11.9 Type 2 diabetes mellitus without complications; E78.00 Pure hypercholesterolemia, unspecified; Z79.01 Long term (current) use of anticoagulants; Z79.82 Long term (current) use of aspirin; Z79.899 Other long term (current) drug therapy; Z90.49 Acquired absence of other specified parts of digestive tract; Z20.822 Contact with and (suspected) exposure to COVID-19
CPT/HCPCS: 99285; 74176; 96374; 87635; 80048; 83690; 85025; 85651; 87880; 87804 ×2; 83605; 81003; 36415; 73562; J1885

== ENCOUNTER 2025-03-27 13:15 | Inpatient (IN) | payer OTHER, MEDICAID ==
[~2025-03-27] VITALS: Ht 157.5 cm; Wt 106.0 kg
[~2025-03-27 13:15] MED LIST changes: +CYCL5TAB3 PO; +KETO10TA2 PO; +PRED20TA3 PO; +TRAM-543 PO
[2025-03-27 13:48] LABS: IMMATURE GRANULOCYTE ABSOLUTE 0.02 K/uL (0-1); NUCLEATED RED BLOOD CELLS 0.0 % (0.0-0.19); PLATELET COUNT (AUTO) 174 K/uL (130-400); RED BLOOD CELL COUNT(AUTO) 4.29 MIL/uL (4.00-5.50); RED CELL DISTRIBUTION WIDTH 14.0 % (11.0-15.5); WHITE BLOOD COUNT (AUTO) 6.4 K/uL (4.8-10.8)
[2025-03-27 13:54] LABS: APPEARANCE,URINE CLEAR (CLEAR); GLUCOSE, URINE (UA) NEGATIVE (NEGATIVE); LEUKOCYTE ESTERASE ,URINE 25 Leu/uL (NEGATIVE); NITRATE,URINE 2+ (NEGATIVE); OCCULT BLOOD,URINE NEGATIVE (NEGATIVE)
[2025-03-27 13:54] LABS: CREATININE 0.6 mg/dL (0.5-1.0); GLOMERULAR FILTR. RATE CALC 100.0 mL/min (>90); GLUCOSE,RANDOM 118.0 mg/dL (70-105); SODIUM SERUM 141.0 mmol/L (136-145); UREA NITROGEN, BLOOD 15.0 mg/dL (7-18)
[2025-03-27 13:59] LABS: ADD UA MICROSCOPIC YES
[2025-03-27 13:59] LABS: CREATINE KINASE, TOTAL 123.0 U/L (21-232)
[2025-03-27 14:02] LABS: SQUAMOUS EPITHELIAL CELL,UR MOD /HPF (0-2)
--- NOTE | 2025-03-27 14:21 | HMCIMG ---
EXAM: Chest radiograph 1 view HISTORY: Palpitations COMPARISON: 06/15/2024 FINDINGS: No pulmonary consolidations. No pleural effusion or pneumothorax. Stable cardiomediastinal silhouette and pulmonary vasculature. Degenerative changes. IMPRESSION: No acute cardiopulmonary disease. /[place]
--- NOTE | 2025-03-27 14:32 | ERN ---
General Chief Complaint: Palpitations Stated Complaint: PALPITATIONS Time Seen by MD: 13:17 Source: patient History of Present Illness Initial Comments Is a 64-year-old female coming in complaining of racing heart. She states that she was recently placed on labetalol PCP. Allergies: Coded Allergies: No Known Drug Allergies (Unverified Allergy, 12/27/11) Home Meds Active Scripts Tramadol HCl/Acetaminophen (Tramadol-Acetaminophn 37.5-325) 37.5 Mg-325 Mg T ablet, 1 TAB PO Q4HPRN PRN for pain for 5 Days, #20 TAB 0 Refills Prov:JORGE WHALEN MD 03/05/25 Prednisone (Prednisone) 20 Mg Tablet, 1 TAB PO AD for 6 Days, #14 TAB 0 Refills TAKE 1 TAB BY MOUTH THREE TIMES PER DAY X3 DAYS, THEN TAKE 1 TAB BY MOUTH TWICE A DAY X2 DAYS, THEN TAKE 1 TAB BY MOUTH ONCE A DAY X1 DAY. Prov:JORGE WHALEN MD 03/05/25 Cyclobenzaprine HCl (Cyclobenzaprine HCl) 5 Mg Tablet, 1 TAB PO HSPRN PRN for muscle spasms for 30 Days, #30 TAB 0 Refills Prov:JORGE WHALEN MD 03/05/25 Ketorolac Tromethamine (Ketorolac Tromethamine) 10 Mg Tablet, 1 TAB PO BID PRN for pain for 5 Days, #10 TAB 0 Refills Prov:ALDEN CORTEZ NP 01/03/25 Cephalexin Monohydrate (Keflex) 500 Mg Cap, 1 CAP PO BID for 5 Days, #10 CAP 0 Refills Prov:ISABELLA CAMPBELL MD 09/01/24 Ondansetron (Ondansetron Odt) 4 Mg Tab.rapdis, 1 TAB PO Q8HPRN PRN for nausea/vomiting for 4 Days, #12 TAB 0 Refills Prov:ISABELLA CAMPBELL MD 09/01/24 Lactulose (Lactulose) 20 Gram/30 Ml Solution, 30 ML PO DAILY for constipation for 30 Days, #900 ML 0 Refills Prov:JORGE WHALEN MD 06/15/24 Cephalexin Monohydrate (Keflex) 500 Mg Cap, 500 MG PO BID for 5 Days, #10 CAP Prov:SHANDA COSME MD 05/20/24 Gabapentin (Gabapentin) 100 Mg Capsule, 100 MG PO BID PRN for PAIN LEVEL 6 TO 10 for 4 Days, #8 CAP Prov:SHANDA COSME MD 05/20/24 Baclofen (Baclofen) 10 Mg Tablet, 10 MG PO BID for 5 Days, #10 TAB Prov:CHINA DUTTA 04/29/24 Hydralazine HCl (Apresoline) 25 Mg Tab, 25 MG PO BID, #60 TAB Prov:MERRITT FLORES MD 03/04/24 Furosemide (Lasix 20Mg Tab) 20 Mg Tablet, 20 MG PO DAILY, #30 TAB Prov:MERRITT FLORES MD 03/04/24 Apixaban (Eliquis) 5 Mg Tablet, 5 MG PO BID, #60 TAB Prov:MERRITT FLORES MD 03/04/24 Reported Medications Vit A/C/E AC/Znox/Cupric Oxide (Eyeprotect Tablet) 7,160-113 Tablet, 1 EACH PO DAILY, TAB 02/19/24 Montelukast Sodium (Montelukast Sodium) 10 Mg Tablet, 10 MG PO DAILY, TAB 02/19/24 Tizanidine HCl (Tizanidine HCl) 2 Mg Tablet, 2 MG PO HSPRN PRN for MUSCLE SPASMS, TAB 02/19/24 Labetalol HCl (Labetalol HCl) 100 Mg Tablet, 100 MG PO DAILY, TAB 02/19/24 Hydrochlorothiazide (Hydrochlorothiazide) 12.5 Mg Tablet, 12.5 MG PO DAILY, TAB 02/19/24 Telmisartan (Telmisartan) 80 Mg Tablet, 80 MG PO DAILY, TAB 02/19/24 Aspirin (ASPIRIN 81 MG ECTAB) 81 Mg Ectab, 81 MG PO DAILY, TAB.EC 09/21/18 Oxybutynin Chloride (Oxybutynin Chloride) 5 Mg Tablet, 10 MG PO DAILY, TAB 09/21/18 Atorvastatin Calcium (Atorvastatin Calcium) 40 Mg Tablet, 40 MG PO DAILY, TAB 01/28/18 Past Medical History Past Medical History: Angina, Diabetes-Type II, High Cholesterol, Heart Dis ease, Hypertension Medical History Other: UMBILICAL HERNIA, SEPSIS Past Surgical History: Other Surgical History Other: neel knee sx, left hip sx Family History Family History: CAD, DM, HTN Social History Social History: Negative, Lives with family, Other Female( History) History: Not Applicable Results Laboratory and Microbiology Lab and Micro Result Laboratory Tests Test 03/27/25 13:39 03/27/25 13:40 White Blood Count 6.4 K/uL (4.8-10.8) Red Blood Count 4.29 MIL/uL (4.00-5.50) Hemoglobin 11.7 g/dL (12.0-16.0) L Hematocrit 36.8 % (36-48) Mean Corpuscular Volume 85.8 fL (79-99) Mean Corpuscular Hemoglobin 27.3 pg (27.0-33.0) Mean Corpuscular Hemoglobin Concent 31.8 g/dL (32.0-36.0) L Red Cell Distribution Width 14.0 % (11.0-15.5) Platelet Count 174 K/uL (130-400) Mean Platelet Volume 10.4 fL (7.5-10.5) Immature Granulocyte % (Auto) 0.3 % (0-1) Neutrophils (%) (Auto) 59.5 % (40.0-77.0) Lymphocytes (%) (Auto) 28.0 % (21.0-51.0) Monocytes (%) (Auto) 8.5 % (3.0-13.0) Eosinophils (%) (Auto) 3.4 % (0.0-8.0) Basophils (%) (Auto) 0.3 % (0.0-5.0) Neutrophils # (Auto) 3.8 K/uL (1.8-7.7) Lymphocytes # (Auto) 1.8 K/uL (1.0-4.8) Monocytes # (Auto) 0.5 K/uL (0.1-1.0) Eosinophils # (Auto) 0.22 K/uL (0.00-0.70) Basophils # (Auto) 0.02 K/uL (0.00-0.20) Absolute Immature Granulocyte (auto 0.02 K/uL (0-1) Nucleated Red Blood Cells 0.0 % (0.0-0.19) Sodium Level 141 mmol/L (136-145) Potassium Level 3.7 mmol/L (3.5-5.1) Chloride Level 106 mmol/L (101-111) Carbon Dioxide Level 28 mmol/L (21-32) Blood Urea Nitrogen 15 mg/dL (7-18) Creatinine 0.6 mg/dL (0.5-1.0) Glomerular Filtration Rate Calc 100 mL/min (>90) Random Glucose 118 mg/dL (70-105) H Total Calcium 8.9 mg/dL (8.5-10.1) Magnesium Level 1.60 mg/dL (1.80-2.40) L Total Creatine Kinase 123 U/L (21-232) # Troponin I High Sensitivity 5 ng/L (4-50) Lipase 21 U/L (16-77) Urine Color YELLOW (YELLOW) Urine Appearance CLEAR (CLEAR) Urine pH 6.0 (5.0-8.0) Urine Specific [place] 1.030 (1.001-1.031) Urine Protein NEGATIVE mg/dL (NEGATIVE) Urine Glucose (UA) NEGATIVE mg/dL (NEGATIVE) Urine Ketones NEGATIVE mg/dL (NEGATIVE) Urine Occult Blood NEGATIVE (NEGATIVE) Urine Nitrate 2+ (NEGATIVE) H Urine Bilirubin NEGATIVE mg/dL (NEGATIVE) Urine Urobilinogen 0.2 mg/dL (0.2-1.0) Urine Leukocyte Esterase 25 [place]/uL (NEGATIVE) H Urine RBC 2-5 /HPF (0-1) H Urine WBC 11-25 /HPF (0-1) H Urine Squamous Epithelial Cells MOD /HPF (0-2) Urine Bacteria FEW /HPF (None Seen) Labs Reviewed?: Yes EKG/XRAY/US/CT/MRI EKG Comment 03/27/2025 time 1:20 p.m. Ventricular rate 74 Sinus rhythm [place] [address] wave elevation or depression MDM MDM: Differential diagnosis: Arrhythmias, history of AFib, tachy-ashley, Rationale: Tests considered and ordered secondary to shared decision making include: labs, ECG and radiology Previous outside records reviewed: Old ER visits. Risk of complication and/or morbidity or mortality of patient management: None Medications-Per medication reconciliation Need for hospitalization: Patient does meet criteria for hospitalization. Need for emergency major/minor surgery: No There are no social concerns with this patient. Prescription drug management Prescriptions will include symptomatic care Patient's prior external medical records from other ER visits were reviewed by me as indicated. Prior testing and results from previous visits were reviewed. Prior tests were taken into account with medical decision making and resource utilization, independent historian/historians were used to obtain complete medical history. I independently interpreted the test that were performed, results were reviewed by me and considered findings on radiology if ordered. Medical management and examination interpretation discussions were had by me with other qualified healthcare professionals as indicated for the patient's care. Patient is a 64-year-old female coming in with irregular heartbeat. EKG did not disclose acute findings based on her presentation and her history. Patient will be admitted under the care of hospitalist group for ongoing management. ED Course Orders Procedure Category Date Status Time Cbc With Differential LAB 03/27/25 Complete 13:19 Chest 1vw RAD 03/27/25 Resulted 13:19 12 Lead Ekg Tracing- EKG 03/27/25 Logged Technical 13:19 Magnesium LAB 03/27/25 Complete 13:19 Creatine Kinase, Total LAB 03/27/25 Complete 13:19 Troponin I High LAB 03/27/25 Complete Sensitivity 13:19 Urinalysis Profile LAB 03/27/25 Complete 13:19 Basic Metabolic Panel LAB 03/27/25 Complete 13:19 Lipase LAB 03/27/25 Complete 13:19 Culture Urine JOSÉ MIGUEL 03/27/25 In Process 13:59 Vital Signs Date Time Temp Pulse Resp B/P (MAP) Pulse Ox O2 Delivery O2 Flow Rate FiO2 03/27/25 13:23 97.2 81 20 160/70 99 Room Air* 0 21 03/27/25 13:17 97.2 81 20 160/70 99 Room Air 0 DX & DISP Disposition: Inpatient Decision to Admit Time: 15:29 Departure Impression: Primary Impression: Arrhythmia Additional Impression: History of atrial fibrillation Condition: Stable Referrals: DANIEL SCOTT MD (PCP) SHANDA COSME MD Mar 27, 2025 14:32
--- NOTE | 2025-03-27 15:49 | EKG ---
[facility] Test Date: 2025-03-27 Test Time: 13:20:33 Pat Name: KIM SOTELO Department: [facility] Room: ED Gender: F Cash Specialist: [id number] : 1960 Requested By: SHANDA COSME Order Number: [id number] Reading MD: Boone Bryson Measurements Intervals [place] Rate: 74 P: 20 [place]: 197 QRS: 6 QRSD: 102 T: 57 QT: 397 QTc: 462 Interpretive Statements Sinus rhythm Premature Ventricular Beat Compared to ECG 03/05/2025 19:48:21 Electronically Signed On 03-28-2025 11:07:19 CDT by Boone Bryson Please click the below link to view image of tracing.
--- NOTE | 2025-03-27 17:00 | NUR ---
RECEIVED HANDOFF REPORT FROM ANTONIO HERCULES
--- NOTE | 2025-03-27 17:20 | NUR ---
CARDIO DR NIETO MADE AWARE OF PATIENT
--- NOTE | 2025-03-27 17:22 | HP ---
[facility] HISTORY AND PHYSICAL Date of Service: Mar 27, 2025 Time of Service: 16:57 HISTORY OF PRESENT ILLNESS: [The patient is a 64-year-old female with a history of asthma, obstructive sleep apnea, hypertension, type 2 diabetes mellitus, angina, atrial fibrillation, and left lower extremity deep vein thrombosis (DVT) recently diagnosed three weeks ago. She presented to the ED with complaints of palpitations associated with shortness of breath. The patient reports that her shortness of breath began approximately one week ago, initially occurring with minimal exertion such as walking a short distance. She also describes intermittent palpitations and pain localized to the left side of her neck, radiating to the left shoulder blade. The pain is described as shooting in nature and was ongoing at the time of the interview. She denies any specific aggravating factors for her pain. The patient reports that Dr. Chen has scheduled a procedure for her left lower extremity DVT on April 05. She is unsure of the exact procedure but was told that they may "open up her veins" and possibly use a balloon. She was instructed to stop Eliquis 24 hours prior to the procedure. In the ED, a 12-lead EKG demonstrated normal sinus rhythm. However, the patient continues to report episodes of palpitations and chest pressure. She was recently started on labetalol 100 mg by her pearl technician, but reports experiencing bradycardia as a side effect. Due to her persistent symptoms and overall feeling of unwellness, the decision was made to admit her for further evaluation and management. REVIEW OF SYSTEMS CONSTITUTIONAL: Denies fevers, chills, or night sweats. No unintentional weight loss reported. NEUROLOGICAL: Denies headache, amaurosis fugax, motor weakness, sensory deficit, vertigo/spinning sensation, gait abnormalities, or tremors. ENT: No hearing loss, otalgia, otorrhea, rhinitis, rhinorrhea, hoarseness, or sore throat. CARDIOVASCULAR: Denies any exertional angina, dyspnea on exertion, orthopnea, paroxysmal nocturnal dyspnea, palpitations, life-threatening arrhythmias, claudication. PULMONARY: Denies any shortness of breath, cough, phlegm/sputum, hemoptysis, pleuritic chest pain. SLEEP: Denies morning headaches, daytime somnolence or napping. Denies difficulty falling asleep, staying asleep, waking from sleep. Denies knowledge of snoring. GASTROINTESTINAL: Denies any type of dysphagia to either liquids or solids. Denies nausea, vomiting, pyrosis, early satiety, abdominal pain, diarrhea, constipation, or changes in stool consistency or caliber. Denies coffee-ground emesis, hematemesis, hematochezia, or melanotic stools. GENITOURINARY: Denies frequency, urgency, nocturia, hematuria or incontinence (Storage/Irritative symptoms.) Low urinary stream, straining to void, urinary intermittency or hesitancy, splitting of the voiding stream, terminal dribbling. ENDOCRINOLOGIC: Denies polyuria, polydipsia, polyphagia or heat/cold intolerances. HEMATOLOGIC: Denies thrombophilia/previous clots, or coagulopathy/bleeding disorders. ONCOLOGIC: Denies personal history of malignancy. DERMATOLOGIC: Denies rashes or pruritus. PSYCHIATRIC: Denies any suicidal or homicidal ideation. Denies hallucinations. PAST MEDICAL HISTORY: [Obstructive sleep apnea, Coronary Artery Disease, morbid obesity, hyperlipid emia, hypertension, diabetes, anxiety ] PAST SURGICAL HISTORY: [ Bilateral knee replacement, appendectomy 2021, cholecystectomy ] PAST SOCIAL HISTORY: [ Denies smoking, denies alcohol use, denies drug illicit ] FAMILY HISTORY: [Father of age of 65 from heart attack, Mother of age 55 from heart attack ] Coded Allergies: No Known Drug Allergies (Unverified Allergy, 12/27/11) PHYSICAL EXAM GENERAL APPEARANCE: The patient is awake, alert, and oriented, in no acute cardiopulmonary distress. NEUROLOGICAL: Cranial nerves II-XII grossly intact. Motor is 5/5 in bilateral upper and lower extremities proximal to distal. No sensory deficits. HEENT: Face is symmetric. Pupils are equal and reactive. Extraocular movements are intact. NECK: Supple. No JVD. No thyromegaly. No submental, submandibular, pre- /postauricular, occipital or supraclavicular lymphadenopathy. CHEST: Normal chest expansion. No Telemetry. LUNGS: Absence of any rales, rhonchi or any wheezing. CARDIOVASCULAR: Regular. S1 and S2 normal. No appreciable rubs, murmurs or gallops. ABDOMEN: Soft, nontender, and nondistended. There is no rebound, voluntary guarding, or rigidity. : Deferred. No You. EXTREMITIES: Non-edematous and not cyanotic. No clubbing. Good capillary refill. SKIN: No skin breakdown. Vital Sign (Last 24 Hours) 03/27/25 15:05 Temp 97.2 Pulse 74 Resp 18 B/P (MAP) 151/76 Pulse Ox 99 O2 Delivery Room Air* O2 Flow Rate 0 FiO2 21 LABS: Laboratory: Test 03/27/25 13:40 03/27/25 13:39 Range/Units Urine Color YELLOW YELLOW Urine Appearance CLEAR CLEAR Urine pH 6.0 5.0-8.0 Urine Specific [place] 1.030 1.001-1.031 Urine Protein NEGATIVE NEGATIVE mg/dL Urine Glucose (UA) NEGATIVE NEGATIVE mg/dL Urine Ketones NEGATIVE NEGATIVE mg/dL Urine Occult Blood NEGATIVE NEGATIVE Urine Nitrate 2+ H NEGATIVE Urine Bilirubin NEGATIVE NEGATIVE mg/dL Urine Urobilinogen 0.2 0.2-1.0 mg/dL Urine Leukocyte Esterase 25 H NEGATIVE [place]/uL Urine RBC 2-5 H 0-1 /HPF Urine WBC 11-25 H 0-1 /HPF Urine Squamous Epithelial Cells MOD 0-2 /HPF Urine Bacteria FEW None Seen /HPF White Blood Count 6.4 4.8-10.8 K/uL Red Blood Count 4.29 4.00-5.50 MIL/uL Hemoglobin 11.7 L 12.0-16.0 g/dL Hematocrit 36.8 36-48 % Mean Corpuscular Volume 85.8 79-99 fL Mean Corpuscular Hemoglobin 27.3 27.0-33.0 pg Mean Corpuscular Hemoglobin Concent 31.8 L 32.0-36.0 g/dL Red Cell Distribution Width 14.0 11.0-15.5 % Platelet Count 174 130-400 K/uL Mean Platelet Volume 10.4 7.5-10.5 fL Immature Granulocyte % (Auto) 0.3 0-1 % Neutrophils (%) (Auto) 59.5 40.0-77.0 % Lymphocytes (%) (Auto) 28.0 21.0-51.0 % Monocytes (%) (Auto) 8.5 3.0-13.0 % Eosinophils (%) (Auto) 3.4 0.0-8.0 % Basophils (%) (Auto) 0.3 0.0-5.0 % Neutrophils # (Auto) 3.8 1.8-7.7 K/uL Lymphocytes # (Auto) 1.8 1.0-4.8 K/uL Monocytes # (Auto) 0.5 0.1-1.0 K/uL Eosinophils # (Auto) 0.22 0.00-0.70 K/uL Basophils # (Auto) 0.02 0.00-0.20 K/uL Absolute Immature Granulocyte (auto 0.02 0-1 K/uL Nucleated Red Blood Cells 0.0 0.0-0.19 % Sodium Level 141 136-145 mmol/L Potassium Level 3.7 3.5-5.1 mmol/L Chloride Level 106 101-111 mmol/L Carbon Dioxide Level 28 21-32 mmol/L Blood Urea Nitrogen 15 7-18 mg/dL Creatinine 0.6 0.5-1.0 mg/dL Glomerular Filtration Rate Calc 100 >90 mL/min Random Glucose 118 H 70-105 mg/dL Total Calcium 8.9 8.5-10.1 mg/dL Magnesium Level 1.60 L 1.80-2.40 mg/dL Total Creatine Kinase 123 # 21-232 U/L Troponin I High Sensitivity 5 4-50 ng/L Lipase 21 16-77 U/L Current Medications Medications (Trade) Dose Ordered Sig/Angelic Route PRN Reason Start Time Stop Time Status Last Admin Dose Admin Acetaminophen (TYLenol 325MG TAB) 650 mg Q4H PRN PO TEMPERATURE GREATER THAN 101.5 03/27/25 17:00 04/26/25 16:59 UNV Acetaminophen (TYLenol 325MG TAB) 650 mg Q6H PRN PO MILD PAIN (1-3) 03/27/25 17:00 04/26/25 16:59 UNV Metoprolol Tartrate (loprESSOR) 25 mg BID PO 03/27/25 21:00 04/26/25 20:59 UNV Ondansetron HCl (zoFRAN 4MG INJ) 4 mg Q6H PRN IVP NAUSEA/VOMITING 03/27/25 17:00 04/26/25 16:59 UNV DIAGNOSTICS / RADIOLOGY: [ ] ASSESSMENT: Palpitations, etiology to be determined (history of AFib, currently in normal sinus rhythm) Shortness of breath, rule out pulmonary embolism Left lower extremity deep vein thrombosis (DVT), recently diagnosed History of atrial fibrillation Hypertension Type 2 diabetes mellitus Angina Asthma Obstructive sleep apnea Bradycardia, likely secondary to labetalol Scheduled left lower extremity venous intervention (pending details) ] PLAN: [Rule out pulmonary embolism: -Order CT angiogram of the chest (CT PE protocol) to evaluate for pulmonary embolism. Cardiac monitoring: -Admit to telemetry for continuous cardiac monitoring given history of AFib, palpitations, and bradycardia. -Serial EKGs and rhythm monitoring. Symptom management: -Monitor and treat chest pain and palpitations as indicated. -Supplemental oxygen if hypoxic. -Monitor for signs of heart failure or acute coronary syndrome. Medication review: -Hold labetalol due to reported bradycardia. -Review all current medications for potential interactions or side effects. Anticoagulation: -Continue Eliquis as indicated for DVT and AFib, but coordinate with interventional radiology/vascular surgery regarding timing of discontinuation prior to scheduled procedure (per instructions, stop 24 hours before procedure). Pre-procedure coordination: -Confirm details of scheduled left lower extremity venous procedure with Dr. Chen. -Ensure appropriate julio cesar-procedural anticoagulation management. Laboratory and diagnostic workup: -CBC, CMP, troponin, BNP, D-dimer, PT/INR, aPTT. -Echocardiogram -Lower extremity venous duplex bilaterally. Chronic disease management: -Monitor and control blood pressure and blood glucose. -Continue home medications as appropriate, adjusting for current clinical status. Consultations: -Cardiology for arrhythmia and bradycardia management. -Vascular surgery/interventional radiology for DVT procedure planning, will ask cardiology if ok. Patient education and discharge planning: -Educate patient on signs and symptoms of worsening DVT, PE, or arrhythmia. -Discharge planning to include follow-up with cardiology and vascular surgery. Supportive care: -GI prophylaxis -repeat labs tomorrow ADVANCED CARE PLANNING 1. Which of the following were discussed? Hospice Care - Yes / No Therapeutic options - Yes / No Advance Directives - Yes / No Other discussions - 2. Discussed with who? patient 3. Voluntary nature of this service was explained to the patient? Yes / No 4. Amount of time spent - __20 mins 5. Reviewed by Physician? (if this service was performed by NPP) Yes / No ] ATTESTATION BY PHYSICIAN I have seen and examined the patient. I reviewed the documentation, medical decision making, and treatment plan as noted by the mid-level provider above. I agree with the findings and plan of care. Milena Olivera MD, [facility] Mar 27, 2025 17:22
[2025-03-27 17:28] VITALS: BP 164/72; PULSE 81; RESP 20; TEMP 97.8
[2025-03-27] MEDS ORDERED: METO5TAB2 PO (17:40)
[2025-03-27] MEDS ORDERED: LABE100T7 PO (17:40)
[2025-03-27] MEDS ORDERED: ROPI0.2535 PO (17:40)
[2025-03-27] MEDS ORDERED: BUDE10.2 IH (17:40)
[2025-03-27] MEDS ORDERED: INSU100V37 SQ (17:40)
[2025-03-27] MEDS ORDERED: INSU100C14 SQ (17:40)
[2025-03-27] MEDS ORDERED: PANT20TA18 PO (17:40)
[2025-03-27 18:10] VITALS: O2SAT 98
[2025-03-27 18:54] VITALS: BP 152/71
[2025-03-27] MEDS ORDERED: GLUCAGON 1MG KIT 1 MG ML IM PRN (19:30)
[2025-03-27] MEDS ORDERED: PoTASSium chl 10% ELIXIR 20MEQ 20 MEQ/15 ML UDCUP PO PRN (19:30)
[2025-03-27] MEDS ORDERED: DEXTROSE 50%-WATER 50 ML DISP.SYRIN IV PRN (19:30)
[2025-03-27] MEDS ORDERED: PoTASSium chloRIDE 20MEQ ER 20 MEQ ERTAB PO PRN (19:30)
[2025-03-27 19:53] LABS: INR 1.02 (0.85-1.15)
[2025-03-27] MEDS ORDERED: IOHEXOL 350 MG/ML 100ML INFUS..BTL IV ONE (20:35)
--- NOTE | 2025-03-27 21:48 | HMCIMG ---
EXAM: CTA Chest with and without Intravenous Contrast for PE evaluation CLINICAL HISTORY: Patient presents with shortness of breath and history of left lower extremity DVT. Rule out pulmonary embolism. TECHNIQUE: Axial CTA images of the chest with and without intravenous contrast using a pulmonary embolism protocol. Multiplanar reconstructed images were created and reviewed. CONTRAST: Administered intravenously. COMPARISON: Chest radiograph dated March 27, 2025. FINDINGS: PULMONARY ARTERIES: No evidence of central or segmental pulmonary embolism. AORTA: No evidence of thoracic aortic aneurysm or dissection. Atherosclerotic vascular calcifications are noted. LUNGS: Subsegmental atelectasis and few fibrotic strands in the bilateral lower lobes. No pulmonary mass. PLEURAL SPACES: No pleural effusion. No pneumothorax. HEART: Heart size is within normal limits. No significant pericardial effusion. LYMPH NODES: No lymphadenopathy is evident. BONES: No focal osseous abnormality or acute fracture. UPPER ABDOMEN: The gallbladder is surgically absent. Remaining visualized upper abdominal organs are unremarkable. IMPRESSION: No pulmonary embolism. Subsegmental atelectasis and fibrotic changes in the bilateral lower lobes. Postsurgical absence of the gallbladder. /[place]
[2025-03-28] VITALS (7 sets, daily range): BP systolic 153–171; BP diastolic 52–85; PULSE 69–77; RESP 15–20; TEMP 97.6–98.6; O2SAT 97–99
[2025-03-28 08:01] LABS: NUCLEATED RED BLOOD CELLS 0.0 % (0.0-0.19); PLATELET COUNT (AUTO) 170.0 K/uL (130-400); RED BLOOD CELL COUNT(AUTO) 4.15 MIL/uL (4.00-5.50); RED CELL DISTRIBUTION WIDTH 13.9 % (11.0-15.5); WHITE BLOOD COUNT (AUTO) 5.5 K/uL (4.8-10.8)
[2025-03-28 08:15] LABS: ASPARTATE AMINOTRANSFERASE 19.0 U/L (10-37); CREATININE 0.6 mg/dL (0.5-1.0); GLOMERULAR FILTR. RATE CALC 100.0 mL/min (>90); GLUCOSE,RANDOM 106.0 mg/dL (70-105); SODIUM SERUM 142.0 mmol/L (136-145); TOTAL PROTEIN, SERUM 6.5 g/dL (6.0-8.3); UREA NITROGEN, BLOOD 13.0 mg/dL (7-18)
--- NOTE | 2025-03-28 09:55 | NUR ---
SWITCHED PATIENTS BED OUT TO A HOSPITAL BED TO PROVIDE MORE COMFORT. PATIENT IS AWAKE AND LAYING IN BED WATCHING TV. NO COMPLAINT OF PAIN OR OTHER CONCERNS AT THIS TIME.
--- NOTE | 2025-03-28 15:05 | PN ---
[facility] PROGRESS NOTE Date of Service: Mar 28, 2025 Time of Service: 15:02 SUBJECTIVE: [64-year-old female admitted due to palpitations and shortness of breaths. She was recently diagnosed with DVT to the left lower extremities. On admission, she was complaining of shortness of breaths and pain to the left neck radiating to her mid back, she describes pain as shooting pain even at rest. A D-dimer was done which showed 4819. A CT PE protocol was ordered which showed no pulmonary embolism, subsegmental atelectasis and fibrotic changes in the bilateral lower lobes noted. We are still pending Cardiology recommendation we will continue current management at this time. ] REVIEW OF SYSTEMS CONSTITUTIONAL: Denies fevers, chills, or night sweats. No unintentional weight loss reported. NEUROLOGICAL: Denies headache, amaurosis fugax, motor weakness, sensory deficit, vertigo/spinning sensation, gait abnormalities, or tremors. ENT: No hearing loss, otalgia, otorrhea, rhinitis, rhinorrhea, hoarseness, or sore throat. CARDIOVASCULAR: Denies any exertional angina, dyspnea on exertion, orthopnea, paroxysmal nocturnal dyspnea, palpitations, life-threatening arrhythmias, claudication. PULMONARY: Denies any shortness of breath, cough, phlegm/sputum, hemoptysis, pleuritic chest pain. SLEEP: Denies morning headaches, daytime somnolence or napping. Denies diff iculty falling asleep, staying asleep, waking from sleep. Denies knowledge of snoring. GASTROINTESTINAL: Denies any type of dysphagia to either liquids or solids. Denies nausea, vomiting, pyrosis, early satiety, abdominal pain, diarrhea, constipation, or changes in stool consistency or caliber. Denies coffee-ground emesis, hematemesis, hematochezia, or melanotic stools. GENITOURINARY: Denies frequency, urgency, nocturia, hematuria or incontinence (Storage/Irritative symptoms.) Low urinary stream, straining to void, urinary intermittency or hesitancy, splitting of the voiding stream, terminal dribbling. ENDOCRINOLOGIC: Denies polyuria, polydipsia, polyphagia or heat/cold in tolerances. HEMATOLOGIC: Denies thrombophilia/previous clots, or coagulopathy/bleeding disorders. ONCOLOGIC: Denies personal history of malignancy. DERMATOLOGIC: Denies rashes or pruritus. PSYCHIATRIC: Denies any suicidal or homicidal ideation. Denies hallucinations. PHYSICAL EXAM GENERAL APPEARANCE: The patient is awake, alert, and oriented, in no acute cardiopulmonary distress. NEUROLOGICAL: Cranial nerves II-XII grossly intact. Motor is 5/5 in bilateral upper and lower extremities proximal to distal. No sensory deficits. HEENT: Face is symmetric. Pupils are equal and reactive. Extraocular movements are intact. NECK: Supple. No JVD. No thyromegaly. No submental, submandibular, pre- /postauricular, occipital or supraclavicular lymphadenopathy. CHEST: Normal chest expansion. No Telemetry. LUNGS: Absence of any rales, rhonchi or any wheezing. CARDIOVASCULAR: Regular. S1 and S2 normal. No appreciable rubs, murmurs or gallops. ABDOMEN: Soft, nontender, and nondistended. There is no rebound, voluntary guarding, or rigidity. : Deferred. No You. EXTREMITIES: Non-edematous and not cyanotic. No clubbing. Good capillary refill. SKIN: No skin breakdown. Vital Signs (last 8hr) Date Time Temp Pulse Resp B/P (MAP) Pulse Ox O2 Delivery O2 Flow Rate FiO2 03/28/25 12:00 97.5 73 18 153/77 99 Room Air 03/28/25 09:47 97 Room Air* 0 21 03/28/25 08:00 97.9 72 20 163/85 97 Room Air LABS: Laboratory: Test 03/28/25 10:51 03/28/25 07:19 03/27/25 19:23 03/27/25 13:40 Range/Units Whole Blood Glucose 95 70-110 MG/DL White Blood Count 5.5 4.8-10.8 K/uL Red Blood Count 4.15 4.00-5.50 MIL/uL Hemoglobin 11.4 L 12.0-16.0 g/dL Hematocrit 35.0 L 36-48 % Mean Corpuscular Volume 84.3 79-99 fL Mean Corpuscular Hemoglobin 27.5 27.0-33.0 pg Mean Corpuscular Hemoglobin Concent 32.6 32.0-36.0 g/dL Red Cell Distribution Width 13.9 11.0-15.5 % Platelet Count 170 130-400 K/uL Mean Platelet Volume 10.7 H 7.5-10.5 fL Nucleated Red Blood Cells 0.0 0.0-0.19 % Sodium Level 142 136-145 mmol/L Potassium Level 3.9 3.5-5.1 mmol/L Chloride Level 106 101-111 mmol/L Carbon Dioxide Level 27 21-32 mmol/L Blood Urea Nitrogen 13 7-18 mg/dL Creatinine 0.6 0.5-1.0 mg/dL Glomerular Filtration Rate Calc 100 >90 mL/min Random Glucose 106 H 70-105 mg/dL Total Calcium 8.7 8.5-10.1 mg/dL Magnesium Level 1.60 L 1.80-2.40 mg/dL Total Bilirubin 0.5 0.2-1.0 mg/dL Aspartate Amino Transf (AST/SGOT) 19 10-37 U/L Alanine Aminotransferase (ALT/SGPT) 30 12-78 U/L Alkaline Phosphatase 104 50-136 U/L Total Protein 6.5 6.0-8.3 g/dL Albumin 3.2 L 3.5-5.0 g/dL Prothrombin Time 10.8 9.6-11.6 SEC Prothromb Time International Ratio 1.02 0.85-1.15 Activated Partial Thromboplast Time 16.2 L 26.3-35.5 SEC D-Dimer Quantitative (PE/DVT) 4819 *H 0-500 ng/mL Urine Color YELLOW YELLOW Urine Appearance CLEAR CLEAR Urine pH 6.0 5.0-8.0 Urine Specific [place] 1.030 1.001-1.031 Urine Protein NEGATIVE NEGATIVE mg/dL Urine Glucose (UA) NEGATIVE NEGATIVE mg/dL Urine Ketones NEGATIVE NEGATIVE mg/dL Urine Occult Blood NEGATIVE NEGATIVE Urine Nitrate 2+ H NEGATIVE Urine Bilirubin NEGATIVE NEGATIVE mg/dL Urine Urobilinogen 0.2 0.2-1.0 mg/dL Urine Leukocyte Esterase 25 H NEGATIVE [place]/uL Urine RBC 2-5 H 0-1 /HPF Urine WBC 11-25 H 0-1 /HPF Urine Squamous Epithelial Cells MOD 0-2 /HPF Urine Bacteria FEW None Seen /HPF Test 03/27/25 13:39 Range/Units Immature Granulocyte % (Auto) 0.3 0-1 % Neutrophils (%) (Auto) 59.5 40.0-77.0 % Lymphocytes (%) (Auto) 28.0 21.0-51.0 % Monocytes (%) (Auto) 8.5 3.0-13.0 % Eosinophils (%) (Auto) 3.4 0.0-8.0 % Basophils (%) (Auto) 0.3 0.0-5.0 % Neutrophils # (Auto) 3.8 1.8-7.7 K/uL Lymphocytes # (Auto) 1.8 1.0-4.8 K/uL Monocytes # (Auto) 0.5 0.1-1.0 K/uL Eosinophils # (Auto) 0.22 0.00-0.70 K/uL Basophils # (Auto) 0.02 0.00-0.20 K/uL Absolute Immature Granulocyte (auto 0.02 0-1 K/uL Total Creatine Kinase 123 # 21-232 U/L Troponin I High Sensitivity 5 4-50 ng/L B-Type Natriuretic Peptide 10 0-100 pg/mL Lipase 21 16-77 U/L Current Medications Medications (Trade) Dose Ordered Sig/Angelic Route PRN Reason Start Time Stop Time Status Last Admin Dose Admin Acetaminophen (TYLenol 325MG TAB) 650 mg Q4H PRN PO TEMPERATURE GREATER THAN 101.5 03/27/25 17:00 04/26/25 16:59 Acetaminophen (TYLenol 325MG TAB) 650 mg Q6H PRN PO MILD PAIN (1-3) 03/27/25 17:00 04/26/25 16:59 03/28/25 05:46 650 MG Apixaban (EliquIS) 5 mg BID PO 03/27/25 21:00 04/26/25 20:59 03/28/25 09:08 5 MG Dextrose (D50w) 50 ml AD PRN IV HYPOGLYCEMIA PROTOCOL 03/27/25 19:30 04/26/25 19:29 Glucagon (Glucagon 1mg Kit) 1 mg AD PRN IM HYPOGLYCEMIA PROTOCOL 03/27/25 19:30 04/26/25 19:29 Insulin Human Regular (humuLIN R 100 UNIT/ML 3ML) INSULIN SLIDING SCAL... ACHS SQ 03/27/25 21:00 04/26/25 20:59 Magnesium Sulfate 50 ml @ 0 mls/hr PROTOCOL PRN IV MAGNESIUM PROTOCOL 03/27/25 19:30 04/26/25 19:29 Metoprolol Tartrate (loprESSOR) 25 mg BID PO 03/27/25 21:00 04/26/25 20:59 03/28/25 09:08 25 MG Ondansetron HCl (zoFRAN 4MG INJ) 4 mg Q6H PRN IVP NAUSEA/VOMITING 03/27/25 17:00 04/26/25 16:59 Potassium Chloride 100 ml @ 100 mls/hr AD PRN IV POTASSIUM PROTOCOL 03/27/25 19:30 04/26/25 19:29 Potassium Chloride (K-Dur/Klor-Con 20meq) 20 meq AD PRN PO POTASSIUM PROTOCOL 03/27/25 19:30 04/26/25 19:29 Potassium Chloride (KCl 10% Elixir 20meq/15ml) 20 meq AD PRN PO POTASSIUM PROTOCOL 03/27/25 19:30 04/26/25 19:29 DIAGNOSTICS / RADIOLOGY: [ ] ASSESSMENT: Palpitations, etiology to be determined (history of AFib, currently in normal sinus rhythm) Shortness of breath, ruled out pulmonary embolism Left lower extremity deep vein thrombosis (DVT), recently diagnosed History of atrial fibrillation Hypertension Type 2 diabetes mellitus Angina Asthma Obstructive sleep apnea Bradycardia, likely secondary to labetalol Scheduled left lower extremity venous intervention (pending details) ] PLAN: [Ruled out pulmonary embolism: -Order CT angiogram of the chest (CT PE protocol) to evaluate for pulmonary e mbolism-unremarkable Cardiac monitoring: -Continue to telemetry for continuous cardiac monitoring given history of AFib, palpitations, and bradycardia. -Serial EKGs and rhythm monitoring. Symptom management: -Monitor and treat chest pain and palpitations as indicated. -Supplemental oxygen if hypoxic. -Monitor for signs of heart failure or acute coronary syndrome. Medication review: -Hold labetalol due to reported bradycardia. -Review all current medications for potential interactions or side effects. Anticoagulation: -Continue Eliquis as indicated for DVT and AFib, but coordinate with interventional radiology/vascular surgery regarding timing of discontinuation prior to scheduled procedure (per instructions, stop 24 hours before procedure). Pre-procedure coordination: -Confirm details of scheduled left lower extremity venous procedure with Dr. Chen. -Ensure appropriate julio cesar-procedural anticoagulation management. Laboratory and diagnostic workup: -CBC, CMP, troponin, BNP, D-dimer, PT/INR, aPTT. -Echocardiogram -Lower extremity venous duplex bilaterally. Chronic disease management: -Monitor and control blood pressure and blood glucose. -Continue home medications as appropriate, adjusting for current clinical status. Consultations: -Cardiology for arrhythmia and bradycardia management. -Vascular surgery/interventional radiology for DVT procedure planning, will ask cardiology if ok. Patient education and discharge planning: -Educate patient on signs and symptoms of worsening DVT, PE, or arrhythmia. -Discharge planning to include follow-up with cardiology and vascular surgery. Supportive care: -GI prophylaxis -repeat labs tomorrow Case discussed with Dr. Francois, above plan was formulated ATTESTATION BY PHYSICIAN I have seen and examined the patient. I reviewed the documentation, medical decision making, and treatment plan as noted by the mid-level provider above. I agree with the findings and plan of care. Milena Olivera MD, [facility] Mar 28, 2025 15:05
--- NOTE | 2025-03-28 20:00 | HMCSR ---
APPROVED REPORT EXAM: Two-dimensional and M-mode echocardiogram with Doppler and color Doppler. INDICATION ICD: Palpitations 2D Dimensions RVDd4.6 cmLVEF(%)61.0 (>50%)LVED Vol(simp.)133.0 mL IVSd0.9 (0.7-1.1cm)FS(%)33 %LVES Vol(simp.)63.0 mL LVDd4.8 (3.8-5.6cm)LA (2D)3.5 (1.6-4.0cm)LVEF(%, simp.)53 % PWd1.0 (0.7-1.1cm)Ao Root(2D)2.3 (2.0-3.7cm)LA ESV INDEX (BP)38.45 mL/m2 LVDs3.2 (2.5-4.0cm)LVOT diam1.9 (1.8-2.4cm) IVC diam1.1 cm Deformation Strain Apical 4-16.4 % Apical 2-14.1 % Apical 3-13.6 % Global Strain-14.7 % M-Mode Dimensions EPSS0.6 cm LA (MM)4.1 (1.6-4.0cm) Ao Root(MM)2.5 (2.0-3.7cm) Aortic Valve AoV Vmax1.9 m/Marija Peak GR14.0 mmHgLVOT Vmax1.0 m/s AoV VTI0.4 mAo Mean GR7.5 mmHgLVOT VTI0.24 m AISHA (VMAX)1.57 cm2AVA (VTI) 1.8 cm2 Mitral Valve MV E Vmax85.8 cm/sDECEL Dbqx557 ms MV A Vmax99.4 cm/sP 1/2 T51 ms E/A ratio0.9MVA (PHT)4.3 cm2 TDI E/E' Xvwlem15.1E/E' [id number] Medial E' Peak V7.70 cm/sLateral E' Peak V6.80 cm/s Pulmonary Valve PV Vmax0.8 m/sPV VTI0.21 mPV Mean GR1.8 mmHg PV Peak GR2.8 mmHg Tricuspid Valve TR Vmax2.8 m/sRAP (EST) 3 [id number] mmHg TR Peak GR31.9 mmHg Left Ventricle The left ventricle is normal size. There is normal LV segmental wall motion. There is normal left radha tricular wall thickness. LVEF is 55-60%. Indeterminate diastolic dysfunction. Right Ventricle The right ventricle is mildly dilated. The right ventricular systolic function is normal. Atria The left atrium size is mildly dilated. The right atrium size is normal. Aortic Valve The aortic valve is normal in structure. No aortic regurgitation is present. There is no aortic valvu lar stenosis. Mitral Valve The mitral valve is normal in structure. Mitral regurgitation is trace. There is no mitral valve sten osis. Tricuspid Valve The tricuspid valve is normal in structure. There is mild tricuspid valve regurgitation noted. Pulmonic Valve The pulmonary valve is normal in structure. There is no pulmonic valvular regurgitation. Great Vessels The aortic root is normal in size. The IVC is normal in size and collapses >50% with inspiration. Pericardium There is no pericardial effusion. Conclusion LVEF is 55-60%. The right ventricle is mildly dilated. The left atrium size is mildly dilated.
--- NOTE | 2025-03-28 20:04 | NUR ---
DR PRITCHETT AT BEDSIDE.
--- NOTE | 2025-03-28 20:16 | CONS ---
I am asked to see the patient for complaints of palpitations. The patient says she feels her heart beating hard, like if she had been exercising. This would not bother her except that she also stood up and experienced vertigo, a condition she has had before, and felt that she may fall. She is on Eliquis so she sought attention. She also experiences occasional retrosternal chest pressure and she has asthma so finds it difficult to differentiate between pulmonary and cardiac causes of dyspnea on exertion. Apparently she has been more short of breath recently. I reviewed office records and found that the patient is under evaluation for May-Thurner syndrome for most of the last year and was lost to follow up for a while, now reestablished, with a plan for venogram. The patient also has a history of peripheral arterial disease, previous coronary angiogram showing nonobstructive coronary disease, and mild systolic heart failure with 50% ejection fraction. She has complained of palpitations previously. Nuclear stress tests have been inaccurate in the past. Patient is morbidly obese and has a history of obstructive sleep apnea. She is a diabetic with dyslipidemia. Review of systems is negative for syncope or presyncope but she almost fell when she experienced vertigo. She has not had paresthesia or hyperventilation syndromes symptoms but has experienced a sense of her heart beating hard. She denies any abrupt onset or termination of the sense of tachycardia, and she denies orthopnea or paroxysmal nocturnal dyspnea. She denies ulcers or GI bleeding or dyspepsia. She denies claudication but does have chronic leg pain from edema which is thought to be from May-Thurner syndrome. Physical exam shows a morbidly obese patient who is difficult to evaluate for neck vein distention because of obesity. Carotid volume is normal. Chest is clear. S1 and S2 are normal, no murmur, currently regular rhythm. Abdomen is protuberant and bowel sounds are normal. Extremities are notable for 2+ bipedal edema and integument is notable for hyperpigmentation/stasis dermatitis over the lower extremities [id number]. Troponin and BNP are normal. ECG shows only sinus tachycardia without ST-T abnormalities or QRS abnormalities. Chest x-ray is clear. Impression and plan: The only reason I can see to admit the patient, which I think is a legitimate reason, is that the patient is anticoagulated and thought she may fall because of her vertigo. I do not see any other unstable cardiac issue at this time, but the patient will be in a safe place tonight if we admit her and Dr. Echevarria can evaluate her tomorrow to decide whether to do his venogram during this hospitalization or not. Patient History: Cardiovascular disease FATHER (STROKE), , Age: 65 (CHF) Completed stroke FATHER (STROKE), , Age: 65 Diabetes mellitus MOTHER (OLD AGE), , Age: 82 Hypertension FATHER (STROKE), , Age: 64 BROTHER BROTHER SISTER No Family History of: Carcinomas Vitals/Labs Vital Signs Date Time Temp Pulse Resp B/P (MAP) Pulse Ox O2 Delivery O2 Flow Rate FiO2 03/28/25 16:00 97.5 69 15 171/52 100 Nasal Cannula 2.0 03/28/25 09:47 21 Laboratory Tests 03/28/25 07:19 Allergies: Coded Allergies: No Known Drug Allergies (Unverified Allergy, 12/27/11) Medications Current Medications Acetaminophen 650 mg Q4H PRN PO; Start 03/27/25 at 17:00; Stop 04/26/25 at 16:59 Acetaminophen 650 mg Q6H PRN PO Last administered on 03/28/25at 16:54; Start 03/27/25 at 17:00; Stop 04/26/25 at 16:59 Ondansetron HCl 4 mg Q6H PRN IVP; Start 03/27/25 at 17:00; Stop 04/26/25 at 16:59 Metoprolol Tartrate 25 mg BID PO Last administered on 03/28/25at 09:08; Start 03/27/25 at 21:00; Stop 04/26/25 at 20:59 Apixaban 5 mg BID PO Last administered on 03/28/25at 09:08; Start 03/27/25 at 21:00; Stop 04/26/25 at 20:59 Potassium Chloride 100 ml @ 100 mls/hr AD PRN IV; Start 03/27/25 at 19:30; Stop 04/26/25 at 19:29 Potassium Chloride 20 meq AD PRN PO; Start 03/27/25 at 19:30; Stop 04/26/25 at 19:29 Potassium Chloride 20 meq AD PRN PO; Start 03/27/25 at 19:30; Stop 04/26/25 at 19:29 Insulin Human Regular INSULIN SLIDING SCAL... ACHS SQ; Start 03/27/25 at 21:00; Stop 04/26/25 at 20:59 Dextrose 50 ml AD PRN IV; Start 03/27/25 at 19:30; Stop 04/26/25 at 19:29 Glucagon 1 mg AD PRN IM; Start 03/27/25 at 19:30; Stop 04/26/25 at 19:29 Magnesium Sulfate 50 ml @ 0 mls/hr PROTOCOL PRN IV; Start 03/27/25 at 19:30; Stop 04/26/25 at 19:29 Iohexol 35,000 mg STK-MED ONCE IV; Start 03/27/25 at 20:35; Stop 03/27/25 at 20:35; Status DC GLORIA PRITCHETT MD Mar 28, 2025 20:16
[2025-03-28] MEDS: MAGNESIUM 2GM PREMIX 50ML 50 ML IV PRN (21:24)
[2025-03-29] VITALS (9 sets, daily range): BP systolic 132–160; BP diastolic 75–86; PULSE 76–94; RESP 19–20; TEMP 97.7–98.2; O2SAT 96–97
--- NOTE | 2025-03-29 | NUR ---
TRANSFER FROM ED HOLDING PATIENT TRANSFERRED FROM ED HOLDING TO ROOM 305. PATIENT ALERT, ORIENTED, AND ABLE TO MAKE NEEDS KNOWN. ORIENTED TO CALL LIGHT AND UNIT FALL POLICIES.
--- NOTE | 2025-03-29 06:21 | HMCIMG ---
EXAMINATION: SPECTRAL DOPPLER ULTRASOUND EXAMINATION OF THE BILATERAL LOWER EXTREMITY VEINS. CLINICAL HISTORY: History of DVT in the left leg. COMPARISON: Duplex lower extremity veins dated 12/19/2023. TECHNIQUE: Real-time ultrasound scan of the veins of the bilateral lower extremity with color Doppler flow, spectral waveform analysis and compression. FINDINGS: DEEP VEINS: The common femoral, superficial femoral, and popliteal veins are echolucent and compressible. There is normal color Doppler flow throughout. The visualized calf veins appear patent. SUPERFICIAL VEINS: The greater saphenous veins are patent and compressible. SOFT TISSUES: No popliteal fossa cyst or other abnormalities. IMPRESSION: No deep venous thrombosis evident in the bilateral lower extremity. No superficial thrombophlebitis in the bilateral lower extremity. /[place]
--- NOTE | 2025-03-29 14:24 | NUR ---
DCP: HOME Pt currently lives alone in her home. Pt has a walker, cane, and wheelchair that she uses at home to ambulate. Pt has 30hrs of provider services through the [facility] and they assist with all ADLs, home management, and meals. PCP is Dr. Ronal Manley and uses [facility] for any RX needs. At [place] pt will want to go home and family can assist with transportation. Addendum: 03/29/25 at 1427 by ZACHERY ELKINS SS Amended: Links added.
--- NOTE | 2025-03-29 17:14 | PN ---
[facility] PROGRESS NOTE Date of Service: Mar 29, 2025 Time of Service: 15:22 SUBJECTIVE: [64-year-old female admitted due to palpitations and shortness of breaths. She was recently diagnosed with DVT to the left lower extremities. On admission, she was complaining of shortness of breaths and pain to the left neck radiating to her mid back, she describes pain as shooting pain even at rest. A D-dimer was done which showed 4819. A CT PE protocol was ordered which showed no pulmonary embolism, subsegmental atelectasis and fibrotic changes in the bilateral lower lobes noted. We are still pending Cardiology recommendation we will continue current management at this time. ] 03/29/2025: Today the patient reports no episodes of palpitations or shortness of breath or chest pain but she complains feeling dizzy when she stands up suddely from sitting position. Waiting for Cardiology consulation by Dr. Echevarria. ECG shows normal sinus rhythm without any ST evelations or QRS abnormalities. ECHO was done on 03/28/2025 - shows mild dilation of left atrium and right ventricle and EF is 55-60%. Blood pressure today is 139/86 mmhg. Troponin and BNP are in normal range. Hgb - 11.4 ( 11.7 at the time of evaluation) MPV - 10.7 Albumin - 3.2 Magnesium - 1.6 blood glucose - 114 coagulation study - APTT is 16.2 and D Dimer is 4819 Chest Xray - clear chest CT - no evidence of pulmonay embolism segmental atelectasis and fibrotic changes in the lower lobes. urine anaylsis - patient has asymptomatic bacteruria and has positive leucocyte esterase (25), nitrate, urine RBC and WBC. urine culture - gram negative rods REVIEW OF SYSTEMS CONSTITUTIONAL: Denies fevers, chills, or night sweats. No unintentional weight loss reported. NEUROLOGICAL: Denies headache, amaurosis fugax, motor weakness, sensory deficit, gait abnormalities, or tremors.Complains of vertigo/spinning sensation when standing suddenly from sitting position. ENT: No hearing loss, otalgia, otorrhea, rhinitis, rhinorrhea, hoarseness, or sore throat. CARDIOVASCULAR: Denies any exertional angina, dyspnea on exertion, orthopnea, palpitaitons, paroxysmal nocturnal dyspnea, life-threatening arrhythmias, claudication. PULMONARY: Denies any shortness of breath, cough, phlegm/sputum, hemoptysis, pleuritic chest pain. SLEEP: Denies morning headaches, daytime somnolence or napping. Denies difficulty falling asleep, staying asleep, waking from sleep. Denies knowledge of snoring. HEMATOLOGIC: Denies thrombophilia, or coagulopathy/bleeding disorders. Has a history of deep vein thrombosis which is diagnosed 3 weeks ago. DERMATOLOGIC: hyperpigmentation of lower extremities due to venous stasis. PHYSICAL EXAM GENERAL APPEARANCE: The patient is awake, alert, and oriented, in no acute cardiopulmonary distress. NEUROLOGICAL: Cranial nerves II-XII grossly intact. Motor is 5/5 in bilateral upper and lower extremities proximal to distal. No sensory deficits. HEENT: Face is symmetric. Pupils are equal and reactive. Extraocular movements are intact. NECK: Supple. No JVD. No thyromegaly. No submental, submandibular, pre-/postauricular, occipital or supraclavicular lymphadenopathy. CHEST: Normal chest expansion. No Telemetry. LUNGS: Absence of any rales, rhonchi or any wheezing. CARDIOVASCULAR: Regular. S1 and S2 normal. No appreciable rubs, murmurs or gallops. ABDOMEN: Soft, nontender, and nondistended. There is no rebound, voluntary guarding, or rigidity. : Deferred. No You. EXTREMITIES: Non-edematous and not cyanotic. No clubbing. Good capillary refill. SKIN: No skin breakdown. Vital Signs (last 8hr) Date Time Temp Pulse Resp B/P (MAP) Pulse Ox O2 Delivery O2 Flow Rate FiO2 03/29/25 12:00 97.7 80 19 138/77 97 Room Air 21 03/29/25 10:54 94 150/81 Room Air 21 03/29/25 10:52 76 132/75 Room Air 21 03/29/25 10:50 84 143/80 Room Air 21 03/29/25 08:00 96 Room Air* 0 03/29/25 07:47 98.2 78 19 139/86 96 Room Air 21 LABS: Laboratory: Test 03/28/25 21:39 03/28/25 07:19 03/27/25 19:23 Range/Units Whole Blood Glucose 114 H 70-110 MG/DL White Blood Count 5.5 4.8-10.8 K/uL Red Blood Count 4.15 4.00-5.50 MIL/uL Hemoglobin 11.4 L 12.0-16.0 g/dL Hematocrit 35.0 L 36-48 % Mean Corpuscular Volume 84.3 79-99 fL Mean Corpuscular Hemoglobin 27.5 27.0-33.0 pg Mean Corpuscular Hemoglobin Concent 32.6 32.0-36.0 g/dL Red Cell Distribution Width 13.9 11.0-15.5 % Platelet Count 170 130-400 K/uL Mean Platelet Volume 10.7 H 7.5-10.5 fL Nucleated Red Blood Cells 0.0 0.0-0.19 % Sodium Level 142 136-145 mmol/L Potassium Level 3.9 3.5-5.1 mmol/L Chloride Level 106 101-111 mmol/L Carbon Dioxide Level 27 21-32 mmol/L Blood Urea Nitrogen 13 7-18 mg/dL Creatinine 0.6 0.5-1.0 mg/dL Glomerular Filtration Rate Calc 100 >90 mL/min Random Glucose 106 H 70-105 mg/dL Total Calcium 8.7 8.5-10.1 mg/dL Magnesium Level 1.60 L 1.80-2.40 mg/dL Total Bilirubin 0.5 0.2-1.0 mg/dL Aspartate Amino Transf (AST/SGOT) 19 10-37 U/L Alanine Aminotransferase (ALT/SGPT) 30 12-78 U/L Alkaline Phosphatase 104 50-136 U/L Total Protein 6.5 6.0-8.3 g/dL Albumin 3.2 L 3.5-5.0 g/dL Prothrombin Time 10.8 9.6-11.6 SEC Prothromb Time International Ratio 1.02 0.85-1.15 Activated Partial Thromboplast Time 16.2 L 26.3-35.5 SEC D-Dimer Quantitative (PE/DVT) 4819 *H 0-500 ng/mL Current Medications Medications (Trade) Dose Ordered Sig/Angelic Route PRN Reason Start Time Stop Time Status Last Admin Dose Admin Acetaminophen (TYLenol 325MG TAB) 650 mg Q4H PRN PO TEMPERATURE GREATER THAN 101.5 03/27/25 17:00 04/26/25 16:59 Acetaminophen (TYLenol 325MG TAB) 650 mg Q6H PRN PO MILD PAIN (1-3) 03/27/25 17:00 04/26/25 16:59 03/28/25 21:24 650 MG Apixaban (EliquIS) 5 mg BID PO 03/27/25 21:00 04/26/25 20:59 03/29/25 08:06 5 MG Dextrose (D50w) 50 ml AD PRN IV HYPOGLYCEMIA PROTOCOL 03/27/25 19:30 04/26/25 19:29 Glucagon (Glucagon 1mg Kit) 1 mg AD PRN IM HYPOGLYCEMIA PROTOCOL 03/27/25 19:30 04/26/25 19:29 Insulin Human Regular (humuLIN R 100 UNIT/ML 3ML) INSULIN SLIDING SCAL... ACHS SQ 03/27/25 21:00 04/26/25 20:59 Magnesium Sulfate 50 ml @ 0 mls/hr PROTOCOL PRN IV MAGNESIUM PROTOCOL 03/27/25 19:30 04/26/25 19:29 03/28/25 21:24 25 MLS/HR Metoprolol Tartrate (loprESSOR) 25 mg BID PO 03/27/25 21:00 04/26/25 20:59 03/29/25 08:05 25 MG Morphine Sulfate (morPHINE 2MG SYG) 2 mg Q4H PRN IVP SEVERE PAIN (7-10) 03/29/25 01:30 04/05/25 01:29 03/29/25 01:15 2 MG Ondansetron HCl (zoFRAN 4MG INJ) 4 mg Q6H PRN IVP NAUSEA/VOMITING 03/27/25 17:00 04/26/25 16:59 Potassium Chloride 100 ml @ 100 mls/hr AD PRN IV POTASSIUM PROTOCOL 03/27/25 19:30 04/26/25 19:29 Potassium Chloride (K-Dur/Klor-Con 20meq) 20 meq AD PRN PO POTASSIUM PROTOCOL 03/27/25 19:30 04/26/25 19:29 Potassium Chloride (KCl 10% Elixir 20meq/15ml) 20 meq AD PRN PO POTASSIUM PROTOCOL 03/27/25 19:30 04/26/25 19:29 DIAGNOSTICS / RADIOLOGY: [ ] ASSESSMENT: Palpitations, etiology to be determined (history of AFib, currently in normal sinus rhythm) Shortness of breath, ruled out pulmonary embolism Left lower extremity venous stasis - scheduled for lower extremity venous procedure with Dr. Chen. possible Arthritis to be ruled out History of atrial fibrillation orthostatic dizzinesss Hypertension POA Type 2 diabetes mellitus POA Angina Asthma Obstructive sleep apnea Bradycardia, likely secondary to labetalol PLAN: Arrythmia: Atrial fibrillation?PAC?PVC?VT - patient is on telemetry for continuous cardiac monitoring given history of AFib, palpitations, and bradycardia. -Serial EKGs and rhythm monitoring. -Continue Eliquis as indicated for AFib, but coordinate with interventional radiology/vascular surgery regarding timing of discontinuation prior to sched uled procedure (per instructions, stop 24 hours before procedure). -Supplemental oxygen if hypoxic. -Monitor for signs of heart failure or acute coronary syndrome. -Cardiology consultation with for arrhythmia and bradycardia management. - ECHO - no thrombi in left atrium, EF is 55-60%. Orthostatic hypotension: - ordered orthostatic blood pressure assessment. HTN and type 2 DM: -Hold labetalol due to reported bradycardia -Monitor and control blood pressure and blood glucose. -Continue home medications as appropriate, adjusting for current clinical status. Possible Arthritis to be ruled out - followup with x ray of right hand and left shoulder. - pain medication as needed - follow up with inflammatory markers Chest pain to rule out pulmonary embolism and history of DVT: - CT angiogram of the chest (CT PE protocol) to evaluate for pulmonary embolism- unremarkable - D Dimer is 4819 - no evidence of deep vein thrombosis in the lower extremities - Chest pain treated with morphine sulfate 2mg. - Troponin and BNP are in normal range. - EKG shows normal sinus rhythm without any ST elevations and QRS abnormalities. Patient education: -Educate patient on signs and symptoms of worsening DVT, PE, or arrhythmia. Supportive care: -GI prophylaxis -repeat labs tomorrow ATTESTATION BY PHYSICIAN I have seen and examined the patient. I reviewed the documentation, medical decision making, and treatment plan as noted by the resident provider above. I agree with the findings and plan of care. Manuel Terrell MD, LAKSHMI MD Mar 29, 2025 17:14 ARMIN MORALEZ MD Mar 29, 2025 18:01
--- NOTE | 2025-03-29 23:23 | HMCIMG ---
EXAM: CR Left Shoulder, 2 views. CLINICAL HISTORY: Arthritis. COMPARISON: Radiograph of the left shoulder dated 08/07/2022. FINDINGS: No acute fracture or aggressive appearing osseous lesion. Mild to moderate osteoarthritis in the acromioclavicular and glenohumeral joints. Inferiorly projecting osteophytes at the acromioclavicular joint. There is a large inferior medial osteophyte at the humeral head. Mild osteopenia. The soft tissues are unremarkable. IMPRESSION: No acute bony abnormality is evident. Mild osteopenia. Mild to moderate osteoarthritis. No gross interval changes. /[place]
--- NOTE | 2025-03-29 23:25 | HMCIMG ---
EXAM: CR Right Hand, 3 views. CLINICAL HISTORY: Arthritis. COMPARISON: None provided. FINDINGS: No acute fracture or aggressive appearing osseous lesion. Mild osteoarthritis is evident. The soft tissues are unremarkable. IMPRESSION: No acute bony abnormality is evident. Mild osteoarthritis. /[place]
[2025-03-30] VITALS (7 sets, daily range): BP systolic 130–166; BP diastolic 72–93; PULSE 79–112; RESP 20; TEMP 97.8–98.5; O2SAT 96
[2025-03-30 05:00] LABS: IMMATURE GRANULOCYTE ABSOLUTE 0.01 K/uL (0-1); NUCLEATED RED BLOOD CELLS 0.0 % (0.0-0.19); PLATELET COUNT (AUTO) 182 K/uL (130-400); RED BLOOD CELL COUNT(AUTO) 4.29 MIL/uL (4.00-5.50); RED CELL DISTRIBUTION WIDTH 13.8 % (11.0-15.5); WHITE BLOOD COUNT (AUTO) 5.4 K/uL (4.8-10.8)
[2025-03-30 05:17] LABS: CREATININE 0.6 mg/dL (0.5-1.0); GLOMERULAR FILTR. RATE CALC 100.0 mL/min (>90); GLUCOSE,RANDOM 103.0 mg/dL (70-105); SODIUM SERUM 141.0 mmol/L (136-145); UREA NITROGEN, BLOOD 13.0 mg/dL (7-18)
[2025-03-30] MEDS ORDERED: METO25 PO (07:01)
[2025-03-30] MEDS ORDERED: LEVO-70 PO (07:02)
--- NOTE | 2025-03-30 07:11 | DS ---
Discharge Summary Hospital Course Summary: [64-year-old female admitted due to palpitations and shortness of breaths. She was recently diagnosed with DVT to the left lower extremities. On admission, she was complaining of shortness of breaths and pain to the left neck radiating to her mid back, she describes pain as shooting pain even at rest. A D-dimer was done which showed 4819. A CT PE protocol was ordered which showed no pulmonary embolism, subsegmental atelectasis and fibrotic changes in the bilateral lower lobes noted. We are still pending Cardiology recommendation we will continue current management at this time. ] 03/29/2025: Today the patient reports no episodes of palpitations or shortness of breath or chest pain . ECG shows normal sinus rhythm without any ST evelations or QRS abnormalities. ECHO was done on 03/28/2025 - shows mild dilation of left atrium and right ventricle and EF is 55-60%. Blood pressure today is 139/86 mmhg. Troponin and BNP are in normal range. Hgb - 11.4 ( 11.7 at the time of evaluation) MPV - 10.7 Albumin - 3.2 Magnesium - 1.6 blood glucose - 114 coagulation study - APTT is 16.2 and D Dimer is 4819 Chest Xray - no significant acute changes chest CT - no evidence of pulmonay embolism segmental atelectasis and fibrotic changes in the lower lobes. Urinalysis shows urinary tract infection with E coli and the patient will be discharged with levofloxacin for 7 days 03/30/2025 - patient is alert awake and oriented to time place person, patient reports mild pain in the right hand due to osteoarthritis. Patient is otherwise asymptomatic and is willing to go home, patient is provided with all the resources days also educated to follow up with primary care and Cardiology on discharge. Patient's medication also has been reviewed and labetalol has been stopped due to side effects of bradycardia and metoprolol has been started and prescribed. Patient is deemed stable for discharge. Hand Lens Polisher(s): CONSULTATION REPORT Name: KIM SOTELO Acct: [id number] MR: [id number] : 1960 Admit Date: 03/27/25 GLORIA PRITCHETT MD [place] [id number] [place] [id number] I am asked to see the patient for complaints of palpitations. The patient says she feels her heart beating hard, like if she had been exercising. This would not bother her except that she also stood up and experienced vertigo, a condition she has had before, and felt that she may fall. She is on Eliquis so she sought attention. She also experiences occasional retrosternal chest pressure and she has asthma so finds it difficult to differentiate between pulmonary and cardiac causes of dyspnea on exertion. Apparently she has been more short of breath recently. I reviewed office records and found that the patient is under evaluation for May-Thurner syndrome for most of the last year and was lost to follow up for a while, now reestablished, with a plan for venogram. The patient also has a history of peripheral arterial disease, previous coronary angiogram showing nonobstructive coronary disease, and mild systolic heart failure with 50% ejection fraction. She has complained of palpitations previously. Nuclear stress tests have been inaccurate in the past. Patient is morbidly obese and has a history of obstructive sleep apnea. She is a diabetic with dyslipidemia. Review of systems is negative for syncope or presyncope but she almost fell when she experienced vertigo. She has not had paresthesia or hyperventilation syndromes symptoms but has experienced a sense of her heart beating hard. She denies any abrupt onset or termination of the sense of tachycardia, and she denies orthopnea or paroxysmal nocturnal dyspnea. She denies ulcers or GI bleeding or dyspepsia. She denies claudication but does have chronic leg pain from edema which is thought to be from May-Thurner syndrome. Physical exam shows a morbidly obese patient who is difficult to evaluate for neck vein distention because of obesity. Carotid volume is normal. Chest is clear. S1 and S2 are normal, no murmur, currently regular rhythm. Abdomen is protuberant and bowel sounds are normal. Extremities are notable for 2+ bipedal edema and integument is notable for hyperpigmentation/stasis dermatitis over the lower extremities [id number]. Troponin and BNP are normal. ECG shows only sinus tachycardia without ST-T abnormalities or QRS abnormalities. Chest x-ray is clear. Impression and plan: The only reason I can see to admit the patient, which I think is a legitimate reason, is that the patient is anticoagulated and thought she may fall because of her vertigo. I do not see any other unstable cardiac issue at this time, but the patient will be in a safe place tonight if we admit her and Dr. Echevarria can evaluate her tomorrow to decide whether to do his venogram during this hospitalization or not. Patient History: Cardiovascular disease FATHER (STROKE), , Age: 65 (CHF) Completed stroke FATHER (STROKE), , Age: 65 Diabetes mellitus MOTHER (OLD AGE), , Age: 82 Hypertension FATHER (STROKE), , Age: 64 BROTHER BROTHER SISTER No Family History of: Carcinomas Vitals/Labs Vital Signs Date Time Temp Pulse Resp B/P (MAP) Pulse Ox O2 Delivery O2 Flow Rate FiO2 03/28/25 16:00 97.5 69 15 171/52 100 Nasal Cannula 2.0 03/28/25 09:47 21 Laboratory Tests 03/28/25 07:19 Allergies: Coded Allergies: No Known Drug Allergies (Unverified Allergy, 12/27/11) Medications Current Medications Acetaminophen 650 mg Q4H PRN PO; Start 03/27/25 at 17:00; Stop 04/26/25 at 16:59 Acetaminophen 650 mg Q6H PRN PO Last administered on 03/28/25at 16:54; Start 03/27/25 at 17:00; Stop 04/26/25 at 16:59 Ondansetron HCl 4 mg Q6H PRN IVP; Start 03/27/25 at 17:00; Stop 04/26/25 at 16:59 Metoprolol Tartrate 25 mg BID PO Last administered on 03/28/25at 09:08; Start 03/27/25 at 21:00; Stop 04/26/25 at 20:59 Apixaban 5 mg BID PO Last administered on 03/28/25at 09:08; Start 03/27/25 at 21:00; Stop 04/26/25 at 20:59 Potassium Chloride 100 ml @ 100 mls/hr AD PRN IV; Start 03/27/25 at 19:30; Stop 04/26/25 at 19:29 Potassium Chloride 20 meq AD PRN PO; Start 03/27/25 at 19:30; Stop 04/26/25 at 19:29 Potassium Chloride 20 meq AD PRN PO; Start 03/27/25 at 19:30; Stop 04/26/25 at 19:29 Insulin Human Regular INSULIN SLIDING SCAL... ACHS SQ; Start 03/27/25 at 21:00; Stop 04/26/25 at 20:59 Dextrose 50 ml AD PRN IV; Start 03/27/25 at 19:30; Stop 04/26/25 at 19:29 Glucagon 1 mg AD PRN IM; Start 03/27/25 at 19:30; Stop 04/26/25 at 19:29 Magnesium Sulfate 50 ml @ 0 mls/hr PROTOCOL PRN IV; Start 03/27/25 at 19:30; Stop 04/26/25 at 19:29 Iohexol 35,000 mg STK-MED ONCE IV; Start 03/27/25 at 20:35; Stop 03/27/25 at 20:35; Status DC GLORIA PRITCHETT MD Mar 28, 2025 20:16 Electronically Signed by: GLORIA PRITCHETT MD03/28/252015 Electronically Co-Signed by: Procedure(s): PATIENT: KIM SOTELO MR#: [id number] : 1960 SEX: F AGE: 64 LOCATION: [facility] ORDER 08 [facility]US: [facility] REPORT#: [id number] SERVICE 05 REASON: Arthritis ORDERING PHYSICIAN: ARMIN MORALEZ MD PROCEDURE: SHOL 2V LT - SHOULDER COMP 2+VWS LT EXAM: CR Left Shoulder, 2 views. CLINICAL HISTORY: Arthritis. COMPARISON: Radiograph of the left shoulder dated 08/07/2022. FINDINGS: No acute fracture or aggressive appearing osseous lesion. Mild to moderate osteoarthritis in the acromioclavicular and glenohumeral joints. Inferiorly projecting osteophytes at the acromioclavicular joint. There is a large inferior medial osteophyte at the humeral head. Mild osteopenia. The soft tissues are unremarkable. IMPRESSION: No acute bony abnormality is evident. Mild osteopenia. Mild to moderate osteoarthritis. No gross interval changes. /[place] DICTATED BY: LOVELY GUTIERRES Jr., MD DATE: 03/30/2521 ELECTRONICALLY SIGNED BY: LOVELY GUTIERRES Jr., MD DATE: 03/30/2521 PATIENT: KIM SOTELO MR#: [id number] : 1960 SEX: F AGE: 64 LOCATION: [facility] ORDER 08 STATUS: ADM IN REPORT#: [id number] SERVICE 05 REASON: Arthritis ORDERING PHYSICIAN: ARMIN MORALEZ MD PROCEDURE: HAND 3V RT - HAND 3+VWS RT EXAM: CR Right Hand, 3 views. CLINICAL HISTORY: Arthritis. COMPARISON: None provided. FINDINGS: No acute fracture or aggressive appearing osseous lesion. Mild osteoarthritis is evident. The soft tissues are unremarkable. IMPRESSION: No acute bony abnormality is evident. Mild osteoarthritis. /[place] DICTATED BY: LOVELY GUTIERRES Jr., MD DATE: 03/30/2523 ELECTRONICALLY SIGNED BY: LOVELY GUTIERRES Jr., MD DATE: 03/30/2523 PATIENT: KIM SOTELO MR#: [id number] : 1960 SEX: F AGE: 64 LOCATION: [facility] ORDER 1704 STATUS: ADM IN REPORT#: [id number] SERVICE 58 REASON: palpitation ORDERING PHYSICIAN: NORMA GRUBBS PROCEDURE: ECHO CMP - ECHO 2-D COMPLETE APPROVED REPORT EXAM: Two-dimensional and M-mode echocardiogram with Doppler and color Doppler. INDICATION ICD: Palpitations 2D Dimensions RVDd 4.6 cm LVEF(%) 61.0 (>50%) LVED Vol(simp.) 133.0 mL IVSd 0.9 (0.7-1.1cm) FS(%) 33 % LVES Vol(simp.) 63.0 mL LVDd 4.8 (3.8-5.6cm) LA (2D) 3.5 (1.6-4.0cm) LVEF(%, simp.) 53 % PWd 1.0 (0.7-1.1cm) Ao Root(2D) 2.3 (2.0-3.7cm) LA ESV INDEX (BP) 38.45 mL/m2 LVDs 3.2 (2.5-4.0cm) LVOT diam 1.9 (1.8-2.4cm) IVC diam 1.1 cm Deformation Strain Apical 4 -16.4 % Apical 2 -14.1 % Apical 3 -13.6 % Global Strain -14.7 % M-Mode Dimensions EPSS 0.6 cm LA (MM) 4.1 (1.6-4.0cm) Ao Root(MM) 2.5 (2.0-3.7cm) Aortic Valve AoV Vmax 1.9 m/s Ao Peak GR 14.0 mmHg LVOT Vmax 1.0 m/s AoV VTI 0.4 m Ao Mean GR 7.5 mmHg LVOT VTI 0.24 m AISHA (VMAX) 1.57 cm2 AISHA (VTI) 1.8 cm2 Mitral Valve MV E Vmax 85.8 cm/s DECEL Time 194 ms MV A Vmax 99.4 cm/s P 1/2 T 51 ms E/A ratio 0.9 MVA (PHT) 4.3 cm2 TDI E/E' Medial 11.1 E/E' Lateral 12.6 Medial E' Peak V 7.70 cm/s Lateral E' Peak V 6.80 cm/s Pulmonary Valve PV Vmax 0.8 m/s PV VTI 0.21 m PV Mean GR 1.8 mmHg PV Peak GR 2.8 mmHg Tricuspid Valve TR Vmax 2.8 m/s RAP (EST) 3 mmHg RVSP 34.9 mmHg TR Peak GR 31.9 mmHg Left Ventricle The left ventricle is normal size. There is normal LV segmental wall motion. There is normal left ventricular wall thickness. LVEF is 55-60%. Indeterminate diastolic dysfunction. Right Ventricle The right ventricle is mildly dilated. The right ventricular systolic function is normal. Atria The left atrium size is mildly dilated. The right atrium size is normal. Aortic Valve The aortic valve is normal in structure. No aortic regurgitation is present. There is no aortic valvular stenosis. Mitral Valve The mitral valve is normal in structure. Mitral regurgitation is trace. There is no mitral valve stenosis. Tricuspid Valve The tricuspid valve is normal in structure. There is mild tricuspid valve regurgitation noted. Pulmonic Valve The pulmonary valve is normal in structure. There is no pulmonic valvular regurgitation. Great Vessels The aortic root is normal in size. The IVC is normal in size and collapses >50% with inspiration. Pericardium There is no pericardial effusion. Conclusion LVEF is 55-60%. The right ventricle is mildly dilated. The left atrium size is mildly dilated. DICTATED BY: GLORIA PRITCHETT MD DATE: 03/28/25 114 ELECTRONICALLY SIGNED BY: GLORIA PRITCHETT MD DATE: 03/28/251999 PATIENT: KIM SOTELO MR#: [id number] : 1960 SEX: F AGE: 64 LOCATION: [facility] ORDER 190 STATUS: ADM IN [facility] REPORT#: [id number] SERVICE 6733 REASON: h/o DVT to left leg ORDERING PHYSICIAN: NORMA GRUBBS PROCEDURE: VENOUS ADEN - US VENOUS DOPPLER BILATERAL EXAMINATION: SPECTRAL DOPPLER ULTRASOUND EXAMINATION OF THE BILATERAL LOWER EXTREMITY VEINS. CLINICAL HISTORY: History of DVT in the left leg. COMPARISON: Duplex lower extremity veins dated 12/19/2023. TECHNIQUE: Real-time ultrasound scan of the veins of the bilateral lower extremity with color Doppler flow, spectral waveform analysis and compression. FINDINGS: DEEP VEINS: The common femoral, superficial femoral, and popliteal veins are echolucent and compressible. There is normal color Doppler flow throughout. The visualized calf veins appear patent. SUPERFICIAL VEINS: The greater saphenous veins are patent and compressible. SOFT TISSUES: No popliteal fossa cyst or other abnormalities. IMPRESSION: No deep venous thrombosis evident in the bilateral lower extremity. No superficial thrombophlebitis in the bilateral lower extremity. /[place] DICTATED BY: MACHELLE PANTOJA MD DATE: 03/29/25 0720 ELECTRONICALLY SIGNED BY: MACHELLE PANTOJA MD DATE: 03/29/25 07 PATIENT: KIM SOTELO MR#: [id number] : 1960 SEX: F AGE: 64 [facility] 1900 STATUS: ADM IN REPORT#: [id number] SERVICE 185 REASON: h/o left dvt, now with sob, r/o PE ORDERING PHYSICIAN: NORMA GRUBBS PROCEDURE: CHES PE - CT CHEST PE PROTOCOL WWO CONT EXAM: CTA Chest with and without Intravenous Contrast for PE evaluation CLINICAL HISTORY: Patient presents with shortness of breath and history of left lower extremity DVT. Rule out pulmonary embolism. TECHNIQUE: Axial CTA images of the chest with and without intravenous contrast using a pulmonary embolism protocol. Multiplanar reconstructed images were created and reviewed. CONTRAST: Administered intravenously. COMPARISON: Chest radiograph dated March 27, 2025. FINDINGS: PULMONARY ARTERIES: No evidence of central or segmental pulmonary embolism. AORTA: No evidence of thoracic aortic aneurysm or dissection. Atherosclerotic vascular calcifications are noted. LUNGS: Subsegmental atelectasis and few fibrotic strands in the bilateral lower lobes. No pulmonary mass. PLEURAL SPACES: No pleural effusion. No pneumothorax. HEART: Heart size is within normal limits. No significant pericardial effusion. LYMPH NODES: No lymphadenopathy is evident. BONES: No focal osseous abnormality or acute fracture. UPPER ABDOMEN: The gallbladder is surgically absent. Remaining visualized upper abdominal organs are unremarkable. IMPRESSION: No pulmonary embolism. Subsegmental atelectasis and fibrotic changes in the bilateral lower lobes. Postsurgical absence of the gallbladder. /[place] DICTATED BY: LOVELY GUTIERRES Jr., MD DATE: 03/27/252246 ELECTRONICALLY SIGNED BY: LOVELY GUTIERRES Jr., MD DATE: 03/27/252246 PATIENT: KIM SOTELO MR#: [id number] : 1960 SEX: F AGE: 64 LOCATION: [facility] ORDER 1321 STATUS: REG ER REPORT#: [id number] SERVICE 1319 REASON: palpitations ORDERING PHYSICIAN: SHANDA COSME MD PROCEDURE: CXR1VW - CHEST 1VW EXAM: Chest radiograph 1 view HISTORY: Palpitations COMPARISON: 06/15/2024 FINDINGS: No pulmonary consolidations. No pleural effusion or pneumothorax. Stable cardiomediastinal silhouette and pulmonary vasculature. Degenerative changes. IMPRESSION: No acute cardiopulmonary disease. /[place] DICTATED BY: ALL MUÑIZ MD DATE: 03/27/251519 ELECTRONICALLY SIGNED BY: ALL MUÑIZ MD DATE: 03/27/251519 Assessment/Plan: ASSESSMENT: Possible May-Thurner syndrome Palpitations, etiology to be determined (history of AFib, currently in normal sinus rhythm) Urinary tract infection POA Shortness of breath, ruled out pulmonary embolism, symptoms possibly secondary to an episode of AFib before admission Left lower extremity venous stasis - scheduled for lower extremity venous procedure with Dr. Chen. Osteoarthritis History of atrial fibrillation orthostatic dizzinesss Hypertension POA Type 2 diabetes mellitus POA Angina Asthma Obstructive sleep apnea Bradycardia, likely secondary to labetalol Discharge Instructions: Take pain medications as needed Take plenty of fluids and stay hydrated Follow up with the primary care for the referral with Cardiology Follow up with the Cardiology for the venogram procedure Take medications as prescribed. Has a heart healthy diet, low-sodium and low-fat Exercise as tolerated Physical therapy required for your osteoarthritis Continue using CPAP machine Follow up with primary care in 1 week follow up with Cardiology in 1 week Home Medications: Active Scripts Tramadol HCl/Acetaminophen (Tramadol-Acetaminophn 37.5-325) 37.5 Mg-325 Mg Tablet, 1 TAB PO Q4HPRN PRN for pain for 5 Days, #20 TAB 0 Refills Prov:JORGE WHALEN MD 03/05/25 Prednisone (Prednisone) 20 Mg Tablet, 1 TAB PO AD for 6 Days, #14 TAB 0 Refills TAKE 1 TAB BY MOUTH THREE TIMES PER DAY X3 DAYS, THEN TAKE 1 TAB BY MOUTH TWICE A DAY X2 DAYS, THEN TAKE 1 TAB BY MOUTH ONCE A DAY X1 DAY. Prov:JORGE WHALEN MD 03/05/25 Cyclobenzaprine HCl (Cyclobenzaprine HCl) 5 Mg Tablet, 1 TAB PO HSPRN PRN for muscle spasms for 30 Days, #30 TAB 0 Refills Prov:JORGE WHALEN MD 03/05/25 Ketorolac Tromethamine (Ketorolac Tromethamine) 10 Mg Tablet, 1 TAB PO BID PRN for pain for 5 Days, #10 TAB 0 Refills Prov:ALDEN CORTEZ NP 01/03/25 Cephalexin Monohydrate (Keflex) 500 Mg Cap, 1 CAP PO BID for 5 Days, #10 CAP 0 Refills Prov:ISABELLA CAMPBELL MD 09/01/24 Ondansetron (Ondansetron Odt) 4 Mg Tab.rapdis, 1 TAB PO Q8HPRN PRN for nausea/vomiting for 4 Days, #12 TAB 0 Refills Prov:ISABELLA CAMPBELL MD 09/01/24 Lactulose (Lactulose) 20 Gram/30 Ml Solution, 30 ML PO DAILY for constipation for 30 Days, #900 ML 0 Refills Prov:JORGE WHALEN MD 06/15/24 Cephalexin Monohydrate (Keflex) 500 Mg Cap, 500 MG PO BID for 5 Days, #10 CAP Prov:SHANDA COSME MD 05/20/24 Gabapentin (Gabapentin) 100 Mg Capsule, 100 MG PO BID PRN for PAIN LEVEL 6 TO 10 for 4 Days, #8 CAP Prov:SHANDA COSME MD 05/20/24 Baclofen (Baclofen) 10 Mg Tablet, 10 MG PO BID for 5 Days, #10 TAB Prov:CHINA DUTTA 04/29/24 Hydralazine HCl (Apresoline) 25 Mg Tab, 25 MG PO BID, #60 TAB Prov:MERRITT FLORES MD 03/04/24 Furosemide (Lasix 20Mg Tab) 20 Mg Tablet, 20 MG PO DAILY, #30 TAB Prov:MERRITT FLORES MD 03/04/24 Apixaban (Eliquis) 5 Mg Tablet, 5 MG PO BID, #60 TAB Prov:MERRITT FLORES MD 03/04/24 Reported Medications Insulin Degludec (Tresiba) 100 Unit/Ml Vial, 15 UNIT SQ DAILY, VIAL 03/27/25 Insulin Lispro (Humalog) 100 Unit/Ml Cartridge, 10 UNITS SQ TIDAC, CARTRIDGE 03/27/25 Ropinirole HCl (Ropinirole HCl) 0.25 Mg Tablet, 2 TAB PO HS for 30 Days, #30 TAB 0 Refills 03/27/25 Budesonide/Formoterol Fumarate (Symbicort 160-4.5 Mcg Inhaler) 160 Mcg-4.5 Mcg/Actuation Hfa.aer.ad, 2 PUFF IH BID, GM 0 Refills 03/27/25 Labetalol HCl (Labetalol HCl) 100 Mg Tablet, 1 TAB PO BID for 30 Days, #60 TAB 0 Refills 03/27/25 Metoclopramide HCl (Metoclopramide HCl) 5 Mg Tablet, 5 MG PO DAILY, TAB 03/27/25 Pantoprazole Sodium (Pantoprazole Sodium) 20 Mg Tablet.dr, 1 TAB PO DAILY for 30 Days, #30 TAB 0 Refills 03/27/25 Vit A/C/E AC/Znox/Cupric Oxide (Eyeprotect Tablet) 7,160-113 Tablet, 1 EACH PO DAILY, TAB 02/19/24 Montelukast Sodium (Montelukast Sodium) 10 Mg Tablet, 10 MG PO DAILY, TAB 02/19/24 Tizanidine HCl (Tizanidine HCl) 2 Mg Tablet, 2 MG PO HSPRN PRN for MUSCLE SPASMS, TAB 02/19/24 Hydrochlorothiazide (Hydrochlorothiazide) 12.5 Mg Tablet, 12.5 MG PO DAILY, TAB 02/19/24 Telmisartan (Telmisartan) 80 Mg Tablet, 80 MG PO DAILY, TAB 02/19/24 Aspirin (ASPIRIN 81 MG ECTAB) 81 Mg Ectab, 81 MG PO DAILY, TAB.EC 09/21/18 Oxybutynin Chloride (Oxybutynin Chloride) 5 Mg Tablet, 10 MG PO DAILY, TAB 09/21/18 Atorvastatin Calcium (Atorvastatin Calcium) 40 Mg Tablet, 40 MG PO DAILY, TAB 01/28/18 Discontinued Reported Medications Labetalol HCl (Labetalol HCl) 100 Mg Tablet, 100 MG PO DAILY, TAB 02/19/24 New Medications: Levofloxacin (Levofloxacin) 500 Mg Tablet 1 TAB PO DAILY for 7 Days, #7 TAB 0 Refills Metoprolol Tartrate (Lopressor) 25 Mg Tab 25 MG PO BID, #60 TAB Continued Medications: Apixaban (Eliquis) 5 Mg Tablet 5 MG PO BID, #60 TAB Atorvastatin Calcium (Atorvastatin Calcium) 40 Mg Tablet 40 MG PO DAILY, TAB Budesonide/Formoterol Fumarate (Symbicort 160-4.5 Mcg Inhaler) 160 Mcg-4.5 Mcg/Actuation Hfa.aer.ad 2 PUFF IH BID, GM 0 Refills Cyclobenzaprine HCl (Cyclobenzaprine HCl) 5 Mg Tablet 1 TAB PO HSPRN PRN for muscle spasms for 30 Days, #30 TAB 0 Refills Hydrochlorothiazide (Hydrochlorothiazide) 12.5 Mg Tablet 12.5 MG PO DAILY, TAB Insulin Degludec (Tresiba) 100 Unit/Ml Vial 15 UNIT SQ DAILY, VIAL Insulin Lispro (Humalog) 100 Unit/Ml Cartridge 10 UNITS SQ TIDAC, CARTRIDGE Metoclopramide HCl (Metoclopramide HCl) 5 Mg Tablet 5 MG PO DAILY, TAB Montelukast Sodium (Montelukast Sodium) 10 Mg Tablet 10 MG PO DAILY, TAB Oxybutynin Chloride (Oxybutynin Chloride) 5 Mg Tablet 10 MG PO DAILY, TAB Pantoprazole Sodium (Pantoprazole Sodium) 20 Mg Tablet.dr 1 TAB PO DAILY for 30 Days, #30 TAB 0 Refills Ropinirole HCl (Ropinirole HCl) 0.25 Mg Tablet 2 TAB PO HS for 30 Days, #30 TAB 0 Refills Telmisartan (Telmisartan) 80 Mg Tablet 80 MG PO DAILY, TAB Tramadol HCl/Acetaminophen (Tramadol-Acetaminophn 37.5-325) 37.5 Mg-325 Mg Tablet 1 TAB PO Q4HPRN PRN for pain for 5 Days, #20 TAB 0 Refills Discontinued Medications: Labetalol HCl (Labetalol HCl) 100 Mg Tablet 1 TAB PO BID for 30 Days, #60 TAB 0 Refills Time spent arranging discharge: 1-30 minutes ATTESTATION BY PHYSICIAN I have seen and examined the patient. I reviewed the documentation, medical decision making, and treatment plan as noted by the resident provider above. I agree with the findings and plan of care. Manuel Terrell MD, KEERTI K MD Mar 30, 2025 07:11
--- NOTE | 2025-03-30 11:45 | NUR ---
DISCHARGE Patient provided with discharge instructions. Patient will keep current procedure appointment and follow up with PCP. All questions answered and patient verbalized understanding. Patient asked if doctor was going to order tramadol for arm pain. Called Dr. Castillo to ask and he stated he will write a new prescription; he had continued home medication but since patient reports being out of prescription, he will order electronically. Updated patient. Patient IV and telemetry pack removed. Patient to discharge home with family, pending pick up truck driver by son.
[2025-03-30] MEDS ORDERED: TRAM-543 PO (14:10)
== END 2025-03-30 12:22 | disposition home or self-care (01) | DRG 309 ==
LOC: EDH 13:15 → EDHIP 16:52 → 3BH 03-28 23:10
PROVIDERS: ADMIT Hospitalist; ATTEND Hospitalist
DX: I48.91 Unspecified atrial fibrillation (principal); I50.22 Chronic systolic (congestive) heart failure; N39.0 Urinary tract infection, site not specified; Z68.41 Body mass index [BMI] 40.0-44.9, adult; E66.01 Morbid (severe) obesity due to excess calories; G47.33 Obstructive sleep apnea (adult) (pediatric); J45.909 Unspecified asthma, uncomplicated; Z96.653 Presence of artificial knee joint, bilateral; B96.20 Unspecified Escherichia coli [E. coli] as the cause of diseases classified elsewhere; E78.00 Pure hypercholesterolemia, unspecified; I25.119 Atherosclerotic heart disease of native coronary artery with unspecified angina pectoris; I11.0 Hypertensive heart disease with heart failure; F41.9 Anxiety disorder, unspecified; I34.0 Nonrheumatic mitral (valve) insufficiency; E11.9 Type 2 diabetes mellitus without complications; Z82.3 Family history of stroke; Z82.49 Family history of ischemic heart disease and other diseases of the circulatory system; Z83.3 Family history of diabetes mellitus; Z79.01 Long term (current) use of anticoagulants; Z86.718 Personal history of other venous thrombosis and embolism
CPT/HCPCS: 36415; 71045; 71270; 73030; 73130; 80048; 80053; 81001; 82550; 82948; 83690; 83735; 83880; 84484; 85025; 85027; 85378; 85610; 85651; 85730; 86038; 86140; 86431; 86617; 87086; 87186; 93005; 93306; 93356; 93970; 99285; G0378; J2270; J3475; Q9967

== ENCOUNTER 2025-05-09 18:27 | Emergency (ER) | payer OTHER, MEDICAID ==
[~2025-05-09] VITALS: Ht 157.5 cm; Wt 105.2 kg
[~2025-05-09 18:27] MED LIST changes: -AEC81 PO; -BACL10TA PO; +BUDE10.2 IH; -CEPH500B PO; -FURO20TA6 PO; -GABA-529 PO; -HYDR25 PO; +INSU100C14 SQ; +INSU100V37 SQ; -KETO10TA2 PO; -LABE100T7 PO; -LACT10SO9 PO; +LEVO-70 PO; +METO25 PO; +METO5TAB2 PO; -ONDA-243 PO; +PANT20TA18 PO; -PRED20TA3 PO; +ROPI0.2535 PO; -TIZA-194 PO; -VIT-11 PO
--- NOTE | 2025-05-09 19:12 | NUR ---
PT CARE ASSUMED AT THIS TIME
[2025-05-09 19:16] LABS: APPEARANCE,URINE CLEAR (CLEAR); GLUCOSE, URINE (UA) NEGATIVE (NEGATIVE); LEUKOCYTE ESTERASE ,URINE NEGATIVE Leu/uL (NEGATIVE); NITRATE,URINE NEGATIVE (NEGATIVE); OCCULT BLOOD,URINE SMALL (NEGATIVE)
[2025-05-09 19:17] LABS: IMMATURE GRANULOCYTE ABSOLUTE 0.01 K/uL (0-1); NUCLEATED RED BLOOD CELLS 0.0 % (0.0-0.19); PLATELET COUNT (AUTO) 215 K/uL (130-400); RED BLOOD CELL COUNT(AUTO) 4.14 MIL/uL (4.00-5.50); RED CELL DISTRIBUTION WIDTH 14.2 % (11.0-15.5); WHITE BLOOD COUNT (AUTO) 6.3 K/uL (4.8-10.8)
--- NOTE | 2025-05-09 19:18 | EKG ---
[facility] Test Date: 2025-05-09 Test Time: 19:13:35 Pat Name: KIM SOTELO Department: ED Room: Gender: F Cloth Shader: [id number] : 1960 Requested By: JORGE WHALEN Order Number: [id number] Reading MD: Boone Bryson Measurements Intervals [place] Rate: 66 P: 40 NM: 217 QRS: -3 QRSD: 101 T: 47 QT: 459 QTc: 481 Interpretive Statements Sinus rhythm Borderline prolonged NM interval Compared to ECG 03/27/2025 13:20:33 Ventricular premature complex(es) no longer present Electronically Signed On 05-11-2025 07:23:27 CDT by Boone Bryson Please click the below link to view image of tracing.
[2025-05-09 19:19] LABS: ADD UA MICROSCOPIC YES
[2025-05-09 19:23] LABS: SQUAMOUS EPITHELIAL CELL,UR FEW /HPF (0-2)
--- NOTE | 2025-05-09 19:24 | ERN ---
ED Note History of Present Illness Stated Complaint: BLOOD IN URINE Chief Complaint: Blood in Urine: Time Seen by MD: 19:11 Dictation: This is a 64-year-old female who presented to the emergency room with complaints of lower abdominal pain and she noted little specks of blood in the urine for the past 24 hours. Her pain is mostly in the hypogastric area more towards the left than right. He also reported that she has had arthritis and right shoulder pain. No frequency burning micturition. No flank pain. Temperature 98.4 pulse 94 respirations 18 blood pressure 134/87 with a pulse oximetry of 99% on room air. Chronic medical problems include diabetes mellitus, hypertension, atrial fibrillation, gastroesophageal reflux, diabetic gastroparesis, hypercholesterolemia, history of umbilical hernia Allergies: Coded Allergies: No Known Drug Allergies (Unverified Allergy, 12/27/11) Home Meds Active Scripts Acetaminophen with Codeine (Acetaminophen-Cod #3 Tablet) 300 Mg-30 Mg Tablet, 1 TAB PO Q6HPRN PRN for pain for 3 Days, #12 TAB 0 Refills Prov:JORGE WHALEN MD 05/09/25 Tamsulosin HCl (Flomax) 0.4 Mg Cap.er.24h, 1 CAP PO DAILY for 10 Days, #10 CAP 0 Refills Prov:JORGE WHALEN MD 05/09/25 Tramadol HCl/Acetaminophen (Tramadol-Acetaminophn 37.5-325) 37.5 Mg-325 Mg Tablet, 1 TAB PO TIDP PRN for pain for 7 Days, #21 TAB 0 Refills Prov:RINA TELLO MD 03/30/25 Levofloxacin (Levofloxacin) 500 Mg Tablet, 1 TAB PO DAILY for 7 Days, #7 TAB 0 Refills Prov:ARMIN MORALEZ MD 03/30/25 Metoprolol Tartrate (Lopressor) 25 Mg Tab, 25 MG PO BID, #60 TAB Prov:ARMIN MORALEZ MD 03/30/25 Tramadol HCl/Acetaminophen (Tramadol-Acetaminophn 37.5-325) 37.5 Mg-325 Mg Tablet, 1 TAB PO Q4HPRN PRN for pain for 5 Days, #20 TAB 0 Refills Prov:JORGE WHALEN MD 03/05/25 Cyclobenzaprine HCl (Cyclobenzaprine HCl) 5 Mg Tablet, 1 TAB PO HSPRN PRN for muscle spasms for 30 Days, #30 TAB 0 Refills Prov:JORGE WHALEN MD 03/05/25 Apixaban (Eliquis) 5 Mg Tablet, 5 MG PO BID, #60 TAB Prov:MERRITT FLORES MD 03/04/24 Reported Medications Insulin Degludec (Tresiba) 100 Unit/Ml Vial, 15 UNIT SQ DAILY, VIAL 03/27/25 Insulin Lispro (Humalog) 100 Unit/Ml Cartridge, 10 UNITS SQ TIDAC, CARTRIDGE 03/27/25 Ropinirole HCl (Ropinirole HCl) 0.25 Mg Tablet, 2 TAB PO HS for 30 Days, #30 TAB 0 Refills 03/27/25 Budesonide/Formoterol Fumarate (Symbicort 160-4.5 Mcg Inhaler) 160 Mcg-4.5 Mcg/Actuation Hfa.aer.ad, 2 PUFF IH BID, GM 0 Refills 03/27/25 Metoclopramide HCl (Metoclopramide HCl) 5 Mg Tablet, 5 MG PO DAILY, TAB 03/27/25 Pantoprazole Sodium (Pantoprazole Sodium) 20 Mg Tablet.dr, 1 TAB PO DAILY for 30 Days, #30 TAB 0 Refills 03/27/25 Montelukast Sodium (Montelukast Sodium) 10 Mg Tablet, 10 MG PO DAILY, TAB 02/19/24 Hydrochlorothiazide (Hydrochlorothiazide) 12.5 Mg Tablet, 12.5 MG PO DAILY, TAB 02/19/24 Telmisartan (Telmisartan) 80 Mg Tablet, 80 MG PO DAILY, TAB 02/19/24 Oxybutynin Chloride (Oxybutynin Chloride) 5 Mg Tablet, 10 MG PO DAILY, TAB 09/21/18 Atorvastatin Calcium (Atorvastatin Calcium) 40 Mg Tablet, 40 MG PO DAILY, TAB 01/28/18 Past Medical History Past Medical History: A-Fib, Diabetes-Type II, Hypertension Additional Past Medical Hx: UMBILICAL HERNIA, SEPSIS Surgical History: Appendectomy, Other, BTL Surgical History Other: UMB. HERNIA REPAIR, ADEN FEET BUNION, ADEN KNEE, LT HIP Family History: CAD, DM, HTN Social History: Negative, Lives with family, Other History: Not Applicable RN Note Reviewed/Agreed w/PFSH: Yes Review of System Dictation Constitutional: Negative for fever,chills, and weight loss Eyes: Negative for injury, pain,redness, and discharge ENT: Negative for injury,pain or swelling Cardiovascular: Negative for chest pain, palpitations, and edema Respiratory: Negative for shortness of breath, cough, and wheezing, Abdomen/GI: Positive for lower abdominal pain, nausea, vomiting, diarrhea, and constipation Back: Negative for injury and pain : Negative for injury, bleeding and discharge positive for blood in the urine MS/Extremity: Negative for injury and deformity Skin: Negative for rash, and discoloration Neuro: Negative for headache, weakness, numbness, tingling, and seizure Psych: Negative for suicide ideation, homicidal ideation, and hallucinations Initial Vital Sign VS Vital Signs Date Time Temp Pulse Resp B/P (MAP) Pulse Ox O2 Delivery O2 Flow Rate FiO2 05/09/25 18:31 98.4 94 18 134/87 99 Room Air 0 05/09/25 19:30 21 Physical Exam Dictation General: awake, alert, NAD morbidly obese female Head/Face: Normocephalic, atraumatic Eyes: PERRL, EOMI, vision at baseline ENT: oral cavity clear, TMs clear, no signs of infection Neck: Trachea midline, supple, no nuchal rigidity Cardiovascular: RRR, normal S1/S2, No MRGs, no JVD Respiratory: CTAB, no respiratory distress, No rales or wheezes Abdomen: Soft, tenderness in the hypogastric area, non-distended, normal bowel sounds, no guarding or rebound. Skin: Warm, dry, normal turgor, no rash MS/Extremity: Pulses equal, no cyanosis, neurovascular intact, FROM Neuro: COAx4, GCS 15, strength 5/5, CN 2-12 intact, normal cerebellar exam, normal gait, Psych: Normal behavior, mood, and affect normal Extremities-trace edema without any palpable cords, Homans sign is negative Results (Laboratory/Radiology) Laboratory/Radiology Laboratory Tests Test 05/09/25 18:56 05/09/25 19:03 Urine Color LIGHT-YELLOW (YELLOW) Urine Appearance CLEAR (CLEAR) Urine pH 6.5 (5.0-8.0) Urine Specific [place] 1.017 (1.001-1.031) Urine Protein NEGATIVE mg/dL (NEGATIVE) Urine Glucose (UA) NEGATIVE mg/dL (NEGATIVE) Urine Ketones NEGATIVE mg/dL (NEGATIVE) Urine Occult Blood SMALL (NEGATIVE) H Urine Nitrate NEGATIVE (NEGATIVE) Urine Bilirubin NEGATIVE mg/dL (NEGATIVE) Urine Urobilinogen 0.2 mg/dL (0.2-1.0) Urine Leukocyte Esterase NEGATIVE [place]/uL Urine RBC 26-50 /HPF (0-1) H Urine WBC 2-5 /HPF (0-1) H Urine Squamous Epithelial Cells FEW /HPF (0-2) Urine Bacteria RARE /HPF (None Seen) White Blood Count 6.3 K/uL (4.8-10.8) Red Blood Count 4.14 MIL/uL (4.00-5.50) Hemoglobin 11.4 g/dL (12.0-16.0) L Hematocrit 34.5 % (36-48) L Mean Corpuscular Volume 83.3 fL (79-99) Mean Corpuscular Hemoglobin 27.5 pg (27.0-33.0) Mean Corpuscular Hemoglobin Concent 33.0 g/dL (32.0-36.0) Red Cell Distribution Width 14.2 % (11.0-15.5) Platelet Count 215 K/uL (130-400) Mean Platelet Volume 10.7 fL (7.5-10.5) H Immature Granulocyte % (Auto) 0.2 % (0-1) Neutrophils (%) (Auto) 55.6 % (40.0-77.0) Lymphocytes (%) (Auto) 31.0 % (21.0-51.0) Monocytes (%) (Auto) 7.8 % (3.0-13.0) Eosinophils (%) (Auto) 5.1 % (0.0-8.0) Basophils (%) (Auto) 0.3 % (0.0-5.0) Neutrophils # (Auto) 3.5 K/uL (1.8-7.7) Lymphocytes # (Auto) 2.0 K/uL (1.0-4.8) Monocytes # (Auto) 0.5 K/uL (0.1-1.0) Eosinophils # (Auto) 0.32 K/uL (0.00-0.70) Basophils # (Auto) 0.02 K/uL (0.00-0.20) Absolute Immature Granulocyte (auto 0.01 K/uL (0-1) Nucleated Red Blood Cells 0.0 % (0.0-0.19) Sodium Level 138 mmol/L (136-145) Potassium Level 3.7 mmol/L (3.5-5.1) Chloride Level 103 mmol/L (101-111) Carbon Dioxide Level 29 mmol/L (21-32) Blood Urea Nitrogen 17 mg/dL (7-18) Creatinine 0.6 mg/dL (0.5-1.0) Glomerular Filtration Rate Calc 100 mL/min (>90) Random Glucose 106 mg/dL (70-105) H Total Calcium 9.0 mg/dL (8.5-10.1) Troponin I High Sensitivity 6 ng/L (4-50) Lipase 29 U/L (16-77) Labs Reviewed?: Yes CT Scan Comment: REASON: hematuria ORDERING PHYSICIAN: JORGE WHALEN MD PROCEDURE: ABD PELVWO - CT ABD/PEL WO CON RENAL/APPY EXAM: CT Abdomen and Pelvis Without IV contrast CLINICAL HISTORY: Patient presents with hematuria. TECHNIQUE: Axial computed tomography images of the abdomen and pelvis without intravenous contrast. CONTRAST: No IV contrast. COMPARISON: Compared to the prior CT dated January 03, 2025. FINDINGS: LUNG BASES: Subsegmental atelectasis with few fibrotic strands in the bilateral lower lobes. No pleural effusions. LIVER: Unremarkable. GALLBLADDER AND BILE DUCTS: The gallbladder is surgically absent. No biliary ductal dilatation. PANCREAS: Unremarkable. SPLEEN: Unremarkable. ADRENAL GLANDS: Unremarkable. KIDNEYS, URETERS, AND BLADDER: Stable 0.6 cm calculus in the lower calyx of the left kidney. No hydronephrosis or hydroureter. The urinary bladder is incompletely distended at the time of examination, limiting evaluation for possible wall thickening. In the appropriate clinical setting, mild cystitis cannot be excluded. Recommended clinical correlation. STOMACH AND BOWEL: Mild constipation. No evidence of bowel obstruction. No evidence suggesting enteritis or colitis. APPENDIX: No evidence of acute appendicitis on CT examination. PERITONEUM: No free fluid. No free air. LYMPH NODES: No lymphadenopathy. REPRODUCTIVE: Stable partially calcified fundal subserosal uterine fibroid, limited evaluation due to the non-contrast nature of the study. VASCULATURE: Left common iliac vein stent graft. No evidence of abdominal aortic aneurysm. ABDOMINAL WALL: Interval increase in the divarication of recti with an umbilical ventral abdominal wall defect containing omental fat, defect measuring 4.5 cm in maximum transverse dimension and 3.4 cm in maximum craniocaudal dimension. BONES: Left hip arthroplasty implant. Multilevel mild degenerative changes in the spine. No aggressive appearing osseous lesion. No acute osseous pathology is evident. IMPRESSION: Stable 0.6 cm calculus in the lower calyx of the left kidney. Interval increase in umbilical hernia. Stable partially calcified fundal subserosal uterine fibroid. Left common iliac vein stent graft. Mild constipation. The urinary bladder is incompletely distended, and in the appropriate clinical setting, mild cystitis cannot be excluded. Recommended clinical correlation. /[place] DICTATED BY: LOVELY GUTIERRES Jr., MD DATE: 05/09/252228 ELECTRONICALLY SIGNED BY: LOVELY GUTIERRES Jr., MD DATE: 05/09/252228 ED Course ED Course Orders Procedure Category Date Status Time Urinalysis Profile LAB 05/09/25 Complete 18:57 Iv Insertion CPOE 05/09/25 Transmitted 18:57 Vital Signs Per CPOE 05/09/25 Transmitted Routine 19:07 Saline Lock Iv CPOE 05/09/25 Transmitted 19:07 Cbc With Differential LAB 05/09/25 Complete 19:07 Lipase LAB 05/09/25 Complete 19:07 Urinalysis Profile LAB 05/09/25 Logged 19:07 12 Lead Ekg Tracing- EKG 05/09/25 Complete Technical 19:07 Troponin I High LAB 05/09/25 Complete Sensitivity 19:07 Basic Metabolic Panel LAB 05/09/25 Complete 19:07 Ct Abd/Pel Wo Con CT 05/09/25 Resulted Renal/Appy 19:55 Morphine 4mg Syg PHA 05/09/25 Complete (Morphine 4mg Syg) 21:30 Ondansetron 4mg Inj PHA 05/09/25 Complete (Zofran 4mg Inj) 21:30 0.9%Nacl 1000ml (Ns PHA 05/09/25 Complete 1000ml) 21:30 Current Medications Medications (Trade) Dose Ordered Sig/Angelic Route PRN Reason Start Time Stop Time Status Last Admin Dose Admin Morphine Sulfate (morPHINE 4MG SYG) 4 mg ONCE ONCE IVP 05/09/25 21:30 05/09/25 21:31 DC 05/09/25 21:31 Ondansetron HCl (zoFRAN 4MG INJ) 4 mg ONCE ONCE IVP 05/09/25 21:30 05/09/25 21:31 DC 05/09/25 21:29 Sodium Chloride 1,000 ml @ 0 mls/hr ONCE ONCE IV 05/09/25 21:30 05/09/25 21:31 DC 05/09/25 21:29 Vital Signs Date Time Temp Pulse Resp B/P (MAP) Pulse Ox O2 Delivery O2 Flow Rate FiO2 05/09/25 23:14 98.2 75 16 162/69 98 Room Air* 0 05/09/25 21:54 98.2 76 15 151/92 98 Room Air* 0 05/09/25 20:30 82 16 155/87 98 Room Air* 0 05/09/25 19:30 98.4 73 16 149/79 98 Room Air* 0 05/09/25 18:31 98.4 94 18 134/87 99 Room Air 0 We will perform diagnostic labs, advanced imaging and administer medications according to the patient's complaint. Once the results are available, will review and personally interpreted the labs to rule out any acute life- threatening emergency the trach require immediate intervention and treatment. I will then re-evaluate the patient after treatment and diagnostic exams have return to determine whether the patient requires any further testing, can safely be discharged home or need further admission to hospital for additional treatment and evaluation. 7:54 p.m. labs reviewed CBC showed white count of 6.3 hemoglobin 11.4. BNP 7 is with a normal limits. Lipase 29 troponins are negative. In review of the old records the hemoglobin is around the same for the past few years. Gentle hydration and symptomatic management and pain is extremely severe which makes me concerned for intrapelvic pathology or perhaps nephrolithiasis. I recommended a CT scan of the abdomen and pelvis and patient is agreeable 9:[address] abdomen and pelvis renal protocol still pending 9:[address] scan shows a left 0.6 cm ureteral calculus. No evidence of any hydroureter or hydronephrosis noted. I updated the patient on CT scan findings and patient feels significantly improved with symptomatic management and we will discharge her on pain medication and tamsulosin to follow up with her primary care physician. Medical Decision Making MDM : Differential diagnosis: Acute cystitis, diverticulitis, ovarian cyst, uterine pathology, renal calculi Rationale: Tests considered and ordered secondary to shared decision making include: Previous outside records reviewed: Old ER visits. Risk of complication and/or morbidity or mortality of patient management: None Medications-Per medication reconciliation Need for hospitalization: Patient does not meet criteria for hospitalization. Need for emergency major/minor surgery: No There are no social concerns with this patient. Prescription drug management Prescriptions will include symptomatic care Patient's prior external medical records from other ER visits were reviewed by me as indicated. Prior testing and results from previous visits were reviewed. Prior tests were taken into account with medical decision making and resource utilization, independent historian/historians were used to obtain complete medical history. I independently interpreted the test that were performed, results were reviewed by me and considered findings on radiology if ordered. Medical management and examination interpretation discussions were had by me with other qualified healthcare professionals as indicated for the patient's care. Problem List Problem List: (1) Renal colic on left side (2) Nephrolithiasis (3) Umbilical hernia (4) Constipation (5) Nilesh hematuria (6) History of atrial fibrillation DX & DISP Disposition: Discharge Departure Impression: Primary Impression: Renal colic on left side Additional Impressions: Nephrolithiasis, Nilesh hematuria, Constipation, Umbilical hernia Condition: Stable Scripts Acetaminophen with Codeine (Acetaminophen-Cod #3 Tablet) 300 Mg-30 Mg Tablet 1 TAB PO Q6HPRN PRN for pain for 3 Days, #12 TAB 0 Refills Prov: JORGE WAHLEN MD 05/09/25 Tamsulosin HCl (Flomax) 0.4 Mg Cap.er.24h 1 CAP PO DAILY for 10 Days, #10 CAP 0 Refills Prov: JORGE WHALEN MD 05/09/25 Additional Instructions: Patient and the caregiver have been informed of all the diagnostic tests and the imaging conducted during the today's visit to the emergency room and has verbalized understanding of the results I have personally reviewed and interpreted all diagnostic exams performed here in the ER today as well as the vital signs documented by the nursing staff. The patient is now being discharged to home and should follow up with the primary care physician or the specialist as directed by the ER staff. Follow-up with primary care provider in 1 to 2 days. Take medications as directed here in the emergency room. Okay to continue home medications unless otherwise discussed during your visit in the emergency room today. Return to your nearest emergency room if symptoms worsen or if there is no improvement. Call 911 if you need immediate assistance. Take Tylenol or Motrin [id number] as needed and if no contraindications are present. Increase oral hydration. A wound culture or urine culture was ordered here in the em ergency room department please follow-up with primary care provider and advise them to get repeat ports from our facility. If you had any Chung wrap/splints that were applied here, please do not remove them until you see your primary care or specialty. Referrals: DANIEL SCOTT MD (PCP) JORGE WHALEN MD May 09, 2025 19:24
[2025-05-09 19:25] LABS: CREATININE 0.6 mg/dL (0.5-1.0); GLOMERULAR FILTR. RATE CALC 100.0 mL/min (>90); GLUCOSE,RANDOM 106.0 mg/dL (70-105); SODIUM SERUM 138.0 mmol/L (136-145); UREA NITROGEN, BLOOD 17.0 mg/dL (7-18)
[2025-05-09] MEDS: 0.9%NACL 1000ML 1,000 ML IV ONE (21:29)
--- NOTE | 2025-05-09 21:30 | HMCIMG ---
EXAM: CT Abdomen and Pelvis Without IV contrast CLINICAL HISTORY: Patient presents with hematuria. TECHNIQUE: Axial computed tomography images of the abdomen and pelvis without intravenous contrast. CONTRAST: No IV contrast. COMPARISON: Compared to the prior CT dated January 03, 2025. FINDINGS: LUNG BASES: Subsegmental atelectasis with few fibrotic strands in the bilateral lower lobes. No pleural effusions. LIVER: Unremarkable. GALLBLADDER AND BILE DUCTS: The gallbladder is surgically absent. No biliary ductal dilatation. PANCREAS: Unremarkable. SPLEEN: Unremarkable. ADRENAL GLANDS: Unremarkable. KIDNEYS, URETERS, AND BLADDER: Stable 0.6 cm calculus in the lower calyx of the left kidney. No hydronephrosis or hydroureter. The urinary bladder is incompletely distended at the time of examination, limiting evaluation for possible wall thickening. In the appropriate clinical setting, mild cystitis cannot be excluded. Recommended clinical correlation. STOMACH AND BOWEL: Mild constipation. No evidence of bowel obstruction. No evidence suggesting enteritis or colitis. APPENDIX: No evidence of acute appendicitis on CT examination. PERITONEUM: No free fluid. No free air. LYMPH NODES: No lymphadenopathy. REPRODUCTIVE: Stable partially calcified fundal subserosal uterine fibroid, limited evaluation due to the non-contrast nature of the study. VASCULATURE: Left common iliac vein stent graft. No evidence of abdominal aortic aneurysm. ABDOMINAL WALL: Interval increase in the divarication of recti with an umbilical ventral abdominal wall defect containing omental fat, defect measuring 4.5 cm in maximum transverse dimension and 3.4 cm in maximum craniocaudal dimension. BONES: Left hip arthroplasty implant. Multilevel mild degenerative changes in the spine. No aggressive appearing osseous lesion. No acute osseous pathology is evident. IMPRESSION: Stable 0.6 cm calculus in the lower calyx of the left kidney. Interval increase in umbilical hernia. Stable partially calcified fundal subserosal uterine fibroid. Left common iliac vein stent graft. Mild constipation. The urinary bladder is incompletely distended, and in the appropriate clinical setting, mild cystitis cannot be excluded. Recommended clinical correlation. /[place]
[2025-05-09] MEDS ORDERED: TAMS-55 PO (21:48)
[2025-05-09] MEDS ORDERED: ACET-2079 PO (21:48)
[2025-05-09 23:14] VITALS: BP 162/69; PULSE 75; RESP 16; TEMP 98.2; O2SAT 98
== END 2025-05-09 23:15 | disposition home or self-care (01) ==
LOC: EDH 18:27
DX: N23 Unspecified renal colic (principal); N20.0 Calculus of kidney; R31.0 Gross hematuria; K42.9 Umbilical hernia without obstruction or gangrene; K59.00 Constipation, unspecified; E11.9 Type 2 diabetes mellitus without complications; I10 Essential (primary) hypertension; I48.91 Unspecified atrial fibrillation; Z79.01 Long term (current) use of anticoagulants; Z79.4 Long term (current) use of insulin; Z79.51 Long term (current) use of inhaled steroids; Z79.899 Other long term (current) drug therapy; Z90.49 Acquired absence of other specified parts of digestive tract; Z98.51 Tubal ligation status; Z98.890 Other specified postprocedural states
CPT/HCPCS: 99285; 74176; 96374; 96375; 84484; 80048; 83690; 85025; 81001; 36415; 93005; J7030; J2405; J2270

== ENCOUNTER 2025-05-19 16:23 | Emergency (ER) | payer OTHER, MEDICAID ==
[~2025-05-19] VITALS: Ht 157.5 cm; Wt 106.1 kg
[~2025-05-19 16:23] MED LIST changes: +ACET-2079 PO; +TAMS-55 PO
[2025-05-19] MEDS: MELOXICAM 7.5 MG TABLET PO STA (17:31)
[2025-05-19 17:37] LABS: IMMATURE GRANULOCYTE ABSOLUTE 0.02 K/uL (0-1); NUCLEATED RED BLOOD CELLS 0.0 % (0.0-0.19); PLATELET COUNT (AUTO) 176 K/uL (130-400); RED BLOOD CELL COUNT(AUTO) 4.10 MIL/uL (4.00-5.50); RED CELL DISTRIBUTION WIDTH 13.9 % (11.0-15.5); WHITE BLOOD COUNT (AUTO) 6.9 K/uL (4.8-10.8)
[2025-05-19 17:45] LABS: CREATININE 0.6 mg/dL (0.5-1.0); GLOMERULAR FILTR. RATE CALC 100.0 mL/min (>90); GLUCOSE,RANDOM 90.0 mg/dL (70-105); SODIUM SERUM 138.0 mmol/L (136-145); UREA NITROGEN, BLOOD 20.0 mg/dL (7-18)
--- NOTE | 2025-05-19 19:44 | ERN ---
ED Note History of Present Illness Stated Complaint: BACK PAIN Chief Complaint: Back Pain or Injury Time Seen by MD: 16:26 Time Seen by Midlevel: 16:30 Dictation: 64-year-old female with a history of hypertension coming in with complaints of pain to the back area along the right scapula worsening when she lifts up her right arm. Patient states it has been going on for one month. Denies having any chest pain, chest discomfort, nausea, vomiting, dizziness, fever. Denies any shortness a breath Allergies: Coded Allergies: No Known Drug Allergies (Unverified Allergy, 12/27/11) Home Meds Active Scripts Acetaminophen with Codeine (Acetaminophen-Cod #3 Tablet) 300 Mg-30 Mg Tablet, 1 TAB PO Q6HPRN PRN for pain for 3 Days, #12 TAB 0 Refills Prov:JORGE WHALEN MD 05/09/25 Tamsulosin HCl (Flomax) 0.4 Mg Cap.er.24h, 1 CAP PO DAILY for 10 Days, #10 CAP 0 Refills Prov:JORGE WHALEN MD 05/09/25 Tramadol HCl/Acetaminophen (Tramadol-Acetaminophn 37.5-325) 37.5 Mg-325 Mg Tablet, 1 TAB PO TIDP PRN for pain for 7 Days, #21 TAB 0 Refills Prov:RINA TELLO MD 03/30/25 Levofloxacin (Levofloxacin) 500 Mg Tablet, 1 TAB PO DAILY for 7 Days, #7 TAB 0 Refills Prov:ARMIN MORALEZ MD 03/30/25 Metoprolol Tartrate (Lopressor) 25 Mg Tab, 25 MG PO BID, #60 TAB Prov:ARMIN MORALEZ MD 03/30/25 Tramadol HCl/Acetaminophen (Tramadol-Acetaminophn 37.5-325) 37.5 Mg-325 Mg Tablet, 1 TAB PO Q4HPRN PRN for pain for 5 Days, #20 TAB 0 Refills Prov:JORGE WHALEN MD 03/05/25 Cyclobenzaprine HCl (Cyclobenzaprine HCl) 5 Mg Tablet, 1 TAB PO HSPRN PRN for muscle spasms for 30 Days, #30 TAB 0 Refills Prov:JORGE WHALEN MD 03/05/25 Apixaban (Eliquis) 5 Mg Tablet, 5 MG PO BID, #60 TAB Prov:MERRITT FLORES MD 03/04/24 Reported Medications Insulin Degludec (Tresiba) 100 Unit/Ml Vial, 15 UNIT SQ DAILY, VIAL 03/27/25 Insulin Lispro (Humalog) 100 Unit/Ml Cartridge, 10 UNITS SQ TIDAC, CARTRIDGE 03/27/25 Ropinirole HCl (Ropinirole HCl) 0.25 Mg Tablet, 2 TAB PO HS for 30 Days, #30 TAB 0 Refills 03/27/25 Budesonide/Formoterol Fumarate (Symbicort 160-4.5 Mcg Inhaler) 160 Mcg-4.5 Mcg/Actuation Hfa.aer.ad, 2 PUFF IH BID, GM 0 Refills 03/27/25 Metoclopramide HCl (Metoclopramide HCl) 5 Mg Tablet, 5 MG PO DAILY, TAB 03/27/25 Pantoprazole Sodium (Pantoprazole Sodium) 20 Mg Tablet.dr, 1 TAB PO DAILY for 30 Days, #30 TAB 0 Refills 03/27/25 Montelukast Sodium (Montelukast Sodium) 10 Mg Tablet, 10 MG PO DAILY, TAB 02/19/24 Hydrochlorothiazide (Hydrochlorothiazide) 12.5 Mg Tablet, 12.5 MG PO DAILY, TAB 02/19/24 Telmisartan (Telmisartan) 80 Mg Tablet, 80 MG PO DAILY, TAB 02/19/24 Oxybutynin Chloride (Oxybutynin Chloride) 5 Mg Tablet, 10 MG PO DAILY, TAB 09/21/18 Atorvastatin Calcium (Atorvastatin Calcium) 40 Mg Tablet, 40 MG PO DAILY, TAB 01/28/18 Past Medical History Past Medical History: Asthma, Diabetes-Type II, High Cholesterol, Hypertension Additional Past Medical Hx: UMBILICAL HERNIA, SEPSIS Surgical History: Cholecystectomy Surgical History Other: HERNIA REPAIR Family History: CAD, DM, HTN Social History: Negative, Lives with family, Other History: Not Applicable Review of System Dictation Constitutional: Negative for fever,chills, and weight loss Eyes: Negative for injury, pain,redness, and discharge ENT: Negative for injury,pain or swelling Cardiovascular: Negative for chest pain, palpitations, and edema Respiratory: Negative for shortness of breath, cough, and wheezing, Abdomen/GI: Negative for abdominal pain, nausea, vomiting, diarrhea, and constipation Back: Complaining of right pain : Negative for injury, bleeding and discharge MS/Extremity: Negative for injury and deformity Skin: Negative for rash, and discoloration Neuro: Negative for headache, weakness, numbness, tingling, and seizure Psych: Negative for suicide ideation, homicidal ideation, and hallucinations Review of Systems: was completed Initial Vital Sign VS Vital Signs Date Time Temp Pulse Resp B/P (MAP) Pulse Ox O2 Delivery O2 Flow Rate FiO2 05/19/25 16:24 100.0 92 18 147/67 95 Room Air 0 05/19/25 19:49 21 Physical Exam Dictation General: awake, alert, NAD Head/Face: Normocephalic, atraumatic Eyes: PERRL, EOMI, vision at baseline ENT: oral cavity clear, TMs clear, no signs of infection Neck: Trachea midline, supple, no nuchal rigidity Cardiovascular: RRR, normal S1/S2, No MRGs, no JVD Respiratory: CTAB, no respiratory distress, No rales or wheezes Abdomen: Soft, non-tender, non-distended, normal bowel sounds, no guarding or rebound. Skin: Warm, dry, normal turgor, no rash MS/Extremity: Pulses equal, no cyanosis, neurovascular intact, FROM, pain on palpation to the right scapular area. Neuro: COAx4, GCS 15, strength 5/5, CN 2-12 intact, normal cerebellar exam, normal gait, Psych: Normal behavior, mood, and affect normal Results (Laboratory/Radiology) Laboratory/Radiology Laboratory Tests Test 05/19/25 17:31 White Blood Count 6.9 K/uL (4.8-10.8) Red Blood Count 4.10 MIL/uL (4.00-5.50) Hemoglobin 11.1 g/dL (12.0-16.0) L Hematocrit 34.2 % (36-48) L Mean Corpuscular Volume 83.4 fL (79-99) Mean Corpuscular Hemoglobin 27.1 pg (27.0-33.0) Mean Corpuscular Hemoglobin Concent 32.5 g/dL (32.0-36.0) Red Cell Distribution Width 13.9 % (11.0-15.5) Platelet Count 176 K/uL (130-400) Mean Platelet Volume 10.4 fL (7.5-10.5) Immature Granulocyte % (Auto) 0.3 % (0-1) Neutrophils (%) (Auto) 66.8 % (40.0-77.0) Lymphocytes (%) (Auto) 21.3 % (21.0-51.0) Monocytes (%) (Auto) 8.8 % (3.0-13.0) Eosinophils (%) (Auto) 2.5 % (0.0-8.0) Basophils (%) (Auto) 0.3 % (0.0-5.0) Neutrophils # (Auto) 4.6 K/uL (1.8-7.7) Lymphocytes # (Auto) 1.5 K/uL (1.0-4.8) Monocytes # (Auto) 0.6 K/uL (0.1-1.0) Eosinophils # (Auto) 0.17 K/uL (0.00-0.70) Basophils # (Auto) 0.02 K/uL (0.00-0.20) Absolute Immature Granulocyte (auto 0.02 K/uL (0-1) Nucleated Red Blood Cells 0.0 % (0.0-0.19) Sodium Level 138 mmol/L (136-145) Potassium Level 4.0 mmol/L (3.5-5.1) Chloride Level 103 mmol/L (101-111) Carbon Dioxide Level 26 mmol/L (21-32) Blood Urea Nitrogen 20 mg/dL (7-18) H Creatinine 0.6 mg/dL (0.5-1.0) Glomerular Filtration Rate Calc 100 mL/min (>90) Random Glucose 90 mg/dL (70-105) Total Calcium 9.3 mg/dL (8.5-10.1) Troponin I High Sensitivity 6 ng/L (4-50) Labs Reviewed?: Yes X-RAY Comment: [place] [id number] [address] IMAGING REPORT Signed PATIENT: KIM SOTELO MR#: [id number] : 1960 SEX: F AGE: 64 LOCATION: [facility] ORDER [id number] STATUS: [facility] REPORT#: [id number] SERVICE [id number] REASON: sob ORDERING PHYSICIAN: ALDEN CORTEZ NP PROCEDURE: CXR1VW - CHEST 1VW EXAM: CR Chest, 1 View. CLINICAL HISTORY: sob COMPARISON: xray chest 03/27/2025 FINDINGS: LUNGS: There is no mass, infiltrate, or acute pulmonary abnormality. PLEURAL SPACES: No evidence of pleural effusion or pneumothorax. MEDIASTINUM: Cardiac size and mediastinal contours within normal limits. BONES: No acute osseous abnormality. IMPRESSION: No acute cardiopulmonary pathology is evident. /[place] DICTATED BY: ZACHERY SCHMIDT MD DATE: 05/19/251937 ELECTRONICALLY SIGNED BY: ZACHERY SCHMIDT MD DATE: 05/19/251937 ED Course ED Course Orders Procedure Category Date Status Time Cbc With Differential LAB 05/19/25 Complete 17:22 Basic Metabolic Panel LAB 05/19/25 Complete 17:22 Troponin I High LAB 05/19/25 Complete Sensitivity 17:22 Meloxicam 7.5mg PHA 05/19/25 Complete (Mobic 7.5mg) 17:22 Current Medications Medications (Trade) Dose Ordered Sig/Angelic Route PRN Reason Start Time Stop Time Status Last Admin Dose Admin Meloxicam (Mobic 7.5mg) 7.5 mg ONCE STAT PO 05/19/25 17:22 05/19/25 17:24 DC 05/19/25 17:31 Vital Signs Date Time Temp Pulse Resp B/P (MAP) Pulse Ox O2 Delivery O2 Flow Rate FiO2 05/19/25 19:49 98.6 89 20 172/81 99 Room Air* 0 21 05/19/25 16:24 100.0 92 18 147/67 95 Room Air 0 HEART Score Response (Comments) Value History: Low suspicion (0) 0 EKG: Normal 0 Age: 45-65yrs (+1) 1 Risk Factors: 1-2 risk factors (+1) 1 Initial Troponin: Normal limit (0) 0 Total 2 Medical Decision Making MDM MDM: 64-year-old female with a history of hypertension coming in with complaints of pain to the back area along the right scapula worsening when she lifts up her right arm. Patient states it has been going on for one month. Denies having any chest pain, chest discomfort, nausea, vomiting, dizziness, fever. Denies any shortness a breath.CBC shows a leukocytosis, no anemia, thrombocytopenia. Chemistry shows normal kidney function. Troponin negative. EKGs shows no ST elevations of reciprocal changes. Chest x-ray shows no acute findings. Due to patient's presenting symptoms, physical exam has a reproducible worsening when patient with the of the arm movements more than likely this is musculoskeletal related versus other etiology. However patient was educated on signs and symptoms of when to return back to the ER. Educated to follow up with her PCP Differential diagnosis: Muscle spasm, ACS, pneumonia Rationale: Tests considered and ordered secondary to shared decision making include: Previous outside records reviewed: Old ER visits. Risk of complication and/or morbidity or mortality of patient management: None Medications-Per medication reconciliation Need for hospitalization: Patient does not meet criteria for hospitalization. Need for emergency major/minor surgery: No There are no social concerns with this patient. Prescription drug management Prescriptions will include symptomatic care Patient's prior external medical records from other ER visits were reviewed by me as indicated. Prior testing and results from previous visits were reviewed. Prior tests were taken into account with medical decision making and resource utilization, independent historian/historians were used to obtain complete medi [facility] history. I independently interpreted the test that were performed, results were reviewed by me and considered findings on radiology if ordered. Medical management and examination interpretation discussions were had by me with other qualified healthcare professionals as indicated for the patient's care. DX & DISP Disposition: Discharge Departure Impression: Primary Impression: Musculoskeletal back pain Condition: Stable Additional Instructions: All your lab work is normal. X-ray is normal. More than likely this is musculoskeletal pain. Follow up with your primary doctor Referrals: DANIEL SCOTT MD (PCP) Time of Disposition: 19:44 I have reviewed the case, and I agree with, Diagnosis and Plan ALDEN CORTEZ NP May 19, 2025 19:44 KAMARI VILLAFUERTE DO May 20, 2025 07:26
[2025-05-19 19:49] VITALS: BP 172/81; PULSE 89; RESP 20; TEMP 98.6; O2SAT 99
== END 2025-05-19 20:05 | disposition home or self-care (01) ==
LOC: EDH 16:23
DX: M54.50 Low back pain, unspecified (principal); E11.9 Type 2 diabetes mellitus without complications; E78.00 Pure hypercholesterolemia, unspecified; I10 Essential (primary) hypertension; J45.909 Unspecified asthma, uncomplicated; Z79.01 Long term (current) use of anticoagulants; Z79.4 Long term (current) use of insulin; Z79.51 Long term (current) use of inhaled steroids; Z79.899 Other long term (current) drug therapy; Z90.49 Acquired absence of other specified parts of digestive tract; Z98.890 Other specified postprocedural states
CPT/HCPCS: 36415; 80048; 84484; 85025; 99283; 99284